=== PATIENT | male | born 1965 | race Caucasian/White ===

== ENCOUNTER 2016-08-26 12:13 | Emergency (ER) | payer BC ==
[2016-05-24 14:07] VITALS: BMI 33.0
[~2016-08-26 12:13] MED LIST: BAYER CHEWABLE81 MG PO; CATAPRES0.1 MG PO; DEPAKOTE ER500 MG PO; ELAVIL25 MG PO; GLUCOPHAGE1000 MG PO; GLUCOTROL XL 1010 MG PO; HYDROCODONE-APA1 TAB PO; KLONOPIN1 MG PO; NEURONTIN 300300 MG PO; NEURONTIN600 MG PO; PLAVIX75 MG PO; PRAVACHOL40 MG PO; TOPROL XL50 MG PO
== END 2016-08-26 16:04 | disposition home or self-care (01) ==
LOC: D.ER 12:13
DX: S80.01XA Contusion of right knee, initial encounter (principal); V43.52XA Car driver injured in collision with other type car in traffic accident, initial encounter; Y93.89 Activity, other specified; Y92.410 Unspecified street and highway as the place of occurrence of the external cause; S39.012A Strain of muscle, fascia and tendon of lower back, initial encounter; M54.9 Dorsalgia, unspecified; I10 Essential (primary) hypertension; E11.9 Type 2 diabetes mellitus without complications; I73.9 Peripheral vascular disease, unspecified; F17.200 Nicotine dependence, unspecified, uncomplicated

== ENCOUNTER 2016-10-25 08:29 | Outpatient (CLI) | payer MEDICAID ==
[~2016-10-25] VITALS: Ht 172.7 cm; Wt 95.5 kg
--- NOTE | ~2016-10-25 | HEMODYNAMI ---
PATIENT:LETA GARCIA MEDICAL RECORD: [id number] : 65 LOCATION:D.CAT ADMISSION DATE: 10/25/16 Generatedon:10/25/201611:16 Patient name: LETA GARCIA Patient #: [id number] SSN: : 1965 Date of study: 10/25/2016 Page: Of Hemodynamic Procedure Report Patient Data Patient Demographics Procedure consent was obtained First Name: LETA Gender: Male Last Name: RADHA : 1965 Middle Initial: ANGELINA Age: 51 year(s) Patient #: [id number] Race: Additional ID: [id number] Contact details [address]: [address] [place] [address] State: [place] City: [place] Zip code: [address] Past Medical History Allergies Allergen Reaction Date Comments Reported Other allergy 10/03/2014 Steroids Admission Admission Data Admission Date: 10/25/2016 Admission Time: 8:29 Lab Results Lab Result Date: 10/25/2016 Lab Result Time: 0:00 Biochemistry Name Units Result Min Max Creatinine mg/dl 0.8 --(-*--)-- 0.6 1.3 CBC Name Units Result Min Max Hemoglobin g/dl 12.6 -*(----)-- 13.5 17.5 Procedure Procedure Types Cath Procedure Diagnostic Procedure [facility] ED w/Coronaries PCI Procedure Coronary Stent Initial Miscellaneous Procedures Moderate Sedation up to 30 minutes Procedure Description Procedure Date Procedure Date: 10/25/2016 Procedure Start Time: 10:57 Procedure End Time: 11:16 Procedure Staff Name Function Benson Davila MD Performing Physician Jarrod Stark RT Scrub Catrachito Hess RN Nurse Genoveva Leal RT Monitor Aramis Womack RN Facilities Engineering Manager Procedure Data Cath Procedure Fluoroscopy Diagnostic fluoroscopy Total fluoroscopy Time: 1.9 time: 1.9 min min Diagnostic fluoroscopy Total fluoroscopy dose: dose: 8040 mGy 8040 mGy Contrast Material Contrast Material Type Amount (ml) Isovue 300 84 Entry Location Entry Primary Successful Side Size Upsize Upsize Entry Closure Succes sful Closure Location (Fr) 1 (Fr) 2 (Fr) Remarks Device Remarks Femoral Right 5 Fr 6 Fr Exoseal artery Short Estimated blood loss: 10 ml Diagnostic catheters Device Type Used For End Catheter Placement Cordis 5Fr Pigtail Catheter (MP) Cordis 5Fr JL 4.0 Left Coronary Catheter (MP) Angiography Cordis 5Fr 3DRC Catheter Right Coronary (MP) Angiography Procedure Complications No complications Procedure Medications Medication Administration Route Dosage Oxygen NC 2 l/min Lidocaine 2% added to field 20 Heparin Flush Bag added to field 2 bags (1000units/500ml NS) 0.9% NaCl I.V. 100 ml/hr Versed I.V. 2 mg Fentanyl I.V. 100 mcg Versed I.V. 1 mg Fentanyl I.V. 50 mcg Heparin Bolus I.V. 4000 units Versed I.V. 1 mg Fentanyl I.V. 50 mcg Radial Cocktail added to field 1 syringe (Verapomil 2mg/Nitro 400mcg/Heparin 1500units) Hemodynamics Rest HGB: 12.6 (g/dl) Heart Rate: 68 (bpm) Snapshots Pre Cath Intra NCS Post Cath Vital Signs Time Heart Resp SPO2 etCO2 SB7lisg NIBP (mmHg) Rhythm Pain Sedatio n Rate (ipm) (%) (mmHg) (mmHg) Status Level (bpm) 10:42:46 65 17 100 0 0 189/80(167) NSR 0 (11) 10(A) , No pain 10:47:10 68 17 100 0 0 165/96(142) NSR 0 (11) 10(A) , No pain 10:51:36 66 16 100 0 0 161/86(131) NSR 0 (11) 10(A) , No pain 10:55:58 72 18 98 0 0 165/97(130) NSR 0 (11) 9(A) , No pain 11:00:57 71 19 98 0 0 Measuring NSR 0 (11) 9(A) , No pain 11:06:00 72 16 97 0 0 159/100(144) NSR 0 (11) 9(A) , No pain 11:10:22 75 18 97 0 0 170/98(148) NSR 0 (11) 9(A) , No pain 11:14:45 74 19 96 0 0 178/100(125) NSR 0 (11) 10(A) , No pain Medications Time Medication Route Dose Verified Delivered Reason Notes Effectiveness by by 10:40:54 Oxygen NC 2 l/min Bensonmaricruz Pageie used for Giovanni Hess RN procedure 10:41:01 Lidocaine 2% added 20ml Benson Knowles for local to vial Gioavnni Davila MD anesthetic field 10:41:08 Heparin Flush added 2 bags Benson Knowles used for Bag to Giovanni Davila MD procedure (1000units/500ml field NS) 10:41:18 0.9% NaCl I.V. 100 Benson Buffie Per ml/hr Giovanni Hess RN physician 10:45:19 Radial Cocktail added 1 Benson Winston not used, (Verapomil to syringe Giovanni Hess RN femoral 2mg/Nitro field access 400mcg/Heparin obtained. 1500units) 10:51:16 Versed I.V. 2 mg Benson Winston for Giovanni Hess RN sedation 10:51:22 Fentanyl I.V. 100 mcg Benson Winston for Giovanni Hess RN sedation 11:00:28 Versed I.V. 1 mg Benson Winston for Giovanni Hess RN sedation 11:00:32 Fentanyl I.V. 50 mcg Benson Winston for Giovanni Hess RN sedation 11:04:26 Heparin Bolus I.V. 4000 Benson Winston verified units Giovanni Hess RN with dr davila 11:08:12 Versed I.V. 1 mg Benson Winston for Giovanni Hess RN sedation 11:08:16 Fentanyl I.V. 50 mcg Benson Winston for Giovanni Hess RN sedation Procedure Log Time Note 10:20:45 Aramis Womack RN sent for patient. Start room use. 10:24:07 Lab Result : Creatinine 0.8 mg/dl 10:24:07 Lab Result : Hemoglobin 12.6 g/dl 10:31:52 Time tracking: Regular hours 10:31:56 Plan of Care:Hemodynamics will remain stable., Cardiac rhythm will remain stable., Comfort level will be maintained., Respiratory function will remain adequate., Patient/ family verbilizes understanding of procedure., Procedure tolerated without complication., Recovers from procedure without complications.. 10:32:01 Patient received from Pre/Post Procedure Room to CCL 1 Alert and oriented. Tansferred to table in Supine position. 10:32:02 Warm blankets applied, and yolanda hugger turned on for patient comfort. 10:32:02 Correct patient and procedure confirmed by team. 10:32:03 Signed procedure consent form obtained from patient. 10:32:04 ECG and BP/O2 sat monitors applied to patient. 10:32:06 Full Disclosure recording started 10:40:54 Oxygen 2 l/min NC was given by Catrachito Hess RN; used for procedure; 10:41:01 Lidocaine 2% 20ml vial added to field was given by Benson Davila MD; for local anesthetic; 10:41:08 Heparin Flush Bag (1000units/500ml NS) 2 bags added to field was given by Benson Davila MD; used for procedure; 10:41:18 0.9% NaCl 100 ml/hr I.V. was given by Catrachito Hess RN; Per physician; 10:41:23 Vital chart was started 10:45:19 Radial Cocktail (Verapomil 2mg/Nitro 400mcg/Heparin 1500units) 1 syringe added to field was given by Catrachito Hess RN; ; not used, femoral access obtained. 10:47:05 Baseline sample Acquired. 10:47:08 Rhythm: sinus rhythm 10:47:24 H&P Date Dictated: 10/13/2016 Within 30 days and on chart., H&P Addendum completed by physician on day of procedure. (MUST COMPLETE FOR ALL OUTPATIENTS). 10:47:26 Pre-procedure instructions explained to patient. 10:47:26 Pre-op teaching completed and patient verbalized understanding. 10:47:28 Family in waiting room. 10:47:29 Patient NPO since Midnight. 10:48:01 Is the patient allergic to Iodine/contrast media? No. 10:48:04 Is patient on blood thinner?Yes 10:48:11 ACC The patient was administered the following blood thiners within the last 24 hours: ACCPlavix 10:48:13 Patient diabetic? Yes. 10:48:23 If diabetic: On Metformin? Yes 10:48:29 If on Metformin: Last Dose? 10/24/2016 10:48:34 Previous problem with sedation/anesthesia? No ? 10:48:55 Snore? No 10:49:07 Sleep apnea? No 10:49:08 Deviated septum? No 10:49:09 Opens mouth fully? Yes 10:49:09 Sticks out tongue? Yes 10:49:17 Airway obstruction? Yes Asthma 10:49:21 Dentures? Yes In 10:49:24 Pre procedure: right dorsailis pedis pulse 2+ Normal; easily identifiable; not easily obliterated 10:49:26 Modified Shyam's test Ulnar < 7 seconds 10:49:27 Patient pain scale 0/10 ?. 10:49:32 IV patent on arrival in right forearm with 0.9% NaCl at [facility]. 10:49:38 Lab results completed and on chart. 10:49:42 Right Radial & Right Groin area was prepped with chlora-prep and draped in sterile fashion 10:49:43 Alarms reviewed by R. N. 10:49:44 Sharps counted by scrub and verified by R.N. 10:49:45 Final Timeout: patient, procedure, and site verified with staff and physician. All members of the team are in agreement. 10:49:50 Right Radial site verified by team. 10:49:53 Physical assessment completed. ASA score P 2 - A patient with mild systemic disease as per Benson Davila MD. 10:49:57 Sedation plan: IV Moderate Sedation Versed, Fentanyl 10:50:01 Use device set Radial Dx 10:50:02 Acist Syringe opened to sterile field. 10:50:03 Medline Cath Pack opened to sterile field. 10:50:03 Bag Decanter opened to sterile field. 10:50:04 Terumo 6Fr Slender Glidesheath opened to sterile field. 10:50:[address] 260cm J .035 wire opened to sterile field. 10:50:05 Acist Hand Control opened to sterile field. 10:50:05 Acist Manifold opened to sterile field. 10:50:06 Tegaderm 4 x 4 opened to sterile field. 10:51:16 Versed 2 mg I.V. was given by Catrachito Hess RN; for sedation; 10:51:22 Fentanyl 100 mcg I.V. was given by Catrachito Hess RN; for sedation; 10:57:07 Local anesthetic to right femoral artery with Lidocaine 2% by Benson Davila MD.INITIAL ACCESS ONLY 10:57:07 Zero performed for pressure channel P1 10:57:17 Procedure started. 11:00:07 A 5 Fr sheath was inserted into the Right Femoral artery 11:00:28 Versed 1 mg I.V. was given by Catrachito Hess RN; for sedation; 11:00:32 Fentanyl 50 mcg I.V. was given by Catrachito Hess RN; for sedation; 11:00:34 Use device set Multipack Set 11:00:36 Diagnostic Infinity 5Fr Multipack catheter opened to sterile field. 11:00:40 A Cordis 5Fr Pigtail Catheter (MP) was advanced over the wire and used for . 11:00:46 Terumo 5Fr [place] Sheath opened to sterile field. 11:01:06 LV gram done using PEREZ 11:01:10 EF : 55 % 11:01:12 LV hemodynamics recorded. 11:01:15 Injector settings: Ml/sec: 10, Volume: 20, 11:01:16 Catheter removed. 11:01:23 A Cordis 5Fr JL 4.0 Catheter (MP) was advanced over the wire and used for Left Coronary Angiography. 11:02:53 Catheter removed. 11:03:01 A Cordis 5Fr 3DRC Catheter (MP) was advanced over the wire and used for Right Coronary Angiography. 11:03:43 Catheter removed. 11:04:26 Heparin Bolus 4000 units I.V. was given by Catrachito Hess RN; ; verified with dr davila 11:05:58 Sheath upsized to a 6 Fr Short. 11:06:14 6 Fr AR 1.0 guide catheter was inserted over the wire 11:07:33 Escalera Whisper J 300cm 0.014 guide wire opened to sterile field. 11:07:34 Medtronic Launcher 6Fr AR 1.0 guide catheter opened to sterile field. 11:07:35 Zodio BasixCompak Inflation Kit opened to sterile field. 11:07:35 Terumo 6Fr [place] Sheath opened to sterile field. 11:07:42 Whisper wire advanced. 11:08:12 Versed 1 mg I.V. was given by Catrachito Hess RN; for sedation; 11:08:16 Fentanyl 50 mcg I.V. was given by Catrachito Hess RN; for sedation; 11:08:21 Inflation Number: 1 A Syros Pharmaceuticalstronic Integrity 3.0 X 12 stent was prepped and advanced across the Mid RCA. The stent was deployed at 17 ALEXANDRE for 0:08 (min:sec). 11:08:35 Stent catheter was removed intact over wire. 11:08:36 Wire removed. 11:08:36 Guide catheter removed. 11:08:49 Sheath removed intact; hemostasis achieved with Exoseal to the Right Femoral artery. 11:08:52 Procedure ended.(Physican Out) 11:09:04 Cordis 6Fr Exoseal opened to sterile field. 11:09:29 Fluoroscopy time 01.90 minutes. 11::34 Fluoroscopy dose: 8040 mGy 11::34 Flurop Dose total: 8040 11:09:38 Contrast amount:Isovue 300 84ml. 11:09:39 Sharps counted by scrub and verified by R.N. 11:09:40 Insertion/operative site no bleeding no hematoma. 11:09:43 Post-op/insertion site Right Femoral artery dressed using a 4 x 4 and Tegaderm. 11:09:46 Post right femoral artery:stable, clean and dry 11:09:49 Post Procedure Pulses reassessed and unchanged 11:09:53 Post-procedure physical assessment completed. ASA score P 2 - A patient with mild systemic disease as per Benson Davila MD. 11:09:56 Post procedure rhythm: sinus rhythm 11:09:59 Estimated blood loss: 10 ml 11:10:00 Post procedure instruction explained to patient.Patient verbalizes understanding. 11:10:01 Patient needs reinforcement of post procedure teaching. 11:10:14 Procedure type changed to Cath procedure, Diagnostic procedure, LHC, LHC w/Coronaries, PCI procedure, Coronary Stent Initial, Miscellaneous Procedures, Moderate Sedation up to 30 minutes 11:10:20 Procedure Complication : No complications 11:11:19 See physician's report for complete and final results. 11:11:22 Procedure and supply charges have been captured, reviewed, submitted and are correct. 11:16:10 Vital chart was stopped 11:16:13 Report given to Pre/Post Procedure Room. 11:16:16 Patient transfered to Pre/Post Procedure Room with Stretcher. 11:16:21 Procedure ended. 11:16:21 Full Disclosure recording stopped 11:16:38 End room use (Document Last) Intervention Summary Intervention Notes Time ActionType Lesion and Equipment Action# Pressure Duration Attributes Used 11:08:21 Place stent Mid RCA Medtronic 1 17 00:08 Integrity 3.0 X 12 stent Device Usage Item Name Manufacture Quantity Catalog Hospital Part Current Minimal Lot# / Number Charge Number Stock Stock Serial# Code Acist Acist 1 88173 682095 675371 715075 20 Syringe Medical Systems Inc Medline Cardinal 1 [id number] 412052 87974 956188 5 Cath Pack Health Bag Microtek 1 2001S 838392 52193 744995 5 Aradigm Inc. Terumo 6Fr Terumo 1 [id number] 014177 044723 897375 [address] Rd 1 718220 896398 503605 110609 30 260cm J .035 wire Acist Hand Acist 1 81145 460153 228917 534229 5 Control Medical Systems Inc Acist Acist 1 59904 698831 970940 088210 5 Manifold Medical Systems Inc Tegaderm 4 3M 1 1626W 762497 450393 796125 5 x 4 Diagnostic Cardinal 1 [id number] 172291 88336 594392 30 Infinity Health 5Fr Multipack catheter Cordis 5Fr Cardinal 1 799011 5 Pigtail Health Catheter (MP) Terumo 5Fr Terumo 1 [id number] 902376 408354 480563 40 [place] Sheath Cordis 5Fr Cardinal 1 290363 5 JL 4.0 Health Catheter (MP) Cordis 5Fr Cardinal 1 968481 5 3DRC Health Catheter (MP) Escalera Escalera 1 [id number] 029517 829215 477078 5 Whisper J Vascular 300cm 0.014 guide wire Medtronic Medtronic 1 [id number] 787531 54039 543113 1 Launcher 6Fr AR 1.0 guide catheter Merit Merit 1 [id number] 987762 681427 444899 15 Jeeves Medical Inflation Kit Terumo 6Fr Terumo 1 [id number] 652068 517918 199946 40 [place] Sheath Medtronic Medtronic 1 [id number] 486015 126019 841315 2 [id number] Integrity 3.0 X 12 stent Cordis 6Fr Cardinal 1 EX600 489928 187290 026020 10 [email or web address] Signature Audit [place] Stage Time Signature Unsigned Intra-Procedure 10/25/2016 Genoveva 11:16:53 AM Counts RT(R) Signatures Monitor : Genoveva Signature : Counts RT Date : Time : [address] [place] [address]
[2016-10-25] MEDS ORDERED: LISINOPRIL-HCTZ1 T13 PO (09:17)
[2016-10-25 09:18] VITALS: BP 180/84; Ht 172.7 cm; Wt 95.5 kg
[2016-10-25 09:44] LABS: BASOPHILS 0.6 % (0.0-2.0); EOSINOPHILS 4.3 % (0-7); HEMOGLOBIN 12.6 g/dL (13.5-17.5); IMMATURE GRANULOCYTES 0.7 % (0-5); LYMPHOCYTES 38.1 % (15-50); MCH 30.1 pg (26.0-34.0); MCHC 33.2 g/dL (31.0-37.0); MCV 90.9 fL (80.0-100.0); MONOCYTES 6.1 % (2-11); NEUTROPHILS 50.2 % (40-80); PLATELET COUNT 225 10x3/uL (130-400); RBC 4.18 10x6/uL (4.20-6.10); RDW 12.6 % (11.5-14.5); WBC 10.5 10x3/uL (4.8-10.8)
--- NOTE | 2016-10-25 09:56 | NUR ---
0945 RECEIVED PT FROM INDIRECT SALES EXEC. PT IS DROWSY, DENIES ANY C/O PAIN OR NAUSEA. 6 FR VASCADE TO RIGHT GROIN IS CDI, NO BLEEDING OR HEMATOMA NOTED. PEDAL PULSES PALPABLE. PT INSTRUCTED TO KEEP RIGHT LEG STRAIGHT AND HEAD TO PILLOW AND PT VERBALIZES UNDERSTANDING. CALL LIGHT IN REACH, FAMILY AT BEDSIDE.
[2016-10-25 10:03] LABS: CALC OSMOLALITY 277 mosm/kg (275-300); CARBON DIOXIDE 27.5 mmol/L (21.0-32.0); CHLORIDE - SERUM 102 mmol/L (98-107); CREATININE - SERUM 0.8 mg/dL (0.6-1.3); GLUCOSE 146 mg/dL (74-106); POTASSIUM - SERUM 4.9 mmol/L (3.5-5.1); SODIUM 137 mmol/L (136-145); UREA NITROGEN 14 mg/dL (7-18); eGFR NON AFRICAN AMERICAN > 90 mL/min (90-120)
--- NOTE | 2016-10-25 10:06 | NUR ---
1000 PT DENIES ANY C/O, DRESSING TO RIGHT GROIN IS CDI, NO BLEEDING OR HEMATOMA NOTED. PEDAL PULSES PALPABLE, RR EVEN AND UNLABORED. CALL LIGHT IN REACH, FAMILY AT BEDSIDE.
--- NOTE | 2016-10-25 11:45 | NUR ---
1145 VSS WITH CHEST PAIN DENIED 6 FR EXOSEAL R/GROIN CDI NO BLEEDING NO HEMATOMA NOTED. INSTRUCTED PATIENT TO KEEP HEAD FLAT ON PILLOW WITH RLE STRAIGHT 1200 SANDWICH AND SODA TO BEDSIDE.
--- NOTE | 2016-10-25 12:05 | NUR ---
PATIENT REQUEST URINAL WITH NEEDS PROVIDED AT SIDE. PATIENT ATTEMPTS TO GET UP WITH TRYING TO STOP HIM. PATIENT STARTED YELLING AT CRUSING LOUD FRANCISCO PRESENT TO DEAL WITH ISSUE
--- NOTE | 2016-10-25 12:11 | NUR ---
PRESSURE RELAEASED FROM FEMSTOP WITH PATIENT VERBALIZING RELIEF. HEMATOMA MARKED WITH NO INCREASE. HR 70 BP 129/61 WILL MONITOR
--- NOTE | 2016-10-25 12:36 | NUR ---
ANSWERED CALL TO ROOM WITH PATIENT DEMANDING TO GET UP 6 FR EXOSEAL R/GROIN CDI PATIENT REFUSES TO BE STILL ATTEMPTING TO GET UP FRANCISCO AT [facility]
--- NOTE | 2016-10-25 12:38 | NUR ---
1215 PATIENT MOVING ABOUT IN BED INSTRUCTED PATIENT OF RISK TO BLEED. PATIENT REFUSES TO BE STILL STATING HE WILL NOT LAY THERE FOR 3 HRS. VERBALIZED HE IS GOING TO GET UP AND LEAVE FRANCISCO NOTIFIED
--- NOTE | 2016-10-25 12:40 | NUR ---
PATIENT SITTING UP IN BED INSTRUCTED PATIENT TO LAY DOWN REFUESED TO FOLLOW INSTRUCTIONS. C/O OF CHRONIC NECK PAIN DR PETTIT NOTIFIED WITH NEW ORDERS RECIEVED
--- NOTE | 2016-10-25 12:53 | NUR ---
NORCO 2 TABS GIVEN ORAL FOR PAIN ORDERED BY DR PETTIT PATIENT CONTINUES TO SIT UP AND REFUSES TO BE STILL
--- NOTE | 2016-10-25 13:22 | NUR ---
PATIENT GETS UP AT BEDSIDE REMOVED BP CUFF AND MONITOR LEADS. DRESSED FULLY IN CLOTHING THEN GETS BACK IN BED.
--- NOTE | 2016-10-25 13:40 | NUR ---
1340 PATIENT YELLING LOUD IN ROOM WHILE TALKING ON THE PHONE. STATED HE IS GOING TO LEAVE. FRANCISCO AND GEORGI NOTIFIED AND PRESENT. ENCOURAGED PATIENT TO GET BACK IN BED AND EDUCATED PATIENT ON HIGH RISK TO BLEED. PATIENT REFUSING TO OBEY. DR PETTIT NOTIFIED WITH PATIENT TRYING TO LEAVE UNIT. PATIENT LEFT AMUBLATORY WITH STAFF TRYING TO GET HIM BACK IN BED. PIV REMOVED IN HALLWAY WITH DRESSING APPLIED.
--- NOTE | 2016-10-31 10:08 | OP ---
PATIENT NAME: LETA GARCIA MEDICAL RECORD: [id number] :65 LOCATION:D.CAT ADMISSION DATE: SURGEON: JANELL PETTIT MD DATE OF OPERATION: 10/25/2016 PROCEDURES: 1. PTCA stent RCA. 2. Left heart catheterization. 3. Selective coronary angiography. 4. Left ventriculogram. INDICATION: Angina and coronary artery disease. PROCEDURE IN DETAIL: After informed consent was obtained and after a detailed explanation of risks, benefits as well as alternative therapies, the patient elected to proceed with angiogram and angioplasty. The right femoral area was prepped and draped in normal sterile fashion. Right femoral artery was cannulated via modified Seldinger technique with placement of 6-Filipino sheath. All catheters exchanged through this sheath. FINDINGS: The left ventriculogram was performed in standard 30-degree PEREZ view, reveals good cardiac wall motion throughout all segments. Overall ejection fraction is 60%. SELECTIVE CORONARY ANGIOGRAPHY: 1. Left main showed no significant angiographic disease. 2. Left anterior descending has previously placed stents, these are widely patent with no significant restenosis. No disease elsewise throughout the LAD or its branches. 3. Left circumflex has previously placed stents, these are widely patent, first obtuse marginal does have up to 70% stenosis. This is not stented area. 4. The right coronary has previously placed stents, these are widely patent; however, there is a 70% to 75% stenosis in the mid vessel. This correlates with perfusion defect on nuclear stress testing. PTCA STENT OF THE RCA: The stent used is a 3.0 x 12 mm Integrity. Result was 0% residual stenosis. OVERALL IMPRESSION: Successful percutaneous transluminal coronary angioplasty stent of the right coronary artery going from 70+ percent initial stenosis to 0% residual. TRANSINT:[id number] Voice Confirmation ID: [id number] DOCUMENT ID: [id number] JANELL PETTIT MD at 1008 CC: [id number] DICTATION DATE: 10/25/16 1114 POWERHOUSE MECHANIC: 10/25/16 1256 DEP CLI 10/25/16 [facility] [address] [id number]
== END 2016-10-25 14:01 | disposition home or self-care (01) ==
LOC: D.CATH 08:29
PROVIDERS: Internal Medicine Interventional Cardiology
DX: I25.119 Atherosclerotic heart disease of native coronary artery with unspecified angina pectoris (principal); Z95.5 Presence of coronary angioplasty implant and graft

== ENCOUNTER 2016-11-23 14:54 | Emergency (ER) | payer MEDICAID ==
[2016-10-25 09:18] VITALS: BMI 32.0
[~2016-11-23 14:54] MED LIST changes: +LISINOPRIL-HCTZ1 T13 PO
== END 2016-11-23 16:00 | disposition home or self-care (01) ==
LOC: D.ER 14:54
DX: M25.551 Pain in right hip (principal); I10 Essential (primary) hypertension; E11.9 Type 2 diabetes mellitus without complications; I73.9 Peripheral vascular disease, unspecified; F17.200 Nicotine dependence, unspecified, uncomplicated

== ENCOUNTER → 2016-11-29 08:34 | Outpatient (CLI) | payer MEDICAID ==
[2016-10-25 09:18] VITALS: BMI 32.0
== END | disposition home or self-care (01) ==
LOC: D.MRI 11-24 13:00
DX: M87.9 Osteonecrosis, unspecified (principal)

== ENCOUNTER → 2016-11-30 18:31 | Outpatient (CLI) | payer MEDICAID ==
[2016-10-25 09:18] VITALS: BMI 32.0
== END | disposition home or self-care (01) ==
LOC: D.LABREF 18:31
DX: M16.11 Unilateral primary osteoarthritis, right hip (principal)

== ENCOUNTER 2016-12-15 08:30 | Inpatient (IN) | payer MEDICAID ==
[~2016-12-15] VITALS: Ht 172.7 cm; Wt 95.0 kg
--- NOTE | ~2016-12-15 | OP ---
PATIENT NAME: LETA GARCIA MEDICAL RECORD: [id number] :65 LOCATION:D.MS [id number] ADMISSION DATE:12/19/16 SURGEON: LETA MUJICA MD DATE OF OPERATION: 12/19/2016 PREOPERATIVE DIAGNOSIS: Degenerative arthritis of the right hip. POSTOPERATIVE DIAGNOSIS: Degenerative arthritis of the right hip. PROCEDURE: Right total hip arthroplasty. SURGEON: Leta Mujica MD ANESTHESIA: General. INTRAOPERATIVE COMPLICATIONS: None. 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 IMPLANTS USED: Woody Tritanium cup size 54 over standard shell, size 4 Accolade TMZF coated stem with -5 Biolox ceramic head. OPERATIVE SUMMARY IN DETAIL: After obtaining the appropriate preoperative orthopedic surgery consents as well as anesthetic consultation, evaluation and clearance, the patient was brought to the operating room and placed on the operating table in supine position. After general laryngeal mask was administered, the patient was placed in the left lateral decubitus position. All pressure points were well padded to include down leg peroneal nerve pad as well as axillary roll. The patient was held firmly to the operating room table using the vacuum pack suction system. Right upper extremity and hip were then prepped and draped in a routine sterile fashion. Curvilinear incision was made over the greater trochanter, taken down to the level of the IT band, which was split in line of fibers of the IT band to reveal the gluteus medius and minimus attachment to the greater trochanter. These were reflected anteriorly and saved for later reapproximation. The hip capsule was cut in a T-type fashion and it too was saved for later reapproximation. Hip was dislocated and femoral neck cutting guide was made. Femoral neck cut was made using the femoral neck cutting guide for the Accolade II stem. Acetabulum was approached. Circumferential labrectomy was followed by serial and sequential reaming to a size 53, a size 54 Tritanium cluster hole cup was put into place with good capture followed by placement of the polyethylene liner, which was checked. Attention was then returned to the proximal femur. Serial and sequential reaming and broaching were done for a size 4 TMZF coated Accolade stem. Trial was undertaken with the head. It was felt that -5 was the most appropriate. A -[address] on the Rhodes taper and reduced, the hip was taken through range of motion and found to be excellent. Intraoperative radiograph showed good position and placement of all components. Having completed this, wound was copiously irrigated. The hip capsule was closed with #2 Ethibond followed by a JuggerKnot reapproximation of the gluteus medius and minimus back to the greater trochanter. IT band was closed with #5 Ethibond followed by #1 Vicryl, 2-0 Vicryl and skin marvin. Sterile dressings were applied. The patient was awakened, taken to recovery room in stable condition. All final needle and sponge counts were correct. OPERATIVE REPORT [id number] LETA GARCIA TRANSINT:[id number] Voice Confirmation ID: [id number] DOCUMENT ID: [id number] LETA MUJICA MD CC: [id number] DICTATION DATE: 12/19/16 1209 SOLAR INSTALLATION TECHNICIAN: 12/19/16 204 ADM IN [facility] [address] [place] [address]
[2016-12-15 08:46] LABS: BASOPHILS 0.3 % (0-2); EOSINOPHILS 3.3 % (0-7); HEMATOCRIT 40.8 % (42.0-54.0); HEMOGLOBIN 13.7 g/dL (13.5-17.5); MCH 30.9 pg (26.0-34.0); MCHC 33.6 g/dL (31.0-37.0); MCV 92.1 fL (80.0-100.0); MEAN PLATELET VOLUME 10.4 fL (7.4-10.4); MONOCYTES 7.8 % (2-11); NEUTROPHILS 48.6 % (40-80); PLATELET COUNT 256 10x3/uL (130-400); RBC 4.43 10x6/uL (4.20-6.10); RDW 12.6 % (11.5-14.5); WBC 13.8 10x3/uL (4.8-10.8)
[2016-12-15 08:50] LABS: APPEARANCE CLEAR (CLEAR); BILIRUBIN NEGATIVE (NEGATIVE); COLOR YELLOW (YELLOW); GLUCOSE NEGATIVE (NEGATIVE); KETONE NEGATIVE (NEGATIVE); LEUKOCYTE ESTERASE NEGATIVE (NEGATIVE); NITRITE NEGATIVE (NEGATIVE); PROTEIN NEGATIVE (NEGATIVE); SPECIFIC GRAVITY 1.015 (1.005-1.020); UROBILINOGEN NORMAL (NORMAL)
[2016-12-15 08:55] LABS: CALC OSMOLALITY 271 mosm/kg (275-300); CARBON DIOXIDE 28.8 mmol/L (21.0-32.0); CHLORIDE - SERUM 96 mmol/L (98-107); POTASSIUM - SERUM 4.7 mmol/L (3.5-5.1); SODIUM 132 mmol/L (136-145); UREA NITROGEN 14 mg/dL (7-18); eGFR NON AFRICAN AMERICAN 84 mL/min (90-120)
[2016-12-15 08:56] LABS: APTT 31.4 SECONDS (22.8-39.4); GLUCOSE 202 mg/dL (74-106); INR 0.95 (0.85-1.17); PROTIME 12.5 SECONDS (11.6-15.0)
[2016-12-19] VITALS (16 sets, daily range): BP systolic 98–144; BP diastolic 54–92; Ht 172.7 cm; Wt 95.0 kg
--- NOTE | 2016-12-19 09:27 | NUR ---
0920 REGLAN GIVEN; UNABLE TO SCAN ON E-MAR
--- NOTE | 2016-12-19 19:00 | NUR ---
PATIENT IN BED WATCHING TV. HOB 40 DEGREES. AAOX4. RR EVEN AND UNLABORED. 0 S/S OF DISTRESS. STATES PAIN IS A 9/10. IV TO LEFT HAND PATENT WITH NO REDNESS OR SWELLING. DRESSING TO RIGHT HIP CDI. SCD'S ON. B/A ON. SRX2. BED LOW. CALL LIGHT WITHIN REACH.
--- NOTE | 2016-12-19 21:00 | NUR ---
NIGHTTIME MEDS GIVEN. PATIENT STILL ATTEMPTING TO VOID.
--- NOTE | 2016-12-19 23:00 | NUR ---
PATIENT UNABLE TO VOID. I&O CATH YIELDED 1200ML.
[2016-12-20] VITALS: BP 140/70
--- NOTE | 2016-12-20 03:29 | NUR ---
PATIENT AWAKE WATCHING TV. HAS VOIDED 4 TIMES IN URINAL NOW.
[2016-12-20 05:38] LABS: HEMATOCRIT 30.5 % (42.0-54.0); HEMOGLOBIN 10.1 g/dL (13.5-17.5); MCH 30.1 pg (26.0-34.0); MCHC 33.1 g/dL (31.0-37.0); MCV 90.8 fL (80.0-100.0); MEAN PLATELET VOLUME 10.2 fL (7.4-10.4); RBC 3.36 10x6/uL (4.20-6.10); RDW 12.7 % (11.5-14.5); WBC 13.1 10x3/uL (4.8-10.8)
[2016-12-20 08:07] VITALS: BP 144/72
--- NOTE | 2016-12-20 08:09 | NUR ---
PT ASSESSMENT COMPLETE NO ACUTE DISTRESS NOTED DRESSING INTACT TO RIGHT HIP CONTINUOUS PULSE OX IN PLACE FOR MONITOR FOR RADIO REPORTER. CALL LIGHT INREACH SIDE RAILS UP X 2 VOICES ALL NEEDS TO STAFF.
--- NOTE | 2016-12-20 09:16 | NUR ---
PATIENT RATED PAIN A 10/10. PATIENT REFUSED THE PERCOCET AT THIS TIME, PATIENT STATED "I DISCUSSED WITH VERONIKA, THE NURSE PRACTIONER AND SHE AGREED IT WILL BE GOOD FOR ME TO START WITH A NORCO AND IF THAT DOESN'T CONTROL MY PAIN THEN NEXT I WILL GET A PERCOCET."
--- NOTE | 2016-12-20 10:23 | NUR ---
* Is the patient Alert and Oriented? Yes 0 * How many steps to enter\exit or inside your home? 5 0 * PCP Dr. Robles but changing to Dr. Keith 0 * Pharmacy [facility] 0 * Preadmission Environment Home with Family 0 * ADLs Partial Dependent 0 * Partial ADLs (Assistance needed) Ambulation 0 * Equipment Cane 0 * List name and contact numbers for known caregivers / representatives who currently or will assist patient after discharge: Spouse - Neema [phone] 0 * Additional services required to return to the preadmission environment? Yes 0 * Can the patient safely return to the preadmission environment? Yes 0 * Has this patient been hospitalized within the prior 30 days at any hospital? No 12/20/2016 10:24 DCP: Discharge Planning Patient Name: LETA GARCIA Admission Status: Elective Accout number: [id number] Admission Date: 12-19-2016 : 1965 Admission Diagnosis: Attending: LUCRETIA Current LOS: 1 Anticipated DC Date: 12-21-2016 Planned Disposition: Outpatient PT\OT Primary Insurance: [facility] PRIVATE OPTIONS [facility] Discharge Planning Comments: CM met with patient to assess dc plans/needs. Patient states he lives at home with his , Neema. He reports he uses a cane regularly for ambulation due to his bad back and hip pain. At dc, he will return home with his . He has chosen to come to [facility] for outpatient physical therapy - Appt. scheduled 12/23 @ 1045 - Rx faxed. A rolling walker has been ordered through [employer] [facility] by MD office prior to admission and will be delivered to the hospital prior to discharge. CM will follow. Occupational Medicine Physician: Cassandra Chen
[2016-12-20 12:47] VITALS: BP 123/78
--- NOTE | 2016-12-20 16:11 | NUR ---
IV DISCONTINUED TO LEFT HAND AT THIS TIME. 20GAUGE IV TO LEFT FOREARM PATENT AND INTACT STARTED AT THIS TIME X1 ATTEMPT
--- NOTE | 2016-12-20 16:12 | NUR ---
PT HERE FOR RIGHT TOTAL HIP REPLACEMENT PT AOX4 RESP EVEN AND NONLABORED LUNG SOUNDS CLEAR. BANDAGE INTACT TO RIGHT HIP AT THIS TIME. BED AT LOWEST SETTING CALL LIGHT WITHIN REACH PT. DENIES NEEDS AT THIS TIME. WILL CONTINUE TO MONITOR
[2016-12-20 16:27] VITALS: BP 154/77
[2016-12-20 20:00] VITALS: BP 122/83
--- NOTE | 2016-12-20 20:00 | NUR ---
PATIENT IN BED WATCHING TV. HOB 40 DEGREES. AAOX4. RR EVEN AND UNLABORED. 0 S/S OF DISTRESS. STATES PAIN IS A 10/10. IV TO LEFT FA S/L WITH NO REDNESS OR SWELLING. DRESSING TO RIGHT HIP CDI. SCD'S IN ROOM BUT OFF. B/A ON. SRX2. BED LOW. CALL LIGHT WITHIN REACH.
--- NOTE | 2016-12-20 21:30 | NUR ---
ASSESSMENT COMPLETE. NIGHTTIME MEDS GIVEN. PERCOCET GIVEN FOR PAIN.
[2016-12-21 04:00] VITALS: BP 123/68
--- NOTE | 2016-12-21 04:32 | NUR ---
PATIENT HAS BEEN ALTERNATING PERCOCET AND NORCO FOR PAIN EVERY TWO HOURS PER ORDER. NOW SLEEPING WITH NO DISTRESS NOTED.
[2016-12-21 06:16] LABS: HEMATOCRIT 26.5 % (42.0-54.0); HEMOGLOBIN 9.2 g/dL (13.5-17.5); MCH 30.9 pg (26.0-34.0); MCHC 34.7 g/dL (31.0-37.0); MCV 88.9 fL (80.0-100.0); MEAN PLATELET VOLUME 10.1 fL (7.4-10.4); RBC 2.98 10x6/uL (4.20-6.10); RDW 12.5 % (11.5-14.5); WBC 13.2 10x3/uL (4.8-10.8)
--- NOTE | 2016-12-21 06:20 | NUR ---
PATIENT IN BED WATCHING TV. PERCOCET GIVEN FOR PAIN. NO OTHER NEEDS AT THIS TIME.
--- NOTE | 2016-12-21 07:30 | NUR ---
REQUEST PAIN MEDS AND HELP TO GET UP IN CHAIR, PAIN MEDS GIVEN
[2016-12-21] MEDS ORDERED: PERCOCET 10/3251 TA1 PO (07:51)
[2016-12-21] MEDS ORDERED: ELIQUIS2.5 MG PO (07:52)
--- NOTE | 2016-12-21 08:30 | NUR ---
HELPED TO BATHROOM, MEDS GIVEN, DENIES OTHER NEEDS, CALL LIGHT IN REACH, ASSESSMENT COMPLETE, WILL CONTINUE TO MONITOR
[2016-12-21 08:57] VITALS: BP 139/79
--- NOTE | 2016-12-21 12:00 | NUR ---
PT AOX4 RESP EVEN AND NONLABORED PT HERE FOR PT AFTER RIGHT HIP REPLACEMENT IV TO LEFT FOREARM PATENT AND INTACT PT AMBULATING WITH WALKER IN PT ROOM AT THIS TIME. CALL LIGHT IN REACH WILL CONTINUE TO MONITOR PT DENIES NEEDS AT THIS TIME
--- NOTE | 2016-12-21 13:30 | NUR ---
DISCHARGE PAPERS AND INSTRUCTIONS GIVEN TO PT AND SPOUSE, QUESTIONS ANSWERED, IV REMOVED TIP INTACT, DISCHARGED PER WC WITH BELONGINGS
--- NOTE | 2016-12-21 13:53 | NUR ---
12/21/2016 13:51 DCP: Discharge Planning Patient Name: LETA GARCIA Encounter No: [id number] : 1965 Primary Insurance: [place] PRIVATE OPTIONS [facility] Anticipated DC Date: 12-21-2016 Planned Disposition: Outpatient PT\OT External Planned Provider: : DCP follow-up note: DC order rec'd. Patient and family in agreement with discharge plan. No changes to plan. Rolling walker has been delivered. Case management will follow and assist as needed. Cassandra Chen
--- NOTE | 2016-12-21 13:56 | NUR ---
* Is the patient Alert and Oriented? Yes 0 * How many steps to enter\exit or inside your home? 6-7 0 * PCP Dr. Bocanegra 0 * Pharmacy [facility] [address] 0 * Preadmission Environment Home with Family 0 * ADLs Independent 0 * List name and contact numbers for known caregivers / representatives who currently or will assist patient after discharge: Sister Yuridia Edouard [phone] 0 * Additional services required to return to the preadmission environment? Yes 0 * Can the patient safely return to the preadmission environment? Yes 0 * Has this patient been hospitalized within the prior 30 days at any hospital? No 12/21/2016 13:57 DCP: Discharge Planning Patient Name: JENN WINSLOW Admission Status: Elective Accout number: [id number] Admission Date: 12-20-2016 : 05-27-1951 Admission Diagnosis:UNILATERAL PRIMARY OSTEOARTHRITIS, RIGHT KNEE Attending: MAURISIO Current LOS: 1 Anticipated DC Date: 12-22-2016 Planned Disposition: Home with Home Health Primary Insurance: MEDICARE A & B Discharge Planning Comments: CM met with patient to assess dc plans/needs. Patient states she lives alone & is independent with all ADL's & IADL's. She reports she has a good support system of family & friends. She states she will return home at discharge. She will not have transportation to outpatient physical therapy until she is released to drive. Discussed home health options. COSTA signed for [facility]. Initial referral faxed. Uday lara order faxed to Jenn at [facility] to be delivered to hospital prior to discharge. CM will follow. Motor Runner: Cassandra Chen
== END 2016-12-21 14:07 | disposition home or self-care (01) | DRG 470 ==
LOC: D.SDCHOLD 08:30 → D.MS 12-19 05:17 → D.SDCHOLD 12-19 05:17 → D.MS 12-19 08:12 → D.SDCHOLD 12-19 08:30 → D.MS 12-21 14:07
PROVIDERS: ADMIT Orthopaedic Surgery
PROC: 0SR904Z Replacement of Right Hip Joint with Ceramic on Polyethylene Synthetic Substitute, Open Approach (ICD-10-PCS; principal; 2016-12-19 09:15)
DX: M16.11 Unilateral primary osteoarthritis, right hip (principal); D62 Acute posthemorrhagic anemia; M94.261 Chondromalacia, right knee; E78.5 Hyperlipidemia, unspecified; R33.9 Retention of urine, unspecified; E66.9 Obesity, unspecified; Z68.32 Body mass index [BMI] 32.0-32.9, adult; I10 Essential (primary) hypertension; I25.10 Atherosclerotic heart disease of native coronary artery without angina pectoris; J45.909 Unspecified asthma, uncomplicated; F17.210 Nicotine dependence, cigarettes, uncomplicated

== ENCOUNTER → 2017-01-23 17:13 | Outpatient (CLI) | payer MEDICAID ==
[2016-12-19 20:27] VITALS: BMI 31.8
[~2017-01-23 17:13] MED LIST changes: +ELIQUIS2.5 MG PO; +PERCOCET 10/3251 TA1 PO
[2017-01-23 18:18] LABS: CHOL - HDL RATIO 2.8 ratio (2.3-4.9); LDL-HDL RATIO 1.4 ratio (1.5-3.5)
== END | disposition home or self-care (01) ==
LOC: D.LABREF 17:13
PROVIDERS: Internal Medicine Interventional Cardiology
DX: E78.5 Hyperlipidemia, unspecified (principal)

== ENCOUNTER 2017-02-02 21:14 | Observation (INO) | payer MEDICAID ==
[~2017-02-02] VITALS: Ht 172.7 cm; Wt 88.2 kg
--- NOTE | ~2017-02-02 | HEMODYNAMI ---
PATIENT:LETA GARCIA MEDICAL RECORD: [id number] : [birth year] LOCATION:[facility] D2120 ADMISSION DATE: 02/02/17 Generatedon:02/03/201716:17 Patient name: LETA GARCIA Patient #: [id number] SSN: : 1965 Date of study: 02/03/2017 Page: Of Hemodynamic Procedure Report Patient Data Patient Demographics Procedure consent was obtained First Name: LETA Gender: Male Last Name: RADHA : 1965 [facility] Initial: ANGELINA Age: 51 year(s) Patient #: [id number] Race: Additional ID: [id number] Contact details [address]: [address] [place] [address] State: [place] City: [place] Zip code: [address] Past Medical History Allergies Allergen Reaction Date Comments Reported Other allergy 10/03/2014 Steroids Admission Admission Data Admission Date: 02/02/2017 Admission Time: 23:55 Room #: D.2120 Lab Results Lab Result Date: 02/03/2017 Lab Result Time: 0:00 Biochemistry Name Units Result Min Max BUN mg/dl 14 --(--*-)-- 7 18 Creatinine mg/dl 0.8 --(-*--)-- 0.6 1.3 Creatinine l 84 --(-*--)-- 21 215 Kinase Troponin l ng/ml 0.017 --(-*--)-- 0 0.06 CBC Name Units Result Min Max Hemoglobin g/dl 11.8 *-(----)-- 13.5 17.5 Procedure Procedure Types Cath Procedure Diagnostic Procedure LHC LHC w/Coronaries PCI Procedure Coronary Stent Initial Miscellaneous Procedures Procedure Description Procedure Date Procedure Date: 02/03/2017 Procedure Start Time: 15:59 Procedure End Time: 16:11 Procedure Staff Name Function Benson Davila MD Performing Physician Lisa Yao RT Scrub Catrachito Hess RN Nurse Munira Clark RT Monitor Indication Angina Procedure Data Cath Procedure Fluoroscopy Diagnostic fluoroscopy Total fluoroscopy Time: 2.4 time: 2.4 min min Diagnostic fluoroscopy Total fluoroscopy dose: 586 dose: 586 mGy mGy Contrast Material Contrast Material Type Amount (ml) Isovue 300 77 Entry Location Entry Primary Successful Side Size Upsize Upsize Entry Closure Succes sful Closure Location (Fr) 1 (Fr) 2 (Fr) Remarks Device Remarks Femoral Left 5 Fr 6 Fr Exoseal artery Short Estimated blood loss: 10 ml Diagnostic catheters Device Type Used For End Catheter Placement Cordis 5Fr Pigtail LV Angiography Catheter (MP) Cordis 5Fr JL 4.0 Procedure Catheter (MP) Cordis 5Fr 3DRC Catheter Procedure (MP) Procedure Complications No complications Procedure Medications Medication Administration Route Dosage Oxygen NC 2 l/min Lidocaine 2% added to field 20 Heparin Flush Bag added to field 2 bags (1000units/500ml NS) 0.9% NaCl I.V. bolus 100 ml/hr Pepcid I.V. 20 mg Refer to Anesthesia Notes for Sedation Medications Heparin Bolus I.V. 4000 units Plavix P.O. 75 mg Hemodynamics Rest HGB: 11.8 (g/dl) Heart Rate: 87 (bpm) Snapshots Pre Cath Intra NCS Post Cath Vital Signs Time Heart Resp SPO2 NIBP (mmHg) Rhythm Pain Sedation Rate (ipm) (%) Status Level (bpm) 15:21:10 87 14 97 147/80(122) NSR 0 (11) 10(A) , No pain 15:25:27 87 16 100 144/80(107) NSR 0 (11) 10(A) , No pain 15:29:39 84 17 100 141/82(125) NSR 0 (11) 10(A) , No pain 15:34:48 84 16 100 142/84(109) NSR 0 (11) 10(A) , No pain 15:38:58 86 17 100 140/83(109) NSR 0 (11) 10(A) , No pain 15:43:11 86 14 100 141/82(109) NSR 0 (11) 10(A) , No pain 15:47:21 88 16 100 133/82(111) NSR 0 (11) 10(A) , No pain 15:52:23 88 16 100 145/82(129) NSR 0 (11) 9(A) , No pain 15:56:36 88 17 99 140/90(118) NSR 0 (11) 9(A) , No pain 16:00:50 91 16 98 128/77(100) NSR 0 (11) 9(A) , No pain 16:05:04 88 14 100 123/68(101) NSR 0 (11) 9(A) , No pain 16:09:14 91 16 100 117/65(88) NSR 0 (11) 9(A) , No pain 16:13:45 89 19 100 134/73(95) NSR 0 (11) 10(A) , No pain Medications Time Medication Route Dose Verified Delivered Reason Notes Effectiveness by by 15:24:39 Oxygen NC 2 Benson Pageie used for l/min Giovanni Hess RN procedure 15:24:46 Lidocaine 2% added 20ml Benson Benson for local to vial Giovanni Davila MD anesthetic field 15:24:51 Heparin Flush added 2 Benson Benson used for Bag to bags Giovanni Davila MD procedure (1000units/500ml field NS) 15:25:01 0.9% NaCl I.V. 100 Benson Winston Per physician bolus ml/hr Giovanni Hess RN 15:50:01 Refer to Benson Winston Anesthesia Notes Giovanni Hess RN for Sedation Medications 15:56:31 Pepcid I.V. 20 mg Benson Winston used for Giovanni Hess RN procedure 16:04:37 Heparin Bolus I.V. 4000 Bensonmaricruz Pageie for verifi ed units Giovanni Hess RN anticoagulation with dr davila 16:15:52 Plavix P.O. 75 mg Benson Winston for Giovanni Hess RN antiplatelet therapy Procedure Log Time Note 14:40:42 Lisa Yao RT(R) sent for patient. Start room use. 15:08:09 Diagnostic Cath Status : Elective 15:08:28 Indication : Angina 15:08:43 Time tracking: Regular hours 15:08:47 Plan of Care:Hemodynamics will remain stable., Cardiac rhythm will remain stable., Comfort level will be maintained., Respiratory function will remain adequate., Patient/ family verbilizes understanding of procedure., Procedure tolerated without complication., Recovers from procedure without complications.. 15:09:03 Patient received from Med II to [facility] 2 Alert and oriented. Tansferred to table in Supine position. 15:09:04 Warm blankets applied, and yolanda hugger turned on for patient comfort. 15:09:04 Correct patient and procedure confirmed by team. 15::06 Signed procedure consent form obtained from patient. 15::07 ECG and BP/O2 sat monitors applied to patient. 15:20:08 Vital chart was started 15:20:09 Baseline sample Acquired. 15:20:12 Rhythm: sinus rhythm 15:20:14 Full Disclosure recording started 15:20:21 H&P Date Dictated: 02/02/2017 Within 30 days and on chart.. 15:20:23 Pre-procedure instructions explained to patient. 15:20:24 Pre-op teaching completed and patient verbalized understanding. 15:20:26 Family in patients room. 15:20:28 Patient NPO since Midnight. 15:21:05 Is the patient allergic to Iodine/contrast media? No. 15:21:11 Is patient on blood thinner?Yes 15:21:44 ACC The patient was administered the following blood thiners within the last 24 hours: ACCPlavix 15:21:48 Patient diabetic? Yes. 15:21:52 If diabetic: On Metformin? Yes 15:21:55 If on Metformin: Last Dose? 02/02/2017 15:22:06 Previous problem with sedation/anesthesia? No ? 15:22:09 Snore? Yes 15:22:15 Sleep apnea? No 15:22:23 Airway obstruction? Yes asthma 15:22:45 Dentures? No ? 15:22:54 Patient pain scale 0/10 ?. 15:23:03 IV patent on arrival in left hand with 0.9% [facility] at [facility]. 15:24:39 Oxygen 2 l/min NC was administered by Catrachito Hess RN; used for procedure; 15:24:46 Lidocaine 2% 20ml vial added to field was administered by Benson Davila MD; for local anesthetic; 15:24:51 Heparin Flush Bag (1000units/500ml NS) 2 bags added to field was administered by Benson Davila MD; used for procedure; 15:25:01 0.9% NaCl 100 ml/hr I.V. bolus was administered by Catrachito Hess RN; Per physician; 15:25:11 Lab Result : BUN 14 mg/dl 15:25:11 Lab Result : Creatinine Kinase 84 l 15:25:11 Lab Result : Creatinine 0.8 mg/dl 15:25:11 Lab Result : Troponin l 0.017 ng/ml 15:25:11 Lab Result : Hemoglobin 11.8 g/dl 15:25:15 Lab results completed and on chart. 15:25:18 Left groin area was prepped with chlora-prep and draped in sterile fashion 15:25:19 Alarms reviewed by R. N. 15:25:20 Sharps counted by scrub and verified by R.N. 15:25:21 Physician paged 15:29:43 IV Extension Set opened to sterile field. 15:30:44 Zero performed for pressure channel P1 15:36:50 Zero performed for pressure channel P1 15:50:01 Refer to Anesthesia Notes for Sedation Medications was administered by Catrachito Hess RN; ; 15:52:40 Physician arrived 15:52:41 --------ALL STOP TIME OUT------ 15:52:42 Final Timeout: patient, procedure, and site verified with staff and physician. All members of the team are in agreement. 15:52:45 Left groin site verified by team. 15:52:49 Physical assessment completed. ASA score P 2 - A patient with mild systemic disease as per Benson Davila MD. 15:52:54 Sedation plan: TIVA Propofol 15:53:11 Use device set Femoral Dx 15:53:12 Acist Syringe opened to sterile field. 15:53:13 Bag Decanter opened to sterile field. 15:53:13 Medline Cath Pack opened to sterile field. 15:53:14 Terumo 5Fr Orma Sheath opened to sterile field. 15:53:[address] 260cm J .035 wire opened to sterile field. 15:53:15 Acist Hand Control opened to sterile field. 15:53:16 Acist Manifold opened to sterile field. 15:53:16 Diagnostic Infinity 5Fr Multipack catheter opened to sterile field. 15:53:17 Tegaderm 4 x 4 opened to sterile field. 15:53:49 wendy singh present and monitoring patient for TIVA. 15:56:31 Pepcid 20 mg I.V. was administered by Catrachito Hess RN; used for procedure; 15:58:57 Procedure started. 15:59:03 Local anesthetic to left femerol artery with Lidocaine 2% by Benson Davila MD.INITIAL ACCESS ONLY 15:59:22 A 5 Fr sheath was inserted into the Left Femoral artery 16:01:28 J wire advanced. 16:01:42 A Cordis 5Fr Pigtail Catheter (MP) was advanced over the wire and used for LV Angiography. 16:01:55 EF : 55 % 16:01:57 Catheter removed. 16:02:09 A Cordis 5Fr JL 4.0 Catheter (MP) was advanced over the wire and used for Procedure. 16:02:47 LCA angiography performed. 16:04:10 Escalera PartyLineisper J 300cm 0.014 guide wire opened to sterile field. 16:04:11 Conductor BasixCompak Inflation Kit opened to sterile field. 16:04:12 Terumo 6Fr Orma Sheath opened to sterile field. 16:04:24 Catheter removed. 16:04:32 A Cordis 5Fr 3DRC Catheter (MP) was advanced over the wire and used for Procedure. 16:04:37 Heparin Bolus 4000 units I.V. was administered by Catrachito Hess RN; for anticoagulation; verified with dr davila 16:04:37 RCA angiography performed. 16:05:22 Cordis 6FR XBLAD 3.5 guide catheter opened to sterile field. 16:05:42 Sheath upsized to a 6 Fr Short. 16:06:18 ACC PCI Site: Diag1 has 80% stenosis. 16:06:29 6 Fr XBLAD 3.5 guide catheter was inserted over the wire 16:07:48 Inflation Number: 1 A Medtronic Integrity 2.5 X 12 stent was prepped and advanced across the 1st Diag. The stent was deployed at 13 ALEXANDRE for 0:10 (min:sec). 16:07:56 Cordis 6Fr Exoseal opened to sterile field. 16:08:01 Wire removed. 16:08:02 Guide catheter removed. 16:08:16 Sheath removed intact; hemostasis achieved with Exoseal to the Left Femoral artery. 16:08:21 Procedure ended.(Physican Out) 16:09:01 Fluoroscopy time 02.40 minutes. 16:09:06 Fluoroscopy dose: 586 mGy 16:09:06 Flurop Dose total: 586 16:09:13 Contrast amount:Isovue 300 77ml. 16:09:14 Sharps counted by scrub and verified by R.N. 16:09:19 Insertion/operative site no bleeding no hematoma. 16:10:16 Post-op/insertion site Left Femoral artery dressed using a 4 x 4 and Tegaderm. 16:10:23 Post left femerol artery:stable 16:10:25 Post Procedure Pulses reassessed and unchanged 16:10:31 Post-procedure physical assessment completed. ASA score P 2 - A patient with mild systemic disease as per Benson Davila MD. 16:10:34 Post procedure rhythm: unchanged. 16:10:37 Estimated blood loss: 10 ml 16:10:39 Post procedure instruction explained to patient.Patient verbalizes understanding. 16:10:45 Procedure type changed to Cath procedure, Diagnostic procedure, LHC, LHC w/Coronaries, PCI procedure, Coronary Stent Initial, Miscellaneous Procedures 16:10:46 Procedure and supply charges have been captured, reviewed, submitted and are correct. 16:11:09 Procedure Complication : No complications 16:11:11 Vital chart was stopped 16:11:13 See physician's report for complete and final results. 16:11:15 Report given to [facility]. 16:11:19 Patient transfered to [facility] with Bed. 16:11:21 Procedure ended. 16:11:21 Full Disclosure recording stopped 16:11:24 End room use (Document Last) 16:15:52 Plavix 75 mg P.O. was administered by Catrachito Hess RN; for antiplatelet therapy; Intervention Summary Intervention Notes Time ActionType Lesion and Equipment Action# Pressure Duration Attributes Used 16:07:48 Place stent 1st Diag Medtronic 1 13 00:10 Integrity 2.5 X 12 stent Device Usage Item Name Manufacture Quantity Catalog Hospital Part Current Minimal L ot# / Number Charge Number Stock Stock Serial# Code IV Hospira 1 [id number] 20567 837104 5 Extension Set Acist Acist 1 42889 751320 008228 736873 20 Syringe Medical Systems Inc Bag Microtek 1 2002S 319123 73051 351974 5 Decanter Medical Inc. Medline Cardinal 1 [id number] 065790 43792 049357 5 Cath Pack Health Terumo 5Fr Terumo 1 [id number] 607941 524827 088990 [address] 1 275673 078487 256215 685877 30 260cm J .035 wire Acist Hand Acist 1 61813 817930 339921 436708 5 Control Medical Systems Inc Acist Acist 1 14347 243291 965053 421149 5 [facility] Medical Systems Inc Diagnostic Cardinal 1 [id number] 367312 42655 239315 30 Infinity Health 5Fr Multipack catheter Tegaderm 4 3M 1 1626W 914516 811575 532012 5 x 4 Cordis 5Fr Cardinal 1 894606 5 Pigtail Health Catheter (MP) Cordis 5Fr Cardinal 1 004657 5 JL 4.0 Health Catheter (MP) Escalera Escalera 1 [id number] 789696 877962 182095 5 Whisper J Vascular 300cm 0.014 guide wire Merit Merit 1 [id number] 548012 071348 128059 15 [employer] Medical Inflation Kit Terumo 6Fr Terumo 1 SYQ061 417952 315752 522402 40 Orma Sheath Cordis 5Fr Cardinal 1 628914 5 3DRC Health Catheter (MP) Cordis 6FR Cardinal 1 [id number] 064713 107201 763250 10 XBLAD 3.5 Health guide catheter Medtronic Medtronic 1 [id number] 699576 397344 3 0 [id number] Integrity 2.5 X 12 stent Cordis 6Fr Cardinal 1 EX600 224012 497705 872803 10 [place] Signature Audit [place] Stage Time Signature Unsigned Intra-Procedure 02/03/2017 Munira Clark 4:17:00 PM RT(R) Signatures Monitor : Munira Clark Signature : RT Date : Time : [facility] [address], [place] [address]
[2017-02-02 21:40] LABS: BASOPHILS 0.4 % (0-2); EOSINOPHILS 2.2 % (0-7); HEMATOCRIT 35.8 % (42.0-54.0); HEMOGLOBIN 11.8 g/dL (13.5-17.5); IMMATURE GRANULOCYTES 0.4 % (0-5); LYMPHOCYTES 41.8 % (15-50); MCH 30.5 pg (26.0-34.0); MCV 92.5 fL (80.0-100.0); MEAN PLATELET VOLUME 9.2 fL (7.4-10.4); NEUTROPHILS 48.2 % (40-80); RBC 3.87 10x6/uL (4.20-6.10); RDW 13.1 % (11.5-14.5); WBC 11.6 10x3/uL (4.8-10.8)
[2017-02-02 21:44] LABS: PLATELET COUNT 293 10x3/uL (130-400)
[2017-02-02 21:58] LABS: ALBUMIN 3.8 g/dL (3.4-5.0); ALKALINE PHOSPHATASE 56 U/L (46-116); ALT (SGPT) 27 U/L (10-68); BILIRUBIN - TOTAL 0.21 mg/dL (0.2-1.3); CALC OSMOLALITY 268 mosm/kg (275-300); CALCIUM 9.6 mg/dL (8.5-10.1); CARBON DIOXIDE 28.4 mmol/L (21.0-32.0); CHLORIDE - SERUM 95 mmol/L (98-107); CREATININE - SERUM 0.8 mg/dL (0.6-1.3); POTASSIUM - SERUM 4.2 mmol/L (3.5-5.1); PROTEIN - SERUM 7.7 g/dL (6.4-8.2); SODIUM 134 mmol/L (136-145); UREA NITROGEN 14 mg/dL (7-18); eGFR NON AFRICAN AMERICAN > 90 mL/min (90-120)
[2017-02-02 22:02] LABS: GLUCOSE 101 mg/dL (74-106)
[2017-02-02 22:05] LABS: CHOL - HDL RATIO 3.4 ratio (2.3-4.9); CHOLESTEROL, TOTAL 134 mg/dL (0-200); CKMB 0.3 U/L (0.0-3.6); CREATINE KINASE 84 UL (21-232); HDL CHOLESTEROL 40 mg/dL (32-96); LDL CHOLESTEROL 60 mg/dL (0-100); LDL-HDL RATIO 1.5 ratio (1.5-3.5); MAGNESIUM - SERUM 1.3 mg/dL (1.8-2.4); PRO BNP 183 pg/mL (0-125); TRIGLYCERIDE 171 mg/dL (30-200)
[2017-02-02 22:06] LABS: TROPONIN-I < 0.017 ng/mL (0.000-0.060)
--- NOTE | 2017-02-02 23:40 | NUR ---
PT ARRIVES TO FLOOR VIA WC. UPON ARRIVAL, PT C/O PAIN TO HIS CHEST. PLACED ON TELE, NSR ON MONITOR - HR 70'S. NO ECTOPY NOTED. PT STATES NEEDING HIS HYDROCODONE FOR HIS HIP PAIN. EXPLAINED TO PT HE HAS MORPHINE ORDERED AND THAT THE PHYSICIAN WILL NOT BE ORDERING MULTIPLE NARCOTICS FOR PAIN. PT FALLING ASLEEP WHILE ASSESSING HIM. PT AWAKENED AFTER SEVERAL ATTEMPTS TO WAKE HIM. FLASHES EYES OPEN AND JUMPS UP IN BED, STATING "DO YOU HAVE MY PAIN MEDICINE YET". EXPLAINED TO PT THAT I AM ATTEMPTING TO ASSESS HIM AND HAVING DIFFICULTY WAKING HIM UP. PT STATES "I HEARD YOU, I WAS JUST HOPING YOU WERE GOING TO GO AWAY". BED ALARM SET FOR SAFETY AND PT ALLOWED TO REST. CALL LIGHT PLACED WITHIN REACH. WILL CONT TO MONITOR.
[2017-02-03 01:47] VITALS: Ht 172.7 cm; Wt 88.2 kg
--- NOTE | 2017-02-03 06:09 | NUR ---
PT C/O PAIN TO CHEST, RATES @ 10/10 ON PAIN SCALE. REPORTS IT IS A DULL PRESSURE. MORPHINE 10 MG IV GIVEN. WILL MONITOR.
[2017-02-03 08:00] VITALS: BP 130/79
--- NOTE | 2017-02-03 09:46 | NUR ---
CONSENT SIGNED FOR [facility]. UP AMBULATING [facility]. TELEMETRY SR. WILL CONT. PLAN OF CARE.
--- NOTE | 2017-02-03 10:18 | NUR ---
REFUSES SCDS. UP ADLIB.
[2017-02-03 12:00] VITALS: BP 125/73
--- NOTE | 2017-02-03 15:09 | NUR ---
PRE-OPS GIVEN. TO NISSAN SALES CONSULTANT BY BED.
--- NOTE | 2017-02-03 16:40 | NUR ---
BACK FROM [facility]. VS WNL. RIGHT GROIN STABLE WITHOUT BLEEDING OR HEMATOMA NOTED. WILL MONITOR.
--- NOTE | 2017-02-03 16:59 | HP ---
PATIENT: LETA CARBAJAL MEDICAL RECORD: [id number] ACCOUNT: [id number] LOCATION:D. D.0 : 65 ADMISSION DATE: 02/02/17 HISTORY AND PHYSICAL EXAMINATION ADDENDUM This is an addendum to the H and P done by Dr. Elizondo on Leta Carbajal. DATE OF SERVICE: 02/03/2017 Mr. Carbajal had a hip replacement which has had difficulty healing. He has had a dehiscence of the wound. He was previously on Eliquis. The Eliquis has been stopped, but ____ repeat operative repair of this. Due to the fact, we will proceed with transcatheter revascularization today with a stent, it only requires 30 days of Plavix to get him to the operative hip repair that he needs. TRANSINT:[id number] Voice Confirmation ID: [id number] DOCUMENT ID: [id number] JANELL PETTIT MD at 1659 CC: [id number] DICTATION DATE: 02/03/17 1011 REPLENISHMENT ASSOCIATE: 02/03/17 1113 ADM IN [facility] [address] [place] [address]
[2017-02-03 19:41] VITALS: BP 124/69
--- NOTE | 2017-02-03 20:19 | NUR ---
IV REMOVED, CATH INTACT UPON REMOVAL. DRESSING APPLIED. DISCHARGE TEACHING COMPLETED. VSS. PT DISCHARGED HOME. REFUSES WC TO FRONT DOOR. PT AMBULATES OFF FLOOR WITH SPOUSE TO PERSONAL AUTO.
--- NOTE | 2017-02-06 10:11 | DS ---
PATIENT:LETA CARBAJAL :65 MEDICAL RECORD: [id number] DISCHARGE SUMMARY ADMISSION DATE: 02/02/17 DISCHARGE DATE: 02/03/17 DIAGNOSES: 1. Angina. 2. Coronary artery disease. 3. Percutaneous transluminal coronary angioplasty stent left anterior descending diagonal this admission. 4. Hypertension. 5. Hyperlipidemia. HOSPITAL COURSE: Mr. Carbajal, who presents with unstable anginal symptomatology, found to have significant disease to the LAD diagonal and underwent successful PTCA stent of the LAD diagonal and discharged home with no change in his medications as he is already on aspirin and Plavix. Follow up with [facility] in 1 month. TRANSINT:[id number] Voice Confirmation ID: [id number] DOCUMENT ID: [id number] JANELL PETTIT MD at 1011 CC: [id number] DICTATION DATE: 02/03/17 1612 WHEEL AND PINION INSPECTOR: 02/04/17 1106 DIS IN 02/03/17 [id number] [place] [address]
--- NOTE | 2017-02-06 10:11 | OP ---
PATIENT NAME: LETA GARCIA MEDICAL RECORD: [id number] :65 LOCATION:D.M2 D.2120 ADMISSION DATE:02/02/17 SURGEON: JANELL PETTIT MD DATE OF OPERATION: 02/03/2017 PROCEDURES: 1. PTCA stent LAD diagonal. 2. Left heart catheterization. 3. Selective coronary angiography. 4. Left ventriculogram. INDICATION: Angina and coronary artery disease. PROCEDURE: After informed consent was obtained and after detailed explanation of risks, benefits as well as alternative therapies, the patient elected to proceed with angiogram and angioplasty. The right femoral area was prepped and draped in normal sterile fashion. The right femoral artery was cannulated via modified Seldinger technique with placement of 6-[place] sheath. All catheters exchanged through this sheath. FINDINGS: The left ventriculogram was performed in the standard 30-degree PEREZ view, reveals good cardiac wall motion throughout all segments. Overall ejection fraction estimated at 60%. SELECTIVE CORONARY ANGIOGRAPHY: 1. The left main has no significant angiographic disease. 2. The left anterior descending has previously placed stents in the LAD and diagonal. The diagonal; however, proximal to the stent has 80% stenosis. This is new from previous angiography. 3. The left circumflex has moderate irregularities, but no flow-limiting stenosis. Previously placed stents are widely patent. 4. The right coronary has previously placed stents. These are widely patent with no significant restenosis. No disease ____. PTCA STENT OF THE LAD DIAGONAL: The stent used was a 2.5 x 12 mm Integrity. Result was 0% residual stenosis. OVERALL IMPRESSION: Successful percutaneous transluminal coronary angioplasty stent of the left anterior descending diagonal going from 80% initial stenosis to 0% residual stenosis. TRANSINT:[id number] Voice Confirmation ID: [id number] DOCUMENT ID: [id number] JANELL PETTIT MD at 1011 CC: [id number] DICTATION DATE: 02/03/171613 CONTACT LENS TECHNICIAN: 02/04/17 0131 DIS IN 02/03/[address] [facility] [address] [place] [address]
== END 2017-02-03 20:20 | disposition home or self-care (01) ==
LOC: D.ER 21:14 → D.M2 23:55 → OBSVTIME 23:55 → D.M2 23:55
PROVIDERS: Emergency Medicine; ADMIT Internal Medicine Interventional Cardiology
DX: I25.119 Atherosclerotic heart disease of native coronary artery with unspecified angina pectoris (principal); I10 Essential (primary) hypertension; E78.5 Hyperlipidemia, unspecified

== ENCOUNTER 2017-03-24 17:26 | Emergency (ER) | payer MEDICAID ==
[2017-02-03 01:47] VITALS: BMI 29.5
== END 2017-03-24 20:00 | disposition home or self-care (01) ==
LOC: D.ER 17:26
DX: S70.01XA Contusion of right hip, initial encounter (principal); V43.53XA Car driver injured in collision with pick-up truck in traffic accident, initial encounter; Y93.89 Activity, other specified; Y92.410 Unspecified street and highway as the place of occurrence of the external cause; S16.1XXA Strain of muscle, fascia and tendon at neck level, initial encounter; I10 Essential (primary) hypertension; E11.9 Type 2 diabetes mellitus without complications; R51 Headache; M54.5 Low back pain; F17.200 Nicotine dependence, unspecified, uncomplicated

== ENCOUNTER 2017-09-14 00:06 | Emergency (ER) | payer MEDICAID ==
[2017-02-03 01:47] VITALS: BMI 29.5
[2017-09-14 00:38] LABS: HEMATOCRIT 37.5 % (42.0-54.0); HEMOGLOBIN 12.8 g/dL (13.5-17.5); MCH 30.5 pg (26.0-34.0); MCHC 34.1 g/dL (31.0-37.0); MCV 89.5 fL (80.0-100.0); MEAN PLATELET VOLUME 9.2 fL (7.4-10.4); NEUTROPHILS 45.1 % (40-80); RBC 4.19 10x6/uL (4.20-6.10); WBC 14.5 10x3/uL (4.8-10.8)
[2017-09-14 00:39] LABS: PLATELET COUNT 221 10x3/uL (130-400)
[2017-09-14 00:58] LABS: ALBUMIN 3.8 g/dL (3.4-5.0); ALKALINE PHOSPHATASE 55 U/L (46-116); ALT (SGPT) 26 U/L (10-68); CALC OSMOLALITY 285 mosm/kg (275-300); CALCIUM 8.9 mg/dL (8.5-10.1); CARBON DIOXIDE 30.5 mmol/L (21.0-32.0); CHLORIDE - SERUM 100 mmol/L (98-107); CREATININE - SERUM 0.8 mg/dL (0.6-1.3); POTASSIUM - SERUM 3.7 mmol/L (3.5-5.1); PROTEIN - SERUM 7.1 g/dL (6.4-8.2); SODIUM 140 mmol/L (136-145); UREA NITROGEN 21 mg/dL (7-18); eGFR NON AFRICAN AMERICAN > 90 mL/min (90-120)
[2017-09-14 00:59] LABS: GLUCOSE 172 mg/dL (74-106)
[2017-09-14 01:09] LABS: CHOL - HDL RATIO 3.1 ratio (2.3-4.9); CHOLESTEROL, TOTAL 128 mg/dL (0-200); CKMB 1.2 U/L (0.0-3.6); CREATINE KINASE 104 UL (21-232); HDL CHOLESTEROL 41 mg/dL (32-96); LDL CHOLESTEROL 42 mg/dL (0-100); TRIGLYCERIDE 229 mg/dL (30-200); TROPONIN-I < 0.017 ng/mL (0.000-0.060)
[2017-09-15] MEDS ORDERED: HYDROCODONE-APA1 TAB PO (11:20)
[2017-09-15] MEDS ORDERED: ROBAXIN-750750 MG PO (11:21)
[2017-09-15] MEDS ORDERED: OMNICEF300 MG PO (11:21)
[2017-09-15] MEDS ORDERED: LIPITOR40 MG PO (11:22)
== END 2017-09-14 01:50 | disposition home or self-care (01) ==
LOC: D.ER 00:06
PROVIDERS: Emergency Medicine
DX: R07.9 Chest pain, unspecified (principal); I25.10 Atherosclerotic heart disease of native coronary artery without angina pectoris

== ENCOUNTER 2017-09-15 09:12 | Outpatient (CLI) | payer MEDICAID ==
[~2017-09-15] VITALS: Ht 175.3 cm; Wt 97.3 kg
--- NOTE | ~2017-09-15 | HEMODYNAMI ---
PATIENT:LETA GARCIA JR MEDICAL RECORD: [id number] : 65 LOCATION:D.CAT ADMISSION DATE: 09/15/17 Generatedon:09/15/201713:49 Patient name: LETA GARCIA Patient #: [id number] SSN: : 1965 Date of study: 09/15/2017 Page: Of Hemodynamic Procedure Report Patient Data Patient Demographics Procedure consent was obtained First Name: LETA Gender: Male Last Name: RADHA Suffix: Jr Ruano Initial: ANGELINA : 1965 Patient #: [id number] Age: 52 year(s) Race: Additional ID: [id number] Contact details Address: [place] [address] State: [place] City: [place] Zip code: [address] Past Medical History Allergies Allergen Reaction Date Comments Reported Other allergy 10/03/2014 Steroids Admission Admission Data Admission Date: 09/15/2017 Admission Time: 9:12 Procedure Procedure Types Cath Procedure Diagnostic Procedure LHC LHC w/Coronaries FFR/IVUS Intra-Coronary IVUS Initial Intra-Coronary IVUS Additional PCI Procedure Coronary Stent Coronary Stent Initial x2 Miscellaneous Procedures Moderate Sedation up to 15 minutes Procedure Description Procedure Date Procedure Date: 09/15/2017 Procedure Start Time: 13:28 Procedure End Time: 13:49 Procedure Staff Name Function Benson Davila MD Performing Physician Genoveva Leal RT Scrub Helder Christensen RT Monitor Bolivar Francis RN Nurse Isaac Bailey MD Additional personnel Procedure Data Cath Procedure Fluoroscopy Diagnostic fluoroscopy Total fluoroscopy Time: 5.3 time: 5.3 min min Diagnostic fluoroscopy Total fluoroscopy dose: dose: 1039 mGy 1039 mGy Contrast Material Contrast Material Type Amount (ml) Isovue 300 109 Entry Location Entry Primary Successful Side Size Upsize Upsize Entry Closure Succes sful Closure Location (Fr) 1 (Fr) 2 (Fr) Remarks Device Remarks Femoral Right 5 Fr 6 Fr Exoseal artery Short Estimated blood loss: 10 ml Diagnostic catheters Device Type Used For End Catheter Placement MULTIPACK Pigtail 5 Fr Procedure catheter MULTIPACK JL 4.0 5Fr Procedure catheter MULTIPACK 3DRC 5Fr Procedure catheter Procedure Complications No complications Procedure Medications Medication Administration Route Dosage 0.9% NaCl I.V. 100 ml/hr Oxygen NC 2 l/min Heparin Flush Bag added to field 2 bags (1000units/500ml NS) Lidocaine 2% added to field 20 Refer to Anesthesia Notes for Sedation Medications Heparin Bolus I.V. 4000 units Hemodynamics Rest Heart Rate: 62 (bpm) Snapshots Pre Cath Intra NCS Post Cath Vital Signs Time Heart Resp SPO2 etCO2 NIBP (mmHg) Rhythm Pain Sedation Rate (ipm) (%) (mmHg) Status Level (bpm) 13:15:14 57 16 100 43 154/76(118) NSR 0 (11) 10(A) , No pain 13:19:58 61 16 100 43.8 144/83(119) NSR 0 (11) 10(A) , No pain 13:24:43 64 12 98 43 127/68(94) NSR 0 (11) 8(A) , No pain 13:29:54 63 13 100 40 122/78(95) NSR 0 (11) 8(A) , No pain 13:41:08 67 11 100 43 118/69(90) NSR 0 (11) 9(A) , No pain 13:46:26 65 11 98 42.2 138/78(110) NSR 0 (11) 10(A) , No pain Medications Time Medication Route Dose Verified Delivered Reason Notes Effectiveness by by 13:16:09 0.9% NaCl I.V. 100 Bolivar Bolivar Per physician ml/hr Penny Francis RN RN 13:16:20 Oxygen NC 2 Bolivar Bolivar Per physician l/min Penny Francis RN RN 13:16:38 Heparin Flush added 2 Bolivar Bolivar used for Bag to bags Penny Francis procedure (1000units/500ml RN RN NS) 13:16:48 Lidocaine 2% added 20ml Bolivar Bolivar for local to vial Penny Francis anesthetic RN RN 13:20:25 Refer to Bolivar Bolivar for sedation Anesthesia Notes Penny Francis for Sedation RN RN Medications 13:35:51 Heparin Bolus I.V. 4000 Bolivar Bolivar for units Penny Francis anticoagulation RN concrete craftsman Log Time Note 12:50:56 Helder Christensen RT(R) sent for patient. Start room use. 12:53:25 Time tracking: Regular hours 12:53:29 Plan of Care:Hemodynamics will remain stable., Cardiac rhythm will remain stable., Comfort level will be maintained., Respiratory function will remain adequate., Patient/ family verbilizes understanding of procedure., Procedure tolerated without complication., Recovers from procedure without complications.. 13:07:10 Patient received from Pre/Post Procedure Room to CCL 1 Alert and oriented. Tansferred to table in Supine position. 13:07:11 Warm blankets applied, and yolanda hugger turned on for patient comfort. 13:07:11 Correct patient and procedure confirmed by team. 13:07:13 Signed procedure consent form obtained from patient. 13:07:14 ECG and BP/O2 sat monitors applied to patient. 13:07:15 Full Disclosure recording started 13:13:27 Vital chart was started 13:16:08 Rhythm: sinus rhythm 13:16:09 0.9% NaCl 100 ml/hr I.V. was administered by Bolivar Francis RN; Per physician; 13:16:20 Oxygen 2 l/min NC was administered by Bolivar Francis RN; Per physician; 13:16:23 H&P Date Dictated: 09/14/2017 Within 30 days and on chart., H&P Addendum completed by physician on day of procedure. (MUST COMPLETE FOR ALL OUTPATIENTS). 13:16:25 Pre-procedure instructions explained to patient. 13:16:25 Pre-op teaching completed and patient verbalized understanding. 13:16:30 Family in patients room. 13:16:31 Patient NPO since Midnight. 13:16:33 Is the patient allergic to Iodine/contrast media? No. 13:16:34 Is patient on blood thinner?Yes 13:16:36 ACC The patient was administered the following blood thiners within the last 24 hours: ACCPlavix 13:16:38 Heparin Flush Bag (1000units/500ml NS) 2 bags added to field was administered by Bolivar Francis RN; used for procedure; 13:16:48 Lidocaine 2% 20ml vial added to field was administered by Bolivar Francis RN; for local anesthetic; 13:17:07 Patient diabetic? Yes. 13:17:08 If diabetic: On Metformin? Yes 13:17:11 If on Metformin: Last Dose? 09/14/2017 13:17:14 Previous problem with sedation/anesthesia? No ? 13:17:15 Snore? Yes 13:17:16 Sleep apnea? No 13:17:17 Deviated septum? No 13:17:18 Opens mouth fully? Yes 13:17:19 Sticks out tongue? Yes 13:17:21 Airway obstruction? No ? 13:17:24 Dentures? Yes IN 13:17:28 Pre procedure: right dorsailis pedis pulse 1+ Palpable, but thready & weak; easily obliterated 13:17:30 Unable to palpate radial pulse. 13:17:31 Patient pain scale 0/10 ?. 13:17:40 IV patent on arrival in right antecubital with 0.9% NaCl at [facility]. 13:17:42 Lab results completed and on chart. 13:17:44 Right groin area was prepped with chlora-prep and draped in sterile fashion 13:17:46 Alarms reviewed by R. N. 13:17:46 Sharps counted by scrub and verified by R.N. 13:17:54 Use device set Femoral Dx 13:17:56 ACIST Manifold (26210) opened to sterile field. 13:17:57 Tegaderm 4 x 4 (1626W) opened to sterile field. 13:17:58 ACIST Hand Control (09605) opened to sterile field. 13:18:00 ACIST Syringe (34214) opened to sterile field. 13:18:00 Bag Decanter (2002S) opened to sterile field. 13:18:01 Medline Cath Pack ([id number]) opened to sterile field. 13:18:01 SHEATH 5FR [place] (SLD538) opened to sterile field. 13:18:02 DIAGNOSTIC WIRE .035 260cm J wire (485043) opened to sterile field. 13:18:03 DIAGNOSTIC Multipack 5Fr catheter set (JD2941) opened to sterile field. 13:18:03 PERCUTANEOUS ENTRY 19GA needle opened to sterile field. 13:20:25 Refer to Anesthesia Notes for Sedation Medications was administered by Bolivar Francis RN; for sedation; 13:22:33 Isaac Bailey MD present and monitoring patient for TIVA. 13:23:53 --------ALL STOP TIME OUT------ 13:23:54 Final Timeout: patient, procedure, and site verified with staff and physician. All members of the team are in agreement. 13:24:34 Right groin site verified by team. 13:24:43 Physical assessment completed. ASA score P 3 - A patient with severe systemic disease as per Bneson Davila MD. 13:24:48 Sedation plan: TIVA Medication:Propofol 13:24:59 Zero performed for pressure channel P1 13:28:42 Procedure started. 13:28:46 Local anesthetic to right femoral artery with Lidocaine 2% by Benson Davila MD.INITIAL ACCESS ONLY 13:29:36 A 5 Fr sheath was inserted into the Right Femoral artery 13:30:01 A MULTIPACK Pigtail 5 Fr catheter was advanced over the wire and used for Procedure. 13:30:23 LV angiography performed. 13:30:26 LV gram done using PEREZ 13:30:32 EF : 60 % 13:30:36 Injector settings: Ml/sec: 10, Volume: 20, 13:30:48 Catheter removed. 13:31:03 A MULTIPACK JL 4.0 5Fr catheter was advanced over the wire and used for Procedure. 13:31:32 LCA angiography performed. 13:31:57 Catheter removed. 13:32:02 A MULTIPACK 3DRC 5Fr catheter was advanced over the wire and used for Procedure. 13:32:05 Use device set [facility] PCI 13:32:20 Baseline sample Acquired. 13:32:38 RCA angiography performed. 13:32:42 Catheter removed. 13:32:47 INFLATOR Merit BasixCompak (ZE9866) opened to sterile field. 13:33:05 [place] IVUS Catheter (73354P) opened to sterile field. 13:33:16 GUIDE 6FR XBLAD 3.5 catheter (64064426) opened to sterile field. 13:33:19 GRAPHIX 182cm guide wire ([id number]) opened to sterile field. 13:33:20 SHEATH 6FR [place] (SQT302) opened to sterile field. 13:33:33 Sheath upsized to a 6 Fr Short. 13:34:27 6 Fr XBLAD 3.5 guide catheter was inserted over the wire 13:35:11 Choice PT XS wire advanced. 13:35:33 Wire advanced across lesion. 13:35:36 IVUS catheter advanced over wire. 13:35:51 Heparin Bolus 4000 units I.V. was administered by Bolivar Francis RN; for anticoagulation; 13:36:36 IVUS pass to LMCA lesion performed. 13:36:38 IVUS pass to Circ lesion performed. 13:37:35 Wire redirected to LAD. 13:37:56 IVUS pass to LAD lesion performed. 13:37:59 IVUS catheter removed over wire. 13:40:02 Inflation Number: 1 A ZAID RX 3.5 x 30 stent ([id number]) was prepped and advanced across the Prox LAD. The stent was deployed at 17 ALEXANDRE for 0:10 (min:sec). 13:40:45 Inflation number: 2 The stent balloon was then re-inflated across the Prox LAD to 13 ALEXANDRE for 0:10 (min:sec). 13:41:35 Wire redirected to CIRC. 13:41:40 Stent catheter was removed intact over wire. 13:42:33 Inflation Number: 1 A ZAID RX 3.5 x 22 stent ([id number]) was prepped and advanced across the Prox CX. The stent was deployed at 21 ALEXANDRE for 0:10 (min:sec). 13:43:10 EXOSEAL 6Fr (EX600) opened to sterile field. 13:43:15 Stent catheter was removed intact over wire. 13:43:35 Wire removed. 13:43:36 Guide catheter removed. 13:43:44 Sheath removed intact; hemostasis achieved with Exoseal to the Right Femoral artery. 13:43:46 Procedure ended.(Physican Out) 13:47:36 Fluoroscopy time 05.30 minutes. 13:47:41 Fluoroscopy dose: 1039 mGy 13:47:41 Flurop Dose total: 1039 13:47:45 Contrast amount:Isovue 300 109ml. 13:47:46 Sharps counted by scrub and verified by R.N. 13:47:48 Insertion/operative site no bleeding no hematoma. 13:47:52 Post-op/insertion site Right Femoral artery dressed using a 4 x 4 and Tegaderm. 13:47:53 Post Procedure Pulses reassessed and unchanged 13:47:56 Post-procedure physical assessment completed. ASA score P 2 - A patient with mild systemic disease as per Benson Davila MD. 13:47:58 Post procedure rhythm: unchanged. 13:48:01 Estimated blood loss: 10 ml 13:48:03 Post procedure instruction explained to patient.Patient verbalizes understanding. 13:48:03 Patient needs reinforcement of post procedure teaching. 13:48:22 Procedure type changed to Cath procedure, Diagnostic procedure, LHC, LHC w/Coronaries, FFR/IVUS, Intra-Coronary IVUS Initial, Intra-Coronary IVUS Additional, PCI procedure, Coronary Stent, Coronary Stent Initial x2, Miscellaneous Procedures, Moderate Sedation up to 15 minutes 13:48:24 Procedure and supply charges have been captured, reviewed, submitted and are correct. 13:48:27 Procedure Complication : No complications 13:49:08 Vital chart was stopped 13:49:09 See physician's report for complete and final results. 13:49:11 Report given to Pre/Post Procedure Room. 13:49:16 Patient transfered to Pre/Post Procedure Room with Stretcher. 13:49:20 Procedure ended. 13:49:20 Full Disclosure recording stopped 13:49:24 End room use (Document Last) Intervention Summary Intervention Notes Time ActionType Lesion and Equipment Used Action# Pressure Duration Attributes 13:40:02 Place stent Prox LAD ZAID RX 3.5 x 1 17 00:10 30 stent ([id number]) 13:40:45 Reinflate Prox LAD ZAID RX 3.5 x 2 13 00:10 stent 30 stent balloon ([id number]) 13:42:33 Place stent Prox CX ZAID RX 3.5 x 1 21 00:10 22 stent ([id number]) Device Usage Item Name Manufacture Quantity Catalog Number Hospital Part Current M inimal Lot# / Charge Number Stock Stock Serial# Code ACIST Manifold Acist 1 33759 761192 631596 209120 5 (03831) Medical Systems Inc Tegaderm 4 x 4 3M 1 1626W 473429 455808 143332 5 (1626W) ACIST Hand Acist 1 48767 553767 572116 377417 5 Control Medical (67143) Systems Inc ACIST Syringe Acist 1 94924 688030 909439 244767 2 0 (08003) Medical Systems Inc Bag Decanter Microtek 1 848639 86598 144590 5 () Medical Inc. Medline Cath Cardinal 1 [id number] 699445 00330 159013 5 Pack Health ([id number]) SHEATH 5FR Terumo 1 XSC031 661879 226384 264514 4 0 [place] (WQA733) DIAGNOSTIC St Rd 1 059611 633630 281952 011139 3 0 WIRE .035 260cm J wire (368761) DIAGNOSTIC Cardinal 1 MG1033 509414 99353 401939 3 0 Multipack 5Fr Health catheter set (EV8181) PERCUTANEOUS Cook Medical 1 Q53806 211230 463066 5 ENTRY 19GA needle MULTIPACK Cardinal 1 136862 5 Pigtail 5 Fr Health catheter MULTIPACK JL Cardinal 1 427618 5 4.0 5Fr Health catheter MULTIPACK 3DRC Cardinal 1 276355 5 5Fr catheter Health INFLATOR [facility] 1 KP2828 063472 525461 150117 1 5 [employer] (FS1642) [place] 1 15640O 468690 202812 807166 8 Native [place] IVUS Catheter (39695N) GUIDE 6FR Cardinal 1 [id number] 209375 845538 269559 1 0 XBLAD 3.5 Health catheter (89815219) GRAPHIX 182cm [place] 1 [id number] 627497 807384 693649 5 guide wire Scientific ([id number]) SHEATH 6FR Terumo 1 FPB099 818928 541920 524689 4 0 [place] (MMO401) ZAID RX 3.5 x Medtronic 1 [id number] 922672 5436921 167826 5 [id number] 30 stent ([id number]) ZAID RX 3.5 x Medtronic 1 [id number] 011166 7150950 423857 5 [id number] 22 stent ([id number]) EXOSEAL 6Fr Cardinal 1 EX600 495099 334014 050768 1 0 (EX600) Health Signature Audit [place] Stage Time Signature Unsigned Intra-Procedure 09/15/2017 Helder Christensen 1:49:42 PM RT(R) Signatures Monitor : Helder Christensen RT Signature : Date : Time : [id number] [place] [address]
--- NOTE | ~2017-09-15 | OP ---
PATIENT NAME: LETA GARCIA JR MEDICAL RECORD: [id number] :65 LOCATION:D.CAT ADMISSION DATE: SURGEON: JANELL PETTIT MD DATE OF OPERATION: 09/15/2017 PROCEDURES: 1. PTCA stent, LAD. 2. PTCA stent, left circumflex. 3. Intravascular ultrasound of LAD. 4. Intravascular ultrasound of left circumflex. 5. Left heart catheterization. 6. Selective coronary angiography. 7. Left ventriculogram. INDICATION: Angina and coronary artery disease. PROCEDURE IN DETAIL: After informed consent was obtained and after detailed explanation of risks, benefits as well as alternative therapies, the patient elected to proceed with angiogram and angioplasty. The right femoral area was prepped and draped in normal sterile fashion. The right femoral artery was cannulated via modified Seldinger technique with placement of 6-[place] sheath. All catheters exchanged through this sheath. FINDINGS: Left ventriculogram was performed in standard 30-degree PEREZ view reveals good cardiac wall motion throughout all segments. Overall ejection fraction estimated at 60%. SELECTIVE CORONARY ANGIOGRAPHY: 1. Left main showed no significant angiographic disease. 2. Left anterior descending has 80% stenosis proximally confirmed by intravascular ultrasound. 3. The left circumflex has 80% stenosis proximally confirmed by intravascular ultrasound. 4. Right coronary artery has gjxc-fp-fiyrbdwy irregularities, but no flow-limiting stenosis. Previously placed stent in the right coronary artery is widely patent. PTCA STENT OF THE LAD AND CIRCUMFLEX: The LAD was addressed with a 3.5 x 30 and the circumflex 3.5 x 22, both Zack stents. Result was 0% residual. OVERALL IMPRESSION: Successful percutaneous transluminal coronary angioplasty stent of the left anterior descending and circumflex, both going from 80% initial stenosis to 0% residual. TRANSINT:[id number] Voice Confirmation ID: [id number] DOCUMENT ID: [id number] JANELL PETTIT MD at 1759 CC: [id number] DICTATION DATE: 09/15/17 1347 CHARGING PLUG PLACER: 09/15/17 1407 DEP CLI 09/15/17 [place] [address]
[2017-09-15] MEDS ORDERED: HYDROCODONE-APA1 TAB PO (11:20)
[2017-09-15] MEDS ORDERED: OMNICEF300 MG PO (11:21)
[2017-09-15] MEDS ORDERED: ROBAXIN-750750 MG PO (11:21)
[2017-09-15] MEDS ORDERED: LIPITOR40 MG PO (11:22)
[2017-09-15 11:35] VITALS: BP 106/66; Ht 175.3 cm; Wt 97.3 kg
[2017-09-15 11:42] LABS: BASOPHILS 0.4 % (0-2); EOSINOPHILS 3.3 % (0-7); HEMATOCRIT 38.8 % (42.0-54.0); HEMOGLOBIN 12.9 g/dL (13.5-17.5); IMMATURE GRANULOCYTES 1.2 % (0-5); MCH 30.6 pg (26.0-34.0); MCHC 33.2 g/dL (31.0-37.0); MCV 91.9 fL (80.0-100.0); MEAN PLATELET VOLUME 9.9 fL (7.4-10.4); MONOCYTES 7.7 % (2-11); NEUTROPHILS 49.4 % (40-80); PLATELET COUNT 233 10x3/uL (130-400); RBC 4.22 10x6/uL (4.20-6.10); WBC 12.8 10x3/uL (4.8-10.8)
[2017-09-15 11:49] LABS: CALC OSMOLALITY 282 mosm/kg (275-300); CALCIUM 9.1 mg/dL (8.5-10.1); CARBON DIOXIDE 27.9 mmol/L (21.0-32.0); CHLORIDE - SERUM 101 mmol/L (98-107); CREATININE - SERUM 0.8 mg/dL (0.6-1.3); GLUCOSE 170 mg/dL (74-106); POTASSIUM - SERUM 4.5 mmol/L (3.5-5.1); SODIUM 138 mmol/L (136-145); UREA NITROGEN 22 mg/dL (7-18); eGFR NON AFRICAN AMERICAN > 90 mL/min (90-120)
== END 2017-09-15 17:53 | disposition home or self-care (01) ==
LOC: D.CATH 09:12
PROVIDERS: Internal Medicine Interventional Cardiology
DX: I25.119 Atherosclerotic heart disease of native coronary artery with unspecified angina pectoris (principal); E11.9 Type 2 diabetes mellitus without complications; I10 Essential (primary) hypertension; E78.5 Hyperlipidemia, unspecified; F17.200 Nicotine dependence, unspecified, uncomplicated; Z01.812 Encounter for preprocedural laboratory examination

== ENCOUNTER → 2017-10-23 09:28 | Outpatient (CLI) | payer MEDICAID ==
[2017-09-15 11:35] VITALS: BMI 31.6
[~2017-10-23 09:28] MED LIST changes: +LIPITOR40 MG PO; +OMNICEF300 MG PO; +ROBAXIN-750750 MG PO
== END | disposition home or self-care (01) ==
LOC: D.NM 09:28
DX: M25.551 Pain in right hip (principal)

== ENCOUNTER → 2017-11-13 13:08 | Outpatient (CLI) | payer MEDICAID ==
[2017-09-15 11:35] VITALS: BMI 31.6
== END | disposition home or self-care (01) ==
LOC: D.MRI 11-08 09:07
DX: M54.16 Radiculopathy, lumbar region (principal)

== ENCOUNTER → 2017-11-24 14:40 | Outpatient (CLI) | payer MEDICAID ==
[2017-09-15 11:35] VITALS: BMI 31.6
== END | disposition home or self-care (01) ==
LOC: D.CT 14:40
DX: I73.9 Peripheral vascular disease, unspecified (principal)

== ENCOUNTER → 2017-12-15 15:09 | Outpatient (CLI) | payer MEDICAID ==
[2017-09-15 11:35] VITALS: BMI 31.6
== END | disposition home or self-care (01) ==
LOC: D.CT 15:09
DX: I65.23 Occlusion and stenosis of bilateral carotid arteries (principal)

== ENCOUNTER 2018-01-19 10:11 | Outpatient (CLI) | payer MEDICAID ==
[~2018-01-19] VITALS: Ht 172.7 cm; Wt 97.7 kg
--- NOTE | ~2018-01-19 | OP ---
PATIENT NAME: LETA GARCIA JR MEDICAL RECORD: [id number] :65 LOCATION:D.CAT ADMISSION DATE: SURGEON: JANELL PETTIT MD DATE OF OPERATION: 01/19/2018 PROCEDURE: Four-vessel carotid and vertebral angiography. INDICATION: Carotid vascular disease, dizziness, and near syncope. DESCRIPTION OF PROCEDURE: After informed consent was obtained and after a detailed explanation of risks, benefits as well as alternative therapies, the patient elected to proceed with angiogram and 4-vessel angiography. FINDINGS: There was subselection of each subclavian as well as the left carotid. Right side common internal and external carotids have mild plaquing, none greater than 20%, no flow-limiting stenosis. Vertebral artery has no significant disease. LEFT SYSTEM: The common internal and external carotids have mild plaquing, none greater than 20%, no flow-limiting stenosis. Vertebral artery has no significant disease. OVERALL IMPRESSION: Minimal carotid vascular disease is present. No flow-limiting stenosis. Symptomatology is not secondary to carotid vascular insufficiency. TRANSINT:[id number] Voice Confirmation ID: [id number] DOCUMENT ID: [id number] JANELL PETTIT MD at 1403 CC: [id number] DICTATION DATE: 01/19/18 1624 ASSOCIATE PROFESSOR OF ENGLISH: 01/19/18 1641 DEP CLI 01/19/[address] [address]
--- NOTE | ~2018-01-19 | HEMODYNAMI ---
PATIENT:LETA GARCIA JR MEDICAL RECORD: [id number] : 65 [facility] DATE: 01/19/18 Generatedon:01/19/201816:34 Patient name: LETA GARCIA Patient #: [id number] SSN: : 1965 Date of study: 01/19/2018 Page: Of Hemodynamic Procedure Report Patient Data Patient Demographics Procedure consent was obtained First Name: LETA Gender: Male Last Name: RADHA Suffix: Jr Ruano Initial: LUC : 1965 Patient #: [id number] Age: 52 year(s) Race: Additional ID: [id number] Contact details Address: [place] [address] State: [place] City: [place] Zip code: [address] Past Medical History Allergies: No known allergies Admission Admission Data Admission Date: 01/19/2018 Admission Time: 10:11 Height (in.): 5.8 BSA: 0.35 (m2) Height (cm.): 14.73 BMI: 4472.56 (kg/m2) Weight (lbs.): 214 Weight (kg.): 97.07 Lab Results Lab Result Date: 01/19/2018 Lab Result Time: 0:00 Biochemistry Name Units Result Min Max BUN mg/dl 13 --(--*-)-- 7 18 Creatinine mg/dl 0.8 --(-*--)-- 0.6 1.3 CBC Name Units Result Min Max Hemoglobin g/dl 12.3 *-(----)-- 13.5 17.5 Procedure Procedure Types Cath Procedure Diagnostic Procedure C [facility] w/Coronaries PCI Procedure Coronary Stent Coronary Stent Initial Coronary Stent Additional Peripheral Cath Diagnostic Procedure Cath Peripheral Tionr-Aybnjwt-Hex-Off Four Vessel Arteriogram Procedure Description Procedure Date Procedure Date: 01/19/2018 Procedure Start Time: 15:58 Procedure End Time: 16:22 Procedure Staff Name Function Benson Davila MD Performing Physician Yareli Lau RT Monitor Jarrod Stark RT Scrub Catrachito Hess RN Nurse Luc Alvarado Additional personnel Procedure Data Cath Procedure Fluoroscopy Diagnostic fluoroscopy Total fluoroscopy Time: 6 time: 6 min min Diagnostic fluoroscopy Total fluoroscopy dose: dose: 1086 mGy 1086 mGy Contrast Material Contrast Material Type Amount (ml) Isovue 300 160 Entry Location Entry Primary Successful Side Size Upsize Upsize Entry Closure Succes sful Closure Location (Fr) 1 (Fr) 2 (Fr) Remarks Device Remarks Femoral Left 5 Fr 6 Fr Exoseal artery Short Estimated blood loss: 10 ml Diagnostic catheters Device Type Used For End Catheter Placement MULTIPACK Pigtail 5 Fr Procedure catheter MULTIPACK JL 4.0 5Fr Procedure catheter MULTIPACK 3DRC 5Fr Procedure catheter Procedure Complications No complications Procedure Medications Medication Administration Route Dosage Oxygen NC 2 l/min Lidocaine 2% added to field 20 Heparin Flush Bag added to field 2 bags (1000units/500ml NS) 0.9% NaCl I.V. 100 ml/hr Refer to Anesthesia Notes for Sedation Medications Heparin Bolus I.V. 4000 units Hemodynamics Rest BSA: 0.35 (m2) HGB: 12.3 (g/dl) O2 Consumption: Estimated: 40.67 (ml/min) O2 Con sumption indexed: Estimated:116.2 (ml/min/m) Heart Rate: 62 (bpm) Snapshots Pre Cath Intra NCS Post Cath Vital Signs Time Heart Resp SPO2 etCO2 NIBP (mmHg) Rhythm Pain Sedation Rate (ipm) (%) (mmHg) Status Level (bpm) 15:00:46 65 12 0 172/94(143) NSR 0 (11) 10(A) , No pain 15:05:45 60 11 100 38 Measuring NSR 0 (11) 10(A) , No pain 15:09:26 61 12 100 40.3 148/87(105) NSR 0 (11) 10(A) , No pain 15:14:51 57 14 100 26.8 150/88(119) NSR 0 (11) 10(A) , No pain 15:20:25 58 13 99 31 140/84(102) NSR 0 (11) 10(A) , No pain 15:25:12 59 14 100 30.6 146/84(118) NSR 0 (11) 10(A) , No pain 15:29:59 67 13 100 39.5 105/75(84) NSR 0 (11) 10(A) , No pain 15:35:18 61 14 96 46.2 135/72(100) NSR 0 (11) 9(A) , No pain 15:40:05 59 15 98 30 122/62(85) NSR 0 (11) 9(A) , No pain 15:44:48 58 14 96 34.2 108/60(78) NSR 0 (11) 9(A) , No pain 15:49:29 58 14 94 32.1 103/57(73) NSR 0 (11) 9(A) , No pain 15:54:09 57 13 94 28.9 107/56(72) NSR 0 (11) 9(A) , No pain 15:58:50 59 19 94 29.8 99/56(76) NSR 0 (11) 9(A) , No pain 16:03:28 59 15 93 37.3 95/53(69) NSR 0 (11) 9(A) , No pain 16:08:09 62 15 94 23.1 96/48(66) NSR 0 (11) 9(A) , No pain 16:12:49 62 15 95 26.1 95/52(67) NSR 0 (11) 9(A) , No pain 16:17:30 63 14 96 26.8 101/54(71) NSR 0 (11) 9(A) , No pain 16:22:11 62 17 98 38.7 105/55(76) NSR 0 (11) 9(A) , No pain 16:25:27 61 17 99 37.2 101/53(68) NSR 0 (11) 9(A) , No pain 16:28:09 60 18 99 36.5 99/52(73) NSR 0 (11) 9(A) , No pain 16:32:44 64 16 99 41 135/71(106) NSR 0 (11) 10(A) , No pain Medications Time Medication Route Dose Verified Delivered Reason Notes Effectiveness by by 14:59:14 Oxygen NC 2 Benson Buffie used for l/min Giovanni Hess RN procedure 14:59:20 Lidocaine 2% added 20ml Benson Buffie used for to vial Giovanni Hess RN procedure field 14:59:26 Heparin Flush added 2 Benson Buffie used for Bag to bags Tauth MD Hess electrode turner and finisher (1000units/500ml field NS) 14:59:34 0.9% NaCl I.V. 100 Benson Winston Per physician ml/hr Giovanni Hess RN 15:14:15 Refer to Benson Winston Anesthesia Notes Giovanni Hess RN for Sedation Medications 16:06:27 Heparin Bolus I.V. 4000 Benson Winston for units Giovanni Hess RN anticoagulation Procedure Log Time Note 14:41:12 Time tracking: Regular hours (M-F 7:00 - 5:00) 14:41:15 Plan of Care:Hemodynamics will remain stable., Cardiac rhythm will remain stable., Comfort level will be maintained., Respiratory function will remain adequate., Patient/ family verbilizes understanding of procedure., Procedure tolerated without complication., Recovers from procedure without complications.. 14:41:18 Jarrod Stark RT(R) sent for patient. Start room use. 14:41:20 Signed procedure consent form obtained from patient. 14:41:31 H&P Date Dictated: 01/18/2018 Within 30 days and on chart., H&P Addendum completed by physician on day of procedure. (MUST COMPLETE FOR ALL OUTPATIENTS). 14:41:39 Patient allergic to No known allergies 14:41:51 Patient Height : 5.8 inches 14:41:54 Patient Weight : 214 lbs 14:44:51 Lab Result : BUN 13 mg/dl 14:44:51 Lab Result : Hemoglobin 12.3 g/dl 14:44:51 Lab Result : Creatinine 0.8 mg/dl 14:47:54 Patient received from Pre/Post Procedure Room to CCL 1 Alert and oriented. Tansferred to table in Supine position. 14:47:56 Warm blankets applied, and yolanda hugger turned on for patient comfort. 14:47:56 Correct patient and procedure confirmed by team. 14:47:57 ECG and BP/O2 sat monitors applied to patient. 14:58:47 Baseline sample Acquired. 14:58:47 Vital chart was started 14:58:58 Rhythm: sinus rhythm 14:59:00 Full Disclosure recording started 14:59:01 Pre-procedure instructions explained to patient. 14:59:02 Pre-op teaching completed and patient verbalized understanding. 14:59:14 Oxygen 2 l/min NC was administered by Buffie Hess RN; used for procedure; 14:59:18 Family unavailable. 14:59:20 Lidocaine 2% 20ml vial added to field was administered by Catrachito Hess RN; used for procedure; 14:59:26 Heparin Flush Bag (1000units/500ml NS) 2 bags added to field was administered by Catrachito Hess RN; used for procedure; 14:59:34 0.9% NaCl 100 ml/hr I.V. was administered by Catrachito Hess RN; Per physician; 15:02:53 Patient NPO since Midnight. 15:02:56 Is the patient allergic to Iodine/contrast media? No. 15:02:59 Is patient on blood thinner?Yes 15:03:02 ACC The patient was administered the following blood thiners within the last 24 hours: ACCPlavix 15:03:11 Patient diabetic? Yes. 15:03:12 If diabetic: On Metformin? Yes 15:03:22 If on Metformin: Last Dose? 01/17/2018 15:03:44 Previous problem with sedation/anesthesia? No ? 15:04:03 Snore? Yes 15:04:09 Sleep apnea? No 15:04:09 Deviated septum? No 15:04:10 Opens mouth fully? Yes 15:04:11 Sticks out tongue? Yes 15:04:16 Airway obstruction? Yes ASTHMA 15:04:34 Dentures? Yes IN 15:04:53 Pre procedure: right dorsailis pedis pulse 2+ Normal; easily identifiable; not easily obliterated 15:04:56 Pre procedure: left dorsailis pedis pulse 2+ Normal; easily identifiable; not easily obliterated 15:05:07 IV patent on arrival in right forearm with 0.9% NaCl at KVO. 15:05:14 Lab results completed and on chart. 15:05:18 Bilateral groins area was prepped with chlora-prep and draped in sterile fashion 15:05:20 Alarms reviewed by R. N. 15:05:21 Sharps counted by scrub and verified by R.N. 15:05:24 Use device set Femoral Dx 15:05:25 ACIST Syringe (72561) opened to sterile field. 15:05:26 Bag Decanter () opened to sterile field. 15:05:28 ACIST Hand Control (90440) opened to sterile field. 15:05:29 ACIST Manifold (10886) opened to sterile field. 15:05:31 Tegaderm 4 x 4 (1626W) opened to sterile field. 15:05:39 Medline Cath Pack ([id number]) opened to sterile field. 15:05:40 DIAGNOSTIC WIRE .035 260cm J wire (892316) opened to sterile field. 15:05:41 DIAGNOSTIC Multipack 5Fr catheter set ([id number]) opened to sterile field. 15:05:44 SHEATH Prelude 5Fr 0.035 (PCP-5S-24-035) opened to sterile field. 15:14:15 Refer to Anesthesia Notes for Sedation Medications was administered by Catrachito Hess RN; ; 15:24:37 Zero performed for pressure channel P1 15:37:59 Zero performed for pressure channel P1 15:50:50 pt placed in procedural aides to bilateral wrists due to pt non compliant with not reaching up and touching sterile bilat groin areas. attempted to remind pt to not touch, pt states he will "scratch when he wants" . 15:55:19 Procedure not started yet . physician talking to families 15:56:16 --------ALL STOP TIME OUT------ 15:56:17 Final Timeout: patient, procedure, and site verified with staff and physician. All members of the team are in agreement. 15:56:19 Bilateral groins site verified by team. 15:56:24 Physical assessment completed. ASA score P 4 - A patient with severe systemic disease that is a constant threat to life as per Benson Davila MD. 15:56:27 Sedation plan: TIVA Medication:Propofol 15:56:29 Luc Alvarado present and monitoring patient for TIVA. 15:57:42 Procedure started. 15:58:55 Local anesthetic to left femerol artery with Lidocaine 2% by Benson Davila MD.INITIAL ACCESS ONLY 15:59:09 A 5 Fr sheath was inserted into the Left Femoral artery 15:59:34 A MULTIPACK Pigtail 5 Fr catheter was advanced over the wire and used for Procedure. 15:59:44 Injector settings: Ml/sec: 10, Volume: 20, 15:59:47 LV gram done using PEREZ 16:00:15 EF : 50 % 16:00:24 Abdominal angiogram w/ runoff was performed. 16:00:38 Left leg runoff performed. 16:00:56 Right leg runoff performed. 16:01:08 Catheter exchanged over wire. 16:01:35 A MULTIPACK JL 4.0 5Fr catheter was advanced over the wire and used for Procedure. 16:02:45 LCA angiography performed. 16:03:28 Catheter exchanged over wire. 16:03:43 A MULTIPACK 3DRC 5Fr catheter was advanced over the wire and used for Procedure. 16:03:53 CHOICE PT Extra Support 182cm wire ([id number]) opened to sterile field. 16:03:53 CHOICE PT Extra Support 182cm wire ([id number]) opened to sterile field. 16:03:59 SHEATH 6FR [place] (ZEV852) opened to sterile field. 16:04:02 INFLATOR Merit BasixCompak (FU4758) opened to sterile field. 16:04:57 RCA angiography performed. 16:05:20 Right carotid angiography performed. 16:05:39 Left carotid angiography performed. 16:05:55 Catheter exchanged over wire. 16:06:13 Sheath upsized to a 6 Fr Short. 16:06:27 Heparin Bolus 4000 units I.V. was administered by Catrachito Hess RN; for anticoagulation; 16:07:28 GUIDE 6FR EBU 3.5 catheter ([id number]) opened to sterile field. 16:07:48 6 Fr EBU 3.5 guide catheter was inserted over the wire 16:08:29 CHOICE ES 182 wire advanced. 16:09:00 CHOICE ES ACROSS CX 16:09:07 CHOICE ES 182 wire advanced. 16:09:52 CHOICE ES ACROSS LAD 16:11:16 Place stent Inflation Number: 1 A ZAID RX 3.5 x 08 stent ([id number]) was prepped and advanced across the Prox CX. The stent was deployed at 17 ALEXANDRE for 0:10 (min:sec). 16:11:33 Stent catheter was removed intact over wire. 16:12:42 Place stent Inflation Number: 1 A ZAID RX 3.5 x 08 stent ([id number]) was prepped and advanced across the Prox LAD. The stent was deployed at 13 ALEXANDRE for 0:10 (min:sec). 16:13:09 Inflation number: 2 The stent balloon was then re-inflated across the Prox LAD to 7 ALEXANDRE for 0:10 (min:sec). 16:13:25 Inflation number: 3 The stent balloon was then re-inflated across the Prox LAD to 13 ALEXANDRE for 0:10 (min:sec). 16:13:45 Inflation number: 4 The stent balloon was then re-inflated across the Prox LAD to 13 ALEXANDRE for 0:10 (min:sec). 16:14:17 Stent catheter was removed intact over wire. 16:17:47 EXOSEAL 6Fr (EX600) opened to sterile field. 16:17:50 Sheath removed intact; hemostasis achieved with Exoseal to the Left Femoral artery. 16:17:52 Procedure ended.(Physican Out) 16:18:37 Fluoroscopy time 06.00 minutes. 16:18:41 Fluoroscopy dose: 1086 mGy 16:18:41 Flurop Dose total: 1086 16:18:51 Contrast amount:Isovue 300 160ml. 16:18:53 Sharps counted by scrub and verified by R.N. 16:18:56 Post-op/insertion site Left Femoral artery dressed using a 4 x 4 and Tegaderm. 16:19:03 Post left femerol artery:stable, soft, clean and dry 16:19:09 Post-procedure physical assessment completed. ASA score P 4 - A patient with severe systemic disease that is a constant threat to life as per Benson Davila MD. 16:19:13 Post procedure rhythm: sinus rhythm 16:19:15 Estimated blood loss: 10 ml 16:19:17 Post procedure instruction explained to patient.Patient verbalizes understanding. 16:19:17 Patient needs reinforcement of post procedure teaching. 16:19:44 Procedure type changed to Cath procedure, Diagnostic procedure, LHC, LHC w/Coronaries, PCI procedure, Coronary Stent, Coronary Stent Initial, Coronary Stent Additional, Peripheral Cath Diagnostic Procedure, Cath Peripheral, Eukxk-Ajdxqng-Ais-Off, Four Vessel Arteriogram 16:22:09 Procedure and supply charges have been captured, reviewed, submitted and are correct. 16:22:11 Procedure Complication : No complications 16:22:14 Vital chart was stopped 16:22:15 See physician's report for complete and final results. 16:22:18 Report given to Pre/Post Procedure Room. 16:22:20 Patient transfered to Pre/Post Procedure Room with Bed. 16:22:22 Procedure ended. 16:22:22 Full Disclosure recording stopped 16:22:25 End room use (Document Last) Intervention Summary Intervention Notes Time ActionType Lesion and Equipment Used Action# Pressure Duration Attributes 16:11:16 Place stent Prox CX ZAID RX 3.5 x 1 17 00:10 08 stent ([id number]) 16:12:42 Place stent Prox LAD ZAID RX 3.5 x 1 13 00:10 08 stent ([id number]) 16:13:09 Reinflate Prox LAD ZAID RX 3.5 x 2 7 00:10 stent 08 stent balloon ([id number]) 16:13:25 Reinflate Prox LAD ZAID RX 3.5 x 3 13 00:10 stent 08 stent balloon ([id number]) 16:13:45 Reinflate Prox LAD ZAID RX 3.5 x 4 13 00:10 stent 08 stent balloon ([id number]) Device Usage Item Name Manufacture Quantity Catalog Number Hospital Part Current Minimal Lot# / Charge Number Stock Stock Serial# Code ACIST Syringe Acist 1 18182 988795 987152 326749 20 (85244) [employer] Bag Decanter Microtek 1 2002S 706812 94013 458863 5 (2002S) Medical Inc. ACIST Hand Acist 1 99094 397854 758660 614770 5 Control (05185) [employer] Inc ACIST Manifold Acist 1 61008 696380 255817 444192 5 (35314) [employer] Inc Tegaderm 4 x 4 3M 1 1626W 321411 385948 967036 5 (1626W) Medline Cath Cardinal 1 [id number] 467698 44375 844021 5 [facility] ([id number]) DIAGNOSTIC WIRE St [address] 1 775820 720453 236491 625035 30 .035 260cm J wire (235692) DIAGNOSTIC Cardinal 1 VT3853 521307 38643 507633 30 Multipack 5Fr Health catheter set (EJ4408) SHEATH Prelude Merit 1 KRU-1L-44-035 556767 212286 774831 5 5Fr 0.035 Medical (MQR-4N-46-035) MULTIPACK Cardinal 1 926890 5 Pigtail 5 Fr Health catheter MULTIPACK JL Cardinal 1 676011 5 4.0 5Fr Health catheter MULTIPACK 3DRC Cardinal 1 604121 5 5Fr catheter Health CHOICE PT Extra [place] 2 [id number] 358314 620379 197421 5 Support 182cm Scientific wire ([id number]) SHEATH 6FR Terumo 1 LKC374 755038 276946 613106 40 [place] (FLH215) INFLATOR Merit Merit 1 GA4442 846166 527414 778956 15 [facility] Medical (FB8132) GUIDE 6FR EBU Medtronic 1 [id number] 702744 02557 923854 3 3.5 catheter (XQ2FST68) ZAID RX 3.5 x Medtronic 2 [id number] 645188 6479411 615340 5 [id number] 08 stent [id number] ([id number]) EXOSEAL 6Fr Cardinal 1 EX600 525895 180250 072029 10 (EX600) Health Signature Audit [place] Stage Time Signature Unsigned Intra-Procedure 01/19/2018 Yareli Lau 4:33:58 PM RT(R) Signatures Monitor : Yareli Lau Signature : RT Date : Time : [place] [id number] [facility] [place] [address]
--- NOTE | ~2018-01-19 | OP ---
PATIENT NAME: LETA GARCIA JR MEDICAL RECORD: [id number] :65 LOCATION:D.CAT ADMISSION DATE: SURGEON: JANELL PETTIT MD DATE OF OPERATION: 01/19/2018 PROCEDURE: 1. Aortofemoral runoff. 2. Abdominal aortography. INDICATION: Claudication and peripheral vascular disease. DESCRIPTION OF PROCEDURE: After informed consent was obtained and after a detailed explanation of risks, benefits as well as alternative therapies, the patient elected to proceed with angiogram and aortofemoral runoff. The left femoral area had a preexisting sheath from cardiac intervention. All catheters exchanged through this sheath. FINDINGS: Abdominal aortography was performed. The catheter was pulled down for aortofemoral runoff. Abdominal aortography reveals no significant abdominal aortic disease, no dissection or aneurysmal formation. RIGHT LEG: A. Iliac: The common internal and external iliacs have mild irregularities, but no flow-limiting stenosis. B. Femoral system: The common superficial and deep femoral have mild irregularities, but no flow-limiting stenosis. C. Popliteal and infrapopliteal vessels are patent with good 3-vessel runoff to the foot, although mildly diffusely diseased. LEFT LEG: A. Iliac: The common internal and external iliacs have mild irregularities, but no flow-limiting stenosis. B. Femoral system: The common superficial and deep femoral have mild irregularities, but no flow-limiting stenosis. C. Popliteal and infrapopliteal vessels are patent with good 3-vessel runoff to the foot, although mildly diffusely diseased. OVERALL IMPRESSION: Minimal peripheral vascular disease is present. Leg pain is not secondary to arterial vascular insufficiency. TRANSINT:[id number] Voice Confirmation ID: [id number] DOCUMENT ID: [id number] JANELL PETTIT MD at 1403 CC: [id number] DICTATION DATE: 01/19/18 1624 PILLING MACHINE OPERATOR: 01/19/18 1647 DEP CLI 01/19/18 [place] [id number]
--- NOTE | ~2018-01-19 | OP ---
PATIENT NAME: LETA GARCIA JR MEDICAL RECORD: [id number] :65 LOCATION:D.CAT ADMISSION DATE: SURGEON: JANELL PETTIT MD DATE OF OPERATION: 01/19/2018 PROCEDURES: 1. PTCA stent LAD. 2. PTCA stent left circumflex. 3. Left heart catheterization. 4. Selective coronary angiography. 5. Left ventriculogram. INDICATIONS: Angina and coronary artery disease. PROCEDURE IN DETAIL: After informed consent was obtained and after a detailed explanation of risks, benefits as well as alternative therapies, the patient elected to proceed with angiogram and angioplasty. The left femoral area was prepped and draped in normal sterile fashion. Left femoral artery was cannulated via modified Seldinger technique with placement of 6-Romanian sheath. All catheters exchanged through this sheath. FINDINGS: The left ventriculogram was performed in standard 30-degree PEREZ view reveals preserved cardiac wall motion, ejection fraction in the 50% range. SELECTIVE CORONARY ANGIOGRAPHY: 1. Left main shows no significant angiographic disease. 2. Left anterior descending and circumflex, both had greater than 80% stenosis at the ostium. 3. The left circumflex has 80% stenosis at the ostium and the mid LAD has 90% stenosis at the ostium. 4. The right coronary artery has mild irregularities, but no flow-limiting stenosis. PTCA STENT OF THE LAD AND CIRCUMFLEX: Stents used in both were 3.5 x 8 mm Marquez stents. Result was 0% residual stenosis. OVERALL IMPRESSION: Successful PTCA stent of the LAD and circumflex going from 80-90% initial stenosis to 0% residual. TRANSINT:[id number] Voice Confirmation ID: [id number] DOCUMENT ID: [id number] JANELL PETTIT MD at 1403 CC: [id number] DICTATION DATE: 01/19/18 1624 CASING OPERATOR: 01/19/18 1638 DEP CLI 01/19/18 [place] [id number]
[2018-01-19 11:05] VITALS: BP 130/71; Ht 172.7 cm; Wt 97.7 kg
[2018-01-19 11:06] LABS: BASOPHILS 0.3 % (0-2); EOSINOPHILS 7.6 % (0-7); HEMATOCRIT 36.7 % (42.0-54.0); HEMOGLOBIN 12.3 g/dL (13.5-17.5); IMMATURE GRANULOCYTES 0.6 % (0-5); LYMPHOCYTES 38.9 % (15-50); MCH 30.9 pg (26.0-34.0); MCHC 33.5 g/dL (31.0-37.0); MCV 92.2 fL (80.0-100.0); MEAN PLATELET VOLUME 10.5 fL (7.4-10.4); NEUTROPHILS 44.6 % (40-80); PLATELET COUNT 211 10x3/uL (130-400); RBC 3.98 10x6/uL (4.20-6.10); RDW 12.9 % (11.5-14.5); WBC 10.8 10x3/uL (4.8-10.8)
[2018-01-19 11:20] LABS: CALC OSMOLALITY 279 mosm/kg (275-300); CALCIUM 9.2 mg/dL (8.5-10.1); CARBON DIOXIDE 28.2 mmol/L (21.0-32.0); CHLORIDE - SERUM 102 mmol/L (98-107); CREATININE - SERUM 0.8 mg/dL (0.6-1.3); POTASSIUM - SERUM 4.9 mmol/L (3.5-5.1); SODIUM 136 mmol/L (136-145); UREA NITROGEN 13 mg/dL (7-18); eGFR NON AFRICAN AMERICAN > 90 mL/min (90-120)
[2018-01-19 11:27] LABS: GLUCOSE 251 mg/dL (74-106)
[2018-01-19] MEDS ORDERED: BAYER CHEWABLE81 MG PO (18:20)
== END 2018-01-19 19:51 | disposition home or self-care (01) ==
LOC: D.CATH 10:11
PROVIDERS: Internal Medicine Interventional Cardiology
DX: I25.119 Atherosclerotic heart disease of native coronary artery with unspecified angina pectoris (principal); R55 Syncope and collapse; M79.605 Pain in left leg; M79.604 Pain in right leg; Z01.812 Encounter for preprocedural laboratory examination

== ENCOUNTER 2018-02-23 00:35 | Emergency (ER) | payer MEDICAID ==
[~2018-02-23] VITALS: Ht 172.7 cm; Wt 93.2 kg
[2018-02-23 00:46] VITALS: BP 154/85; Ht 172.7 cm; Wt 93.2 kg
[2018-02-23 01:11] LABS: BASOPHILS 0.4 % (0-2); EOSINOPHILS 4.9 % (0-7); HEMATOCRIT 38.5 % (42.0-54.0); IMMATURE GRANULOCYTES 0.6 % (0-5); LYMPHOCYTES 39.4 % (15-50); MCHC 33.8 g/dL (31.0-37.0); MCV 91.7 fL (80.0-100.0); MEAN PLATELET VOLUME 9.9 fL (7.4-10.4); MONOCYTES 6.9 % (2-11); NEUTROPHILS 47.8 % (40-80); PLATELET COUNT 221 10x3/uL (130-400); RDW 12.9 % (11.5-14.5); WBC 13.9 10x3/uL (4.8-10.8)
[2018-02-23 01:31] LABS: APTT 31.4 SECONDS (22.8-39.4); PROTIME 12.8 SECONDS (11.6-15.0)
[2018-02-23 01:33] LABS: D-DIMER-QUANTITATIVE 0.32 ug/mLFEU (0.20-0.54)
[2018-02-23 01:51] LABS: ALBUMIN 4.1 g/dL (3.4-5.0); ALKALINE PHOSPHATASE 63 U/L (46-116); ALT (SGPT) 39 U/L (10-68); BILIRUBIN - TOTAL 0.21 mg/dL (0.2-1.3); CALC OSMOLALITY 280 mosm/kg (275-300); CALCIUM 9.3 mg/dL (8.5-10.1); CHLORIDE - SERUM 100 mmol/L (98-107); CREATININE - SERUM 1.1 mg/dL (0.6-1.3); POTASSIUM - SERUM 3.6 mmol/L (3.5-5.1); PROTEIN - SERUM 8.1 g/dL (6.4-8.2); SODIUM 137 mmol/L (136-145); UREA NITROGEN 25 mg/dL (7-18); eGFR NON AFRICAN AMERICAN 75 mL/min (90-120)
[2018-02-23 01:53] LABS: CREATINE KINASE 116 UL (21-232); MAGNESIUM - SERUM 1.5 mg/dL (1.8-2.4); TROPONIN-I < 0.017 ng/mL (0.000-0.060)
[2018-02-23 01:58] LABS: GLUCOSE 149 mg/dL (74-106)
[2018-02-23 04:08] LABS: APPEARANCE CLEAR (CLEAR); COLOR YELLOW (YELLOW); SPECIFIC GRAVITY 1.015 (1.005-1.020)
[2018-02-23 04:09] LABS: BILIRUBIN NEGATIVE (NEGATIVE); GLUCOSE 500 mg/dL (NEGATIVE); KETONE NEGATIVE (NEGATIVE); NITRITE NEGATIVE (NEGATIVE); PROTEIN NEGATIVE (NEGATIVE); UROBILINOGEN NORMAL (NORMAL)
[2018-02-23 04:16] LABS: UDS - AMPHET NEGATIVE QUAL (NEGATIVE); UDS - BARB NEGATIVE QUAL (NEGATIVE); UDS - BENZO NEGATIVE QUAL (NEGATIVE); UDS - COCAINE NEGATIVE QUAL (NEGATIVE); UDS - OPIATE POSITIVE QUAL (NEGATIVE); UDS - PCP NEGATIVE QUAL (NEGATIVE); UDS - THC POSITIVE QUAL (NEGATIVE)
== END 2018-02-23 05:39 | disposition other institution (70) ==
LOC: D.ER 00:35 → D.EDHOLD 05:25 → D.ER 05:25
PROVIDERS: Family Medicine
DX: R07.9 Chest pain, unspecified (principal); F10.129 Alcohol abuse with intoxication, unspecified; E11.9 Type 2 diabetes mellitus without complications; I10 Essential (primary) hypertension; Z86.79 Personal history of other diseases of the circulatory system; F17.200 Nicotine dependence, unspecified, uncomplicated

== ENCOUNTER 2018-06-27 09:53 | Emergency (ER) | payer SELFPAY ==
[~2018-06-27] VITALS: Ht 172.7 cm; Wt 97.7 kg
[2018-06-27 10:17] VITALS: Ht 172.7 cm; Wt 97.7 kg
[2018-06-27 10:50] LABS: BASOPHILS 0.2 % (0-2); EOSINOPHILS 0.8 % (0-7); HEMATOCRIT 45.6 % (42.0-54.0); HEMOGLOBIN 15.8 g/dL (13.5-17.5); IMMATURE GRANULOCYTES 0.8 % (0-5); LYMPHOCYTES 25.4 % (15-50); MCH 31.2 pg (26.0-34.0); MCHC 34.6 g/dL (31.0-37.0); MCV 89.9 fL (80.0-100.0); MONOCYTES 7.9 % (2-11); NEUTROPHILS 64.9 % (40-80); PLATELET COUNT 260 10x3/uL (130-400); RBC 5.07 10x6/uL (4.20-6.10); RDW 13.4 % (11.5-14.5); WBC 14.4 10x3/uL (4.8-10.8)
[2018-06-27 11:05] LABS: APTT 27.6 SECONDS (22.8-39.4); INR 0.99 (0.85-1.17); PROTIME 12.7 SECONDS (11.6-15.0)
[2018-06-27 11:06] LABS: ALBUMIN 4.3 g/dL (3.4-5.0); ALKALINE PHOSPHATASE 71 U/L (46-116); ALT (SGPT) 108 U/L (10-68); BILIRUBIN - TOTAL 0.32 mg/dL (0.2-1.3); CALC OSMOLALITY 283 mosm/kg (275-300); CALCIUM 10.5 mg/dL (8.5-10.1); CARBON DIOXIDE 23.2 mmol/L (21.0-32.0); CHLORIDE - SERUM 96 mmol/L (98-107); CREATININE - SERUM 1.2 mg/dL (0.6-1.3); GLUCOSE 319 mg/dL (74-106); POTASSIUM - SERUM 5.4 mmol/L (3.5-5.1); SODIUM 135 mmol/L (136-145); UREA NITROGEN 19 mg/dL (7-18); eGFR NON AFRICAN AMERICAN 67 mL/min (90-120)
[2018-06-27 11:22] LABS: CKMB 0.9 U/L (0.0-3.6); CREATINE KINASE 408 UL (21-232); PRO BNP 155 pg/mL (0-125)
[2018-06-27 11:24] LABS: TROPONIN-I < 0.017 ng/mL (0.000-0.060)
[2018-06-27] MEDS ORDERED: AUGMENTIN 875-11 TAB PO (13:53)
[2018-06-27] MEDS ORDERED: PHENERGAN DM SYR5 ML PO (13:53)
[2018-06-27 14:45] VITALS: BP 100/67
== END 2018-06-27 14:31 | disposition home or self-care (01) ==
LOC: D.ER 09:53
PROVIDERS: Family Medicine
DX: J40 Bronchitis, not specified as acute or chronic (principal); J06.9 Acute upper respiratory infection, unspecified; G40.909 Epilepsy, unspecified, not intractable, without status epilepticus; E11.9 Type 2 diabetes mellitus without complications; I10 Essential (primary) hypertension; I25.10 Atherosclerotic heart disease of native coronary artery without angina pectoris; F17.200 Nicotine dependence, unspecified, uncomplicated

== ENCOUNTER 2018-08-13 10:38 | Inpatient (IN) | payer MEDICAID ==
[~2018-08-13] VITALS: Ht 172.7 cm; Wt 93.7 kg
[2018-08-13] VITALS (21 sets, daily range): BP systolic 118–146; BP diastolic 70–91; BMI 32.7
--- NOTE | ~2018-08-13 | HEMODYNAMI ---
PATIENT:LETA GARCIA JR MEDICAL RECORD: [id number] : 65 LOCATION:[facility] ADMISSION DATE: 08/13/18 Generatedon:08/13/201811:53 Patient name: LETA GARCIA Patient #: [id number] SSN: : 1965 Date of study: 08/13/2018 Page: Of Hemodynamic Procedure Report Patient Data Patient Demographics Procedure consent was obtained First Name: LETA Gender: Male Last Name: RADHA Suffix: Jr Ruano Initial: ANGELINA : 1965 Patient #: [id number] Age: 53 year(s) Race: Additional ID: [id number] Contact details Address: [address] [address] State: [place] City: [place] Zip code: [address] Past Medical History Allergies: No known allergies Admission Admission Data Admission Date: 08/13/2018 Admission Time: 10:38 Procedure Procedure Types Cath Procedure Diagnostic Procedure LHC LHC w/Coronaries PCI Procedure AMI/SVG/DESKTOP PUBLISHING OPERATOR PTCA or Stent AMI-BMS/MAYNOR Initial Procedure Description Procedure Date Procedure Date: 08/13/2018 Procedure Start Time: 11:34 Procedure End Time: 11:53 Procedure Staff Name Function Benson Davila MD Performing Physician Genoveva Leal RT Monitor Catrachito Hess RN Nurse Jarrod Stark RT Scrub Procedure Data Cath Procedure Fluoroscopy Diagnostic fluoroscopy Total fluoroscopy Time: 4.7 time: 4.7 min min Diagnostic fluoroscopy Total fluoroscopy dose: 650 dose: 650 mGy mGy Contrast Material Contrast Material Type Amount (ml) Isovue 300 84 Entry Location Entry Primary Successful Side Size Upsize Upsize Entry Closure Succes sful Closure Location (Fr) 1 (Fr) 2 (Fr) Remarks Device Remarks Femoral Right 6 Fr Exoseal artery Short Estimated blood loss: 10 ml Diagnostic catheters Device Type Used For End Catheter Placement MULTIPACK Pigtail 5 Fr LV Angiography catheter MULTIPACK JL 4.0 5Fr Left Coronary catheter Angiography MULTIPACK 3DRC 5Fr Right Coronary catheter Angiography DIAGNOSTIC AR2 MOD 5 Fr Right Coronary catheter ([id number]) Angiography Procedure Complications No complications Procedure Medications Medication Administration Route Dosage Oxygen 100 Lidocaine 2% added to field 20 Heparin Flush Bag added to field 2 bags (1000units/500ml NS) 0.9% NaCl I.V. 100 ml/hr Diprivan 1% I.V. 50 mcg/kg/min (Propofol) Lopressor I.V. 5 mg Lopressor I.V. 5 mg Heparin Bolus I.V. 5000 units Integrilin (Bolus I.V. 8.5 ml 2mg/ml) Hemodynamics Rest Heart Rate: 131 (bpm) Snapshots Pre Cath Intra NCS Post Cath Vital Signs Time Heart Resp SPO2 NIBP (mmHg) Rhythm Pain Sedation Rate (ipm) (%) Status Level (bpm) 11:27:04 131 12 100 Measuring NSR 0 (11) 5(A) , No pain 11:27:53 131 17 100 208/124(154) NSR 0 (11) 5(A) , No pain 11:32:34 128 22 100 198/121(152) NSR 0 (11) 5(A) , No pain 11:37:08 105 14 100 159/111(136) NSR 0 (11) 5(A) , No pain 11:42:46 93 13 100 158/90(132) NSR 0 (11) 5(A) , No pain 11:47:10 90 14 100 149/97(119) NSR 0 (11) 5(A) , No pain 11:52:09 92 12 100 152/107(124) NSR 0 (11) 5(A) , No pain Medications Time Medication Route Dose Verified Delivered Reason Notes Effectiveness by by 11:25:45 Oxygen et 100% Benson Winston for low 02 sats tube/venitlator intubated Giovanni Hess RN well logging captain mud analysis 11:25:54 Lidocaine 2% added to field 20ml vial Benson Knowles for loca l Giovanni Davila MD anesthetic 11:26:00 Heparin Flush added to field 2 bags Benson Knowles used for Bag Giovanni Davila MD procedure (1000units/500ml NS) 11:26:10 0.9% NaCl I.V. 100 ml/hr Benson Winston Per phys ician Giovanni Hess RN 11:26:51 Diprivan 1% I.V. 50 Benson Winston Per phys ician (Propofol) mcg/kg/min Giovanni Hess RN 11:34:46 Lopressor I.V. 5 mg Benson Winston Per phys ician Giovanni Hess RN 11:37:58 Lopressor I.V. 5 mg Benson Winston Per phys ician Giovanni Hess RN 11:39:28 Heparin Bolus I.V. 5000 units Benson Winston for verified Giovanni Hess RN anticoagulation with dr davila 11:40:32 Integrilin I.V. 8.5 ml Benson Winston for wasted (Bolus 2mg/ml) Giovanni Hess RN antiplatelet 1 .5 ml therapy of vial Procedure Log Time Note 11:10:24 Jarrod Stark RT(R) sent for patient. Start room use. 11:10:25 Time tracking: Call back (After hours or weekends) 11:10:38 Plan of Care:Hemodynamics will remain stable., Cardiac rhythm will remain stable., Comfort level will be maintained., Respiratory function will remain adequate., Patient/ family verbilizes understanding of procedure., Procedure tolerated without complication., Recovers from procedure without complications.. 11:18:00 Patient received from ED to CCL 1 Alert and oriented. Tansferred to table in Supine position. 11:18:01 Warm blankets applied, and yolanda hugger turned on for patient comfort. 11:18:01 Correct patient and procedure confirmed by team. 11:18:03 Signed procedure consent form obtained from not obtained; Physician declared emergency. 11:18:03 ECG and BP/O2 sat monitors applied to patient. 11:18:04 Full Disclosure recording started 11:25:15 Vital chart was started 11:25:45 Oxygen 100% intubated well logging captain mud analysis et tube/venitlator was administered by Catrachito Hess RN; for low 02 sats; 11:25:54 Lidocaine 2% 20ml vial added to field was administered by Benson Davila MD; for local anesthetic; 11:26:00 Heparin Flush Bag (1000units/500ml NS) 2 bags added to field was administered by Benson Davila MD; used for procedure; 11:26:10 0.9% NaCl 100 ml/hr I.V. was administered by Catrachito Hess RN; Per physician; 11:26:51 Diprivan 1% (Propofol) 50 mcg/kg/min I.V. was administered by Catrachito Hess RN; Per physician; 11:28:00 Baseline sample Acquired. 11:28:03 Rhythm: sinus tachycardia, w/ ST elevation 11:28:17 H&P Date Dictated: 08/13/2018 ER History on chart.. 11:28:18 Pre-procedure instructions explained to patient. 11:28:19 Pre-op teaching completed and patient verbalized understanding. 11:28:20 Family in waiting room. 11:28:22 Patient NPO since Midnight. 11:28:58 PATIENT ARRIVED ON VENT, UNABLE TO OBTAIN PRE ASSESSMENT 11:29:07 Is the patient allergic to Iodine/contrast media? No. 11:29:11 Pre procedure: right dorsailis pedis pulse 2+ Normal; easily identifiable; not easily obliterated 11:29:13 Patient pain scale 0/10 ?. 11:29:22 IV patent on arrival in right antecubital, left antecubital with 0.9% NaCl at KVO. 11:29:25 Lab results completed and on chart. 11:29:29 Right groin area was prepped with chlora-prep and draped in sterile fashion 11:29:29 Alarms reviewed by R. N. 11:29:30 Sharps counted by scrub and verified by R.N. 11:29:31 Final Timeout: patient, procedure, and site verified with staff and physician. All members of the team are in agreement. 11:29:32 Right groin site verified by team. 11:29:35 Physical assessment completed. ASA score P 4 - A patient with severe systemic disease that is a constant threat to life as per Benson Davila MD. 11:29:38 Sedation plan: IV Moderate Sedation Medication:Versed, Fentanyl 11:30:26 Use device set Femoral Dx 11:30:28 ACIST Syringe (23292) opened to sterile field. 11:30:28 Bag Decanter () opened to sterile field. 11:30:29 Medline Cath Pack ([id number]) opened to sterile field. 11:30:29 DIAGNOSTIC WIRE .035 260cm J wire (202970) opened to sterile field. 11:30:31 ACIST Hand Control (84720) opened to sterile field. 11:30:32 ACIST Manifold (60194) opened to sterile field. 11:30:34 DIAGNOSTIC Multipack 5Fr catheter set (EQ4013) opened to sterile field. 11:30:35 Tegaderm 4 x 4 (1626W) opened to sterile field. 11:31:07 Use device set [facility] PCI 11:31:09 SHEATH 6FR Orlando (JLA348) opened to sterile field. 11:31:11 INFLATOR Merit BasixCompak (SY7052) opened to sterile field. 11:31:13 CHOICE PT Extra Support 182cm wire ([id number]) opened to sterile field. 11:31:19 Zero performed for pressure channel P1 11:34:27 Procedure started. 11:34:29 Local anesthetic to right femoral artery with Lidocaine 2% by Benson Davila MD.INITIAL ACCESS ONLY 11:34:35 A 6 Fr Short sheath was inserted into the Right Femoral artery 11:34:46 Lopressor 5 mg I.V. was administered by Catrachito Hess RN; Per physician; 11:35:45 A MULTIPACK Pigtail 5 Fr catheter was advanced over the wire and used for LV Angiography. 11:35:46 LV gram done using PEREZ 11:35:50 EF : 30 % 11:35:54 Injector settings: Ml/sec: 10, Volume: 20, 11:35:55 Catheter removed. 11:36:32 A MULTIPACK JL 4.0 5Fr catheter was advanced over the wire and used for Left Coronary Angiography. 11:36:51 Catheter removed. 11:36:56 A MULTIPACK 3DRC 5Fr catheter was advanced over the wire and used for Right Coronary Angiography. 11:37:58 Lopressor 5 mg I.V. was administered by Catrachito Hess RN; Per physician; 11:38:56 Catheter removed. 11:39:10 A DIAGNOSTIC AR2 MOD 5 Fr catheter ([id number]) was advanced over the wire and used for Right Coronary Angiography. 11:39:15 Catheter removed. 11:39:28 Heparin Bolus 5000 units I.V. was administered by Catrachito Hess RN; for anticoagulation; verified with dr davila 11:40:11 GUIDE 6FR XBLAD 4.0 catheter ([id number]) opened to sterile field. 11:40:18 6 Fr XBLAD 4.0 guide catheter was inserted over the wire 11:40:32 Integrilin (Bolus 2mg/ml) 8.5 ml I.V. was administered by Catrachito Hess RN; for antiplatelet therapy; wasted 1.5 ml of vial 11:40:58 CHOICE PT ES wire advanced. 11:42:36 Inflate balloon Inflation number: 1 A EUPHORA 1.5 x 20 Balloon ([id number]) was prepped and advanced across the Prox CX, then inflated to 21 ALEXANDRE for 0:08 (min:sec). 11:42:58 Inflation number: 3 The EUPHORA 1.5 x 20 Balloon ([id number]) was reinflated across the Prox CX, to 21 ALEXANDRE for 0:05 (min:sec). 11:43:02 Balloon removed over the wire. 11:44:26 Inflate balloon Inflation number: 3 A EUPHORA 3.5 x 15 Balloon ([id number]) was prepped and advanced across the Prox CX, then inflated to 17 ALEXANDRE for 0:05 (min:sec). 11:44:51 Balloon removed over the wire. 11:46:16 Inflate balloon Inflation number: 4 A INTEGRITY RX 4.0 x 09 stent ([id number]) was prepped and advanced across the Prox CX, then inflated to 21 ALEXANDRE for 0:08 (min:sec). 11:46:41 Stent catheter was removed intact over wire. 11:46:44 Wire removed. 11:46:44 Guide catheter removed. 11:46:59 Sheath removed intact; hemostasis achieved with Exoseal to the Right Femoral artery. 11:47:01 Procedure ended.(Physican Out) 11:48:08 Fluoroscopy time 04.70 minutes. 11:48:12 Flurop Dose total: 650 11:48:12 Fluoroscopy dose: 650 mGy 11:48:34 Contrast amount:Isovue 300 84ml. 11:48:36 Sharps counted by scrub and verified by R.N. 11:48:38 Insertion/operative site no bleeding no hematoma. 11:48:41 Post-op/insertion site Right Femoral artery dressed using a 4 x 4 and Tegaderm. 11:48:44 Post right femoral artery:stable, clean and dry 11:48:51 Post Procedure Pulses reassessed and unchanged 11:48:54 Post procedure: right dorsailis pedis pulse 2+ Normal; easily identifiable; not easily obliterated. 11:49:12 Post-procedure physical assessment completed. ASA score P 4 - A patient with severe systemic disease that is a constant threat to life as per Benson Davila MD. 11:49:15 Post procedure rhythm: unchanged. 11:49:25 Estimated blood loss: 10 ml 11:49:27 Post procedure instruction explained to patient.Patient verbalizes understanding. 11:49:27 Patient needs reinforcement of post procedure teaching. 11:49:36 Procedure type changed to Cath procedure, Diagnostic procedure, LHC, LHC w/Coronaries, PCI procedure, AMI/SVG/DESKTOP PUBLISHING OPERATOR PTCA or Stent, AMI-BMS/MAYNOR Initial 11:51:55 Procedure Complication : No complications 11:51:57 See physician's report for complete and final results. 11:52:05 EXOSEAL 6Fr (EX600) opened to sterile field. 11:52:34 Procedure and supply charges have been captured, reviewed, submitted and are correct. 11:52:45 Vital chart was stopped 11:52:46 Report given to CVICU. 11:52:50 Patient transfered to CVICU with Bed. 11:53:02 Procedure ended. 11:53:02 Full Disclosure recording stopped 11:53:38 End room use (Document Last) Intervention Summary Intervention Notes Time ActionType Lesion and Equipment Action# Pressure Duration Attributes Used 11:42:36 Inflate Prox CX EUPHORA 1.5 1 21 00:08 balloon x 20 Balloon ([id number]) 11:42:58 Reinflate Prox CX EUPHORA 1.5 3 21 00:05 balloon x 20 Balloon ([id number]) 11:44:26 Inflate Prox CX EUPHORA 3.5 3 17 00:05 balloon x 15 Balloon ([id number]) 11:46:16 Inflate Prox CX INTEGRITY RX 4 21 00:08 balloon 4.0 x 09 stent ([id number]) Device Usage Item Name Manufacture Quantity Catalog Number Hospital Part Current Mini mal Lot# / Charge Number Stock Stock Serial# Code [facility] Acist 1 95309 287147 367526 742547 20 Syringe GlySens (81905) Systems Inc Bag Decanter Microtek 1 971540 29588 212070 5 () Medical Inc. Medline Cath Medline 1 [id number] 236415 44690 866881 5 Pack ([id number]) DIAGNOSTIC St [address] 1 257799 703699 284329 972883 30 WIRE .035 260cm J wire (303345) ACIST Hand Acist 1 76100 206434 727666 695022 5 Control Medical (07258) Systems Inc ACIST Acist 1 45143 341473 407879 567674 5 Manifold Medical (87409) Systems Inc DIAGNOSTIC Cardinal 1 ZL5982 915753 52684 247483 30 Multipack Health 5Fr catheter set (DX6427) Tegaderm 4 x 3M 1 1626W 472227 888322 660299 5 4 (1626W) SHEATH 6FR Terumo 1 VUD136 200214 804041 424186 40 Orlando (NZY711) INFLATOR Merit 1 CW4885 699281 072984 054371 15 Philz Coffee Medical BasixCompak (CM3900) CHOICE PT Parlin 1 [id number] 255410 403744 880108 5 Extra Scientific Support 182cm wire ([id number]) MULTIPACK Cardinal 1 972271 5 Pigtail 5 Fr Health catheter MULTIPACK JL Cardinal 1 806296 5 4.0 5Fr Health catheter MULTIPACK Cardinal 1 660590 5 3DRC 5Fr Health catheter DIAGNOSTIC Cardinal 1 [id number] 055364 452207 921278 20 AR2 MOD 5 Fr Health catheter (908088S) GUIDE 6FR Cardinal 1 [id number] 351527 479921 739882 3 XBLAD 4.0 Health catheter (44340982) EUPHORA 1.5 Medtronic 1 [id number] 112083 077466 723670 5 x 20 Balloon ([id number]) EUPHORA 3.5 Medtronic 1 [id number] 710983 099954 691778 5 x 15 Balloon ([id number]) INTEGRITY RX Medtronic 1 [id number] 448723 445805 377675 5 4.0 x 09 stent ([id number]) EXOSEAL 6Fr Cardinal 1 EX600 439587 247293 760916 10 (EX600) Health Signature Audit Fitzpatrick Stage Time Signature Unsigned Intra-Procedure 08/13/2018 Genoveva 11:53:48 AM Counts RT(R) Signatures Monitor : Genoveva Signature : Counts RT Date : Time : [id number] [place] [address]
--- NOTE | ~2018-08-13 | OP ---
PATIENT NAME: LETA GARCIA JR MEDICAL RECORD: [id number] :65 LOCATION:[facility] ADMISSION DATE:08/13/18 SURGEON: JANELL PETTIT MD DATE OF OPERATION: 08/13/2018 DATE OF SERVICE: 08/13/2018 PROCEDURES: 1. PTCA stent of left circumflex. 2. Left heart catheterization. 3. Selective coronary angiography. 4. Left ventriculogram. INDICATION: Acute inferior myocardial infarction. PROCEDURE IN DETAIL: After informed consent was obtained and after a detailed description of risks, benefits as well as alternative therapies, the patient elected to proceed with angiogram and angioplasty. The right femoral area was prepped and draped in normal sterile fashion. Right femoral artery was cannulated via modified Seldinger technique with placement of 6-Spanish sheath. All catheters exchanged through this sheath. FINDINGS: The left ventriculogram was performed in standard 30-degree PEREZ view, reveals inferior hypokinesis, ejection fraction in the 35-40% range. SELECTIVE CORONARY ANGIOGRAPHY: 1. Left main has no significant angiographic disease. 2. Left anterior descending has previously placed stents. There is 50-70% in-stent restenosis in the mid vessel, but no critical disease. 3. Left circumflex has previously placed stents. There is 99% stenosis at the ostium. This is a codominant circumflex. 4. The right coronary has mild irregularities, but no flow-limiting stenosis. Previously placed stents are widely patent. PTCA STENT OF THE LEFT CIRCUMFLEX AND OSTIUM: The stent used was a 4.0 x 9 mm Integrity. Result was 0% residual stenosis. OVERALL IMPRESSION: Successful percutaneous transluminal coronary angioplasty stent of the left circumflex going from 99% initial stenosis to 0% residual. TRANSINT:[id number] Voice Confirmation ID: [id number] DOCUMENT ID: [id number] JANELL PETTIT MD at 1454 CC: [id number] DICTATION DATE: 08/13/18 1154 HARD METALS HAND ENGRAVER: 08/13/18 1208 DIS IN 08/15/18 [place] [address]
--- NOTE | ~2018-08-13 | CN ---
PATIENT NAME:LETA CARBAJAL JR MEDICAL RECORD: [id number] : 65 LOCATION:[facility] ADMIT DATE: 08/13/18 ACCOUNT: [id number] CONSULTING PHYSICIAN: DELIA MCGEE MD REFERRING PHYSICIAN: CECE RIOS MD DATE OF CONSULTATION: 08/13/2018 CONSULT REQUESTING PHYSICIAN: Dr. Davila. REASON FOR CONSULTATION: Vent management. HISTORY OF PRESENT ILLNESS: Mr. Carbajal is a 53-year-old gentleman who was brought into the ER by EMS with seizure disorder, found out the patient's troponin was high. The patient was taken to the cardiac catheterization lab. The patient was very combative and intubated in the ER. Now, the patient is orally intubated and sedated. The history was taken by reviewing the patient's note as well as talking to Dr. Rios. REVIEW OF SYSTEMS: As in history of present illness. PAST MEDICAL HISTORY: 1. Seizure disorder. 2. Diabetes mellitus. 3. Coronary artery disease status post angioplasty and stent placement. ALLERGIES: No known drug allergy. MEDICATIONS: On [email or web address] is reviewed. PERSONAL AND SOCIAL HISTORY: The patient is drinking on a regular basis. He also was a smoker. FAMILY HISTORY: Significant for cardiovascular disease. PHYSICAL EXAMINATION: GENERAL: Now, the patient is orally intubated and sedated. VITAL SIGNS: The blood pressure is 142/85, pulse is 89, respiration is 14, temperature 98.1, and SPO2 is 100% on assist control mechanical ventilation. HEENT: Conjunctivae are pink. Sclerae are not icteric. NECK: Supple, no JVD. CHEST: No wheeze, no rales. HEART: Rhythm regular, normal sound, no murmur. ABDOMEN: Soft, bowel sounds present. No hepatosplenomegaly. RECTAL: Deferred. EXTREMITIES: No cyanosis, no clubbing, no pedal edema. CENTRAL NERVOUS SYSTEM: The patient is orally intubated and sedated. CHEST RADIOGRAPH: The patient is intubated. There are low lung volumes. There is a left basilar retrocardiac airspace disease. LABORATORY DATA: CBC: WBC 25.8, hemoglobin 14.2, hematocrit is 43.2, the platelet count is 275. Chemistry: Sodium 134, potassium 4.3, chloride 94, bicarbonate was 15.4, BUN is 17, creatinine is 1.5. The glucose of 460. The troponin was 0.35. CONSULT REPORT [id number] LETA CARBAJAL JR IMPRESSION: 1. Acute respiratory failure post-seizure and postictal. 2. Acute myocardial infarction. 3. Seizure disorder. 4. Chronic obstructive pulmonary disease without exacerbation and tobacco dependence syndrome. 5. Alcoholism. 6. Leukocytosis. 7. Pneumonia, left lower lobe. RECOMMENDATION: 1. We will continue the mechanical ventilation and start weaning him early in a.m. as the patient had a seizure today as well as acute IA and the patient is very combative. 2. Start on empiric Zosyn. 3. DVT and GI bleed prophylaxis. 4. Follow up labs and chest radiograph. Discussed with RN and RT. Discussed with Dr. Rios. We will start weaning him in the morning. Dr. Davila, thank you for involving me in the care of Mr. Carbajal. TRANSINT:[id number] Voice Confirmation ID: [id number] DOCUMENT ID: [id number] DELIA MCGEE MD at 1507 CC: [id number] DICTATION DATE: 08/13/18 1440 PROFILER OPERATOR: 08/13/18 1546 DIS IN 08/15/18 [id number] [place] [address]
--- NOTE | ~2018-08-13 | CN ---
PATIENT NAME:LETA CARBAJAL JR MEDICAL RECORD: [id number] : 65 LOCATION:[facility] ADMIT DATE: 08/13/18 ACCOUNT: [id number] CONSULTING PHYSICIAN: JANELL PETTIT MD REFERRING PHYSICIAN: CECE RIOS MD DATE OF CONSULTATION: 08/13/2018 CARDIOLOGY CONSULTATION ADMITTING DIAGNOSES: 1. Acute inferior myocardial infarction. 2. Seizure, postictal. 3. Coronary artery disease. 4. Previous multivessel percutaneous transluminal coronary angioplasty stent. 5. Hypertension. 6. Hyperlipidemia. 7. Chronic obstructive pulmonary disease. 8. Smoking history. HISTORY OF PRESENT ILLNESS: Mr. Carbajal presents after a seizure. His EKG is compatible with an acute inferior myocardial infarction. He does have a history of coronary artery disease, multivessel PTCA stent in the past. He is combative in the postictal phase and was intubated. PHYSICAL EXAMINATION: GENERAL APPEARANCE: Well-nourished, well-developed, appears stated age. Level of distress, comfortable. PSYCHIATRIC: Mental status, alert, normal affect. Orientation, oriented to time, place and person. EYES: Lids and conjunctiva, noninjected. No discharge, no pallor. ENT: Lips, teeth, gums, normal dentition. Oropharynx, no cyanosis, no pallor. NECK: Carotid arteries, bilateral normal upstroke, no bruits, no thrills. JUGULAR VEINS: No jugular venous pressure or distention. CERVICAL LYMPH NODES: Nontender, nonenlarged. THYROID: Not enlarged. Nontender. No nodules. LUNGS: Respiratory effort, unlabored. CHEST: Normal curvature. No thoracic deformity. No chest wall tenderness. Percussion, resonant. Auscultation, clear. No wheezes, no rales, no rhonchi. CARDIOVASCULAR: Precordial exam, nondisplaced. No heaves or pericardial thrills. Rate and rhythm, regular. Heart sounds, normal S1, normal S2. No S3, no gallop, no rub. Systolic murmur, not heard. Diastolic murmur, not heard. EXTREMITIES: No cyanosis, no edema. Peripheral pulses, full and equal in all extremities, except as noted. No bruits appreciated. ABDOMEN: Soft, nondistended. Normal aorta. No bruit. Nontender. No masses. Liver, nontender, no hepatomegaly. Spleen, nontender, no splenomegaly. MUSCULOSKELETAL: No joint tenderness. No joint swelling. No erythema. NEUROLOGICAL: Normal gait, normal strength, normal tone. SKIN: Warm and dry. OVERALL IMPRESSION: EKG compatible with an acute inferior myocardial infarction in a patient with a past history of multivessel coronary artery disease. We will proceed with emergent coronary angiography. Further care depends upon findings of the angiography. TRANSINT:[id number] Voice Confirmation ID: [id number] DOCUMENT ID: [id number] CONSULT REPORT [id number] LETA CARBAJAL JR, JEFFREY MD at 1457 CC: [id number] DICTATION DATE: 08/13/18 1106 STUD BEEF CATTLE FARMER: 08/13/18 1111 DIS IN 08/15/18 [id number] [place] [address]
[~2018-08-13 10:38] MED LIST changes: +AUGMENTIN 875-11 TAB PO; +PHENERGAN DM SYR5 ML PO
[2018-08-13 11:16] LABS: HEMATOCRIT 43.2 % (42.0-54.0); HEMOGLOBIN 14.2 g/dL (13.5-17.5); INR 1.02 (0.85-1.17); MCH 31.1 pg (26.0-34.0); MCHC 32.9 g/dL (31.0-37.0); MCV 94.5 fL (80.0-100.0); MEAN PLATELET VOLUME 10.3 fL (7.4-10.4); PLATELET COUNT 275 10x3/uL (130-400); PROTIME 12.9 SECONDS (11.6-15.0); RBC 4.57 10x6/uL (4.20-6.10); RDW 12.8 % (11.5-14.5); WBC 25.8 10x3/uL (4.8-10.8)
[2018-08-13 11:38] LABS: ALKALINE PHOSPHATASE 64 U/L (46-116); ALT (SGPT) 78 U/L (10-68); BILIRUBIN - TOTAL 0.22 mg/dL (0.2-1.3); CALCIUM 9.6 mg/dL (8.5-10.1); CARBON DIOXIDE 15.4 mmol/L (21.0-32.0); CHLORIDE - SERUM 94 mmol/L (98-107); CKMB 2.6 U/L (0.0-3.6); CREATINE KINASE 165 UL (21-232); CREATININE - SERUM 1.5 mg/dL (0.6-1.3); POTASSIUM - SERUM 4.3 mmol/L (3.5-5.1); PROTEIN - SERUM 8.5 g/dL (6.4-8.2); SODIUM 134 mmol/L (136-145); UREA NITROGEN 17 mg/dL (7-18); VALPROIC ACID (DEPAKOTE) 10.7 ug/mL (50.0-100.0); eGFR NON AFRICAN AMERICAN 52 mL/min (90-120)
[2018-08-13 11:40] LABS: CALC OSMOLALITY 289 mosm/kg (275-300)
[2018-08-13 11:41] LABS: GLUCOSE 460 mg/dL (74-106); TROPONIN-I 0.353 ng/mL (0.000-0.060)
[2018-08-13 11:54] LABS: BASOPHILS 1 % (0-2); EOSINOPHILS 1 % (0-7); LYMPHOCYTES 18 % (15-50); MONOCYTES 13 % (2-11); NEUTROPHILS 59 % (40-80)
[2018-08-13 11:55] LABS: PLATELET ESTIMATE NORMAL
[2018-08-13 16:53] LABS: HEMATOCRIT 35.9 % (42.0-54.0); HEMOGLOBIN 12.4 g/dL (13.5-17.5)
[2018-08-13 20:17] LABS: HEMATOCRIT 36.1 % (42.0-54.0); HEMOGLOBIN 12.4 g/dL (13.5-17.5)
[2018-08-14] VITALS (21 sets, daily range): BP systolic 108–140; BP diastolic 61–85; Ht 172.7 cm; Wt 93.7 kg
[2018-08-14 04:15] LABS: BASOPHILS 0.3 % (0-2); EOSINOPHILS 1.2 % (0-7); HEMATOCRIT 35.6 % (42.0-54.0); HEMOGLOBIN 11.9 g/dL (13.5-17.5); IMMATURE GRANULOCYTES 0.4 % (0-5); LYMPHOCYTES 25.7 % (15-50); MCH 30.5 pg (26.0-34.0); MCHC 33.4 g/dL (31.0-37.0); MEAN PLATELET VOLUME 9.9 fL (7.4-10.4); MONOCYTES 9.2 % (2-11); NEUTROPHILS 63.2 % (40-80); RDW 13.1 % (11.5-14.5)
[2018-08-14 04:22] LABS: MCV 91.3 fL (80.0-100.0); PLATELET COUNT 216 10x3/uL (130-400); WBC 11.6 10x3/uL (4.8-10.8)
[2018-08-14 04:42] LABS: ALKALINE PHOSPHATASE 45 U/L (46-116); ALT (SGPT) 61 U/L (10-68); BILIRUBIN - TOTAL 0.22 mg/dL (0.2-1.3); CALC OSMOLALITY 285 mosm/kg (275-300); CALCIUM 8.1 mg/dL (8.5-10.1); CARBON DIOXIDE 22.8 mmol/L (21.0-32.0); CHLORIDE - SERUM 104 mmol/L (98-107); GLUCOSE 206 mg/dL (74-106); POTASSIUM - SERUM 3.9 mmol/L (3.5-5.1); PROTEIN - SERUM 6.7 g/dL (6.4-8.2); SODIUM 140 mmol/L (136-145); UREA NITROGEN 15 mg/dL (7-18); eGFR NON AFRICAN AMERICAN 83 mL/min (90-120)
[2018-08-15] VITALS (10 sets, daily range): BP systolic 107–155; BP diastolic 72–87
== END 2018-08-15 15:20 | disposition home or self-care (01) | DRG 248 ==
LOC: D.ER 10:38 → D.CVICU 10:38 → D.CATH 10:38 → EDSTATUS 11:35 → D.CVICU 12:09 → D.CATH 12:10 → D.CVICU 12:11
PROVIDERS: Family Medicine; Internal Medicine Gastroenterology; Internal Medicine Interventional Cardiology
PROC: B2151ZZ Fluoroscopy of Left Heart using Low Osmolar Contrast (ICD-10-PCS; 2018-08-13)
PROC: 4A023N7 Measurement of Cardiac Sampling and Pressure, Left Heart, Percutaneous Approach (ICD-10-PCS; 2018-08-13)
PROC: 5A1935Z Respiratory Ventilation, Less than 24 Consecutive Hours (ICD-10-PCS; 2018-08-13)
PROC: 0BH17EZ Insertion of Endotracheal Airway into Trachea, Via Natural or Artificial Opening (ICD-10-PCS; 2018-08-13)
PROC: 02703DZ Dilation of Coronary Artery, One Artery with Intraluminal Device, Percutaneous Approach (ICD-10-PCS; principal; 2018-08-13 11:10)
PROC: B2111ZZ Fluoroscopy of Multiple Coronary Arteries using Low Osmolar Contrast (ICD-10-PCS; 2018-08-13 11:10)
DX: I21.9 Acute myocardial infarction, unspecified (principal); J18.9 Pneumonia, unspecified organism; J96.00 Acute respiratory failure, unspecified whether with hypoxia or hypercapnia; J44.1 Chronic obstructive pulmonary disease with (acute) exacerbation; F17.200 Nicotine dependence, unspecified, uncomplicated; I48.91 Unspecified atrial fibrillation; I25.10 Atherosclerotic heart disease of native coronary artery without angina pectoris; E11.9 Type 2 diabetes mellitus without complications; F10.20 Alcohol dependence, uncomplicated; G40.909 Epilepsy, unspecified, not intractable, without status epilepticus; Z95.5 Presence of coronary angioplasty implant and graft; D64.9 Anemia, unspecified; W19.XXXA Unspecified fall, initial encounter; S92.902A Unspecified fracture of left foot, initial encounter for closed fracture; I10 Essential (primary) hypertension; E78.5 Hyperlipidemia, unspecified

== ENCOUNTER 2018-09-14 09:23 | Outpatient (CLI) | payer MEDICAID ==
[~2018-09-14] VITALS: Ht 172.7 cm; Wt 97.7 kg
--- NOTE | ~2018-09-14 | HEMODYNAMI ---
PATIENT:LETA GARCIA JR MEDICAL RECORD: [id number] : 65 LOCATION:D.[facility] ADMISSION DATE: 09/14/18 Generatedon:09/14/201812:58 Patient name: LETA GARCIA Patient #: [id number] SSN: : 1965 Date of study: 09/14/2018 Page: Of Hemodynamic Procedure Report Patient Data Patient Demographics Procedure consent was obtained First Name: LETA Gender: Male Last Name: RADHA Suffix: Jr Ruano Initial: ANGELINA : 1965 Patient #: [id number] Age: 53 year(s) Race: Additional ID: [id number] Contact details Address: [address] [address] State: [place] City: [place] Zip code: [address] Past Medical History Allergies: No known allergies Admission Admission Data Admission Date: 09/14/2018 Admission Time: 9:23 Admit Source: Other Lab Results Lab Result Date: 09/14/2018 Lab Result Time: 0:00 Biochemistry Name Units Result Min Max BUN mg/dl 20 --(----)*- 7 18 Creatinine mg/dl 1 --(--*-)-- 0.6 1.3 CBC Name Units Result Min Max Hemoglobin g/dl 13.1 -*(----)-- 13.5 17.5 Procedure Procedure Types Cath Procedure Diagnostic Procedure [facility] w/Coronaries PCI Procedure Coronary Stent Coronary Stent Initial x2 PTCA PTCA Initial Procedure Description Procedure Date Procedure Date: 09/14/2018 Procedure Start Time: 12:35 Procedure End Time: 12:54 Procedure Staff Name Function Benson Davila MD Performing Physician Rafa Ruggiero RT Monitor Helder Christensen RT Scrub Sondra Dasilva RN Nurse Isaac Bailey MD Additional personnel Procedure Data Cath Procedure Fluoroscopy Diagnostic fluoroscopy Total fluoroscopy Time: 4.4 time: 4.4 min min Diagnostic fluoroscopy Total fluoroscopy dose: 381 dose: 381 mGy mGy Contrast Material Contrast Material Type Amount (ml) Isovue 300 101 Entry Location Entry Primary Successful Side Size Upsize Upsize Entry Closure Succes sful Closure Location (Fr) 1 (Fr) 2 (Fr) Remarks Device Remarks Femoral Right 6 Fr Exoseal artery Short Diagnostic catheters Device Type Used For End Catheter Placement MULTIPACK Pigtail 5 Fr LV Angiography catheter MULTIPACK JL 4.0 5Fr Left Coronary catheter Angiography MULTIPACK 3DRC 5Fr Right Coronary catheter Angiography Procedure Complications No complications Procedure Medications Medication Administration Route Dosage 0.9% NaCl I.V. 100 ml/hr Oxygen etCO2 Nasal cannula 2 l/min Lidocaine 2% added to field 20 Heparin Flush Bag added to field 2 bags (1000units/500ml NS) Refer to Anesthesia Notes for Sedation Medications Heparin Bolus I.V. 4000 units Hemodynamics Rest HGB: 13.1 (g/dl) Heart Rate: 59 (bpm) Snapshots Pre Cath Intra NCS Post Cath Vital Signs Time Heart Resp SPO2 etCO2 NIBP (mmHg) Rhythm Pain Sedation Rate (ipm) (%) (mmHg) Status Level (bpm) 12:07:10 59 14 100 15.9 122/76(100) NSR 0 (11) 10(A) , No pain 12:11:33 59 13 99 15.1 121/69(101) NSR 0 (11) 10(A) , No pain 12:15:52 60 12 99 15.1 122/72(98) NSR 0 (11) 10(A) , No pain 12:20:13 59 15 100 15.1 109/76(96) NSR 0 (11) 10(A) , No pain 12:24:37 60 12 99 13.7 125/55(100) NSR 0 (11) 10(A) , No pain 12:28:57 60 12 100 19 125/71(97) NSR 0 (11) 10(A) , No pain 12:33:19 59 10 100 21.5 125/73(91) NSR 0 (11) 5(A) , No pain 12:38:24 64 11 97 10.6 111/71(95) NSR 0 (11) 5(A) , No pain 12:42:42 66 19 98 20 124/70(97) NSR 0 (11) 5(A) , No pain 12:47:07 68 21 97 12.1 123/69(95) NSR 0 (11) 5(A) , No pain 12:51:21 68 16 99 4.5 121/70(93) NSR 0 (11) 5(A) , No pain Medications Time Medication Route Dose Verified Delivered Reason Notes Effectiveness by by 12:13:43 0.9% NaCl I.V. 100 Benson Sondra used for ml/hr Giovanni Dasilva battery installer 12:13:51 Oxygen etCO2 2 Benson Sondra used for Nasal l/min Giovanni Dasilva procedure cannula RN 12:13:57 Lidocaine 2% added 20ml Bensonmaricruz Knowles for local to vial Giovanni Davila MD anesthetic field 12:14:02 Heparin Flush added 2 Benson Benson used for Bag to bags Giovanni Davila MD procedure (1000units/500ml field NS) 12:14:07 Refer to Benson Knowles Anesthesia Notes Giovanni Davila MD for Sedation Medications 12:41:53 Heparin Bolus I.V. 4000 Benson Laurentyla for verif ied units Giovanni Dasilva anticoagulation with Dr. ILSA Davila Procedure Log Time Note 11:58:25 Admit Source: Other 11:58:45 Diagnostic Cath status Elective 11:58:47 Sondra Dasilva RN sent for patient. Start room use. 11:58:49 Time tracking: Regular hours (M-F 7:00 - 5:00) 11:58:53 Plan of Care:Hemodynamics will remain stable., Cardiac rhythm will remain stable., Comfort level will be maintained., Respiratory function will remain adequate., Patient/ family verbilizes understanding of procedure., Procedure tolerated without complication., Recovers from procedure without complications.. 11:58:59 Patient received from Pre/Post Procedure Room to CCL 3 Alert and oriented. Tansferred to table in Supine position. 11:59:00 Warm blankets applied, and yolanda hugger turned on for patient comfort. 11:59:00 Correct patient and procedure confirmed by team. 11:59:01 Signed procedure consent form obtained from patient. 12:02:01 ECG and BP/O2 sat monitors applied to patient. 12:05:56 Vital chart was started 12:12:29 Baseline sample Acquired. 12:12:32 Rhythm: sinus rhythm 12:12:33 Full Disclosure recording started 12:12:50 H&P Date Dictated: 09/13/2018 Within 30 days and on chart.. 12:12:51 Pre-procedure instructions explained to patient. 12:12:51 Pre-op teaching completed and patient verbalized understanding. 12:12:53 Family in waiting room. 12:12:56 Patient NPO since Midnight. 12:13:01 Is the patient allergic to Iodine/contrast media? No. 12:13:15 Is patient on blood thinner?Yes 12:13:26 ACC The patient was administered the following blood thiners within the last 24 hours: ACCPlavix 12:13:43 0.9% NaCl 100 ml/hr I.V. was administered by Sondra Dasilva RN; used for procedure; 12:13:51 Oxygen 2 l/min etCO2 Nasal cannula was administered by Sondra Dasilva RN; used for procedure; 12:13:57 Lidocaine 2% 20ml vial added to field was administered by Benson Davila MD; for local anesthetic; 12:14:02 Heparin Flush Bag (1000units/500ml NS) 2 bags added to field was administered by Benson Davila MD; used for procedure; 12:14:07 Refer to Anesthesia Notes for Sedation Medications was administered by Benson Davila MD; ; 12:15:03 Patient diabetic? No. 12:15:05 ----Pre-sedation anethsthesia assessment.---- 12:15:07 Previous problem with sedation/anesthesia? No ? 12:15:30 Snore? Yes 12:15:32 Sleep apnea? No 12:15:34 Deviated septum? Yes 12:15:35 Opens mouth fully? Yes 12:15:36 Sticks out tongue? Yes 12:15:39 Airway obstruction? No ? 12:17:26 Dentures? Yes in tight 12:17:32 Pre procedure: right dorsailis pedis pulse 2+ Normal; easily identifiable; not easily obliterated 12:17:37 Patient pain scale 0/10 ?. 12:17:42 IV patent on arrival in right antecubital with 0.9% NaCl at 10ml/hr. 12:26:30 Lab Result : BUN 20 mg/dl 12:26:30 Lab Result : Creatinine 1 mg/dl 12:26:30 Lab Result : Hemoglobin 13.1 g/dl 12::49 Lab results completed and on chart. 12::51 Right groin area was prepped with chlora-prep and draped in sterile fashion 12::52 Alarms reviewed by R. N. 12::53 Sharps counted by scrub and verified by R.N. 12:33:37 Physician arrived 12:33:43 --------ALL STOP TIME OUT------ 12:33:44 Final Timeout: patient, procedure, and site verified with staff and physician. All members of the team are in agreement. 12:33:45 Right groin site verified by team. 12:33:50 Physical assessment completed. ASA score P 3 - A patient with severe systemic disease as per Benson Davila MD. 12:33:55 Sedation plan: TIVA Medication:Propofol 12:33:59 Isaac Bailey MD present and monitoring patient for TIVA. 12:34:03 Use device set Femoral Dx 12:34:04 ACIST Syringe (89594) opened to sterile field. 12:34:04 Bag Decanter (2002S) opened to sterile field. 12:34:04 Medline Cath Pack ([id number]) opened to sterile field. 12:34:05 DIAGNOSTIC WIRE .035 260cm J wire (875496) opened to sterile field. 12:34:06 ACIST Hand Control (65711) opened to sterile field. 12:34:06 ACIST Manifold (38347) opened to sterile field. 12:34:07 DIAGNOSTIC Multipack 5Fr catheter set (DI5205) opened to sterile field. 12:34:07 Tegaderm 4 x 4 (1626W) opened to sterile field. 12:34:09 SHEATH 5FR [place] (XLZ455) opened to sterile field. 12:34:12 Procedure started. 12:35:30 SHEATH 6FR [place] (WMM330) opened to sterile field. 12:35:38 Local anesthetic to right femoral artery with Lidocaine 2% by Benson Davila MD.INITIAL ACCESS ONLY 12:35:46 A 6 Fr Short sheath was inserted into the Right Femoral artery 12:35:48 Zero performed for pressure channel P1 12:37:49 A MULTIPACK Pigtail 5 Fr catheter was advanced over the wire and used for LV Angiography. 12:37:52 LV angiography performed. 12:37:54 LV gram done using PEREZ 12:38:04 EF : 50 % 12:38:07 Catheter removed. 12:38:35 A MULTIPACK JL 4.0 5Fr catheter was advanced over the wire and used for Left Coronary Angiography. 12:38:39 LCA angiography performed. 12:39:12 CHOICE PT Extra Support 182cm wire ([id number]) opened to sterile field. 12:39:12 INFLATOR Merit BasixCompak (KG8663) opened to sterile field. 12:39:21 Catheter removed. 12:39:26 A MULTIPACK 3DRC 5Fr catheter was advanced over the wire and used for Right Coronary Angiography. 12:39:30 RCA angiography performed. 12:41:53 Heparin Bolus 4000 units I.V. was administered by Sondra Dasilva RN; for anticoagulation; verified with Dr. Davila 12:42:27 CHOICE PT Extra Support 182cm wire ([id number]) opened to sterile field. 12:42:35 GUIDE 6FR XBLAD 4.0 catheter ([id number]) opened to sterile field. 12:42:41 Catheter removed. 12:42:50 6 Fr XBLAD 4 guide catheter was inserted over the wire 12:42:54 CPTES wire advanced. 12:44:37 Place stent Inflation Number: 1 A ZAID RX 2.5 x 18 stent ([id number]) was prepped and advanced across the Mid LAD. The stent was deployed at 21 ALEXANDRE for 0:14 (min:sec). 12:44:47 Stent catheter was removed intact over wire. 12:44:54 CPTES wire advanced. 12:44:59 CX 12:47:27 Procedure type changed to Cath procedure, Diagnostic procedure, LHC, LHC w/Coronaries, PCI procedure, Coronary Stent, Coronary Stent Initial x2, PTCA, PTCA Initial 12:47:56 Place stent Inflation Number: 1 A ZAID RX 4.0 x 08 stent ([id number]) was prepped and advanced across the Prox CX. The stent was deployed at 21 ALEXANDRE for 0:12 (min:sec). 12:48:19 Stent catheter was removed intact over wire. 12:48:20 Wire removed. 12:48:24 CX 12:50:36 Inflation number: 1 The stent balloon was then re-inflated across the LMCA to 21 ALEXANDRE for 0:08 (min:sec). 12:51:26 Stent catheter was removed intact over wire. 12:51:27 Wire removed. 12:51:27 Guide catheter removed. 12:51:50 EXOSEAL 6Fr (EX600) opened to sterile field. 12:52:01 Sheath removed intact; hemostasis achieved with Exoseal to the Right Femoral artery. 12:52:03 Procedure ended.(Physican Out) 12:52:50 Fluoroscopy dose: 381 mGy 12:52:50 Flurop Dose total: 381 12:53:04 Contrast amount:Isovue 300 101ml. 12:53:11 Fluoroscopy time 04.40 minutes. 12:53:13 Sharps counted by scrub and verified by R.N. 12:53:15 Insertion/operative site no bleeding no hematoma. 12:53:18 Post-op/insertion site Right Femoral artery dressed using a 4 x 4 and Tegaderm. 12:53:21 Post right femoral artery:stable 12:53:23 Post Procedure Pulses reassessed and unchanged 12:53:25 Post procedure: right dorsailis pedis pulse 2+ Normal; easily identifiable; not easily obliterated. 12:53:37 Post procedure rhythm: sinus rhythm 12:53:39 Post procedure instruction explained to patient.Patient verbalizes understanding. 12:53:40 Procedure and supply charges have been captured, reviewed, submitted and are correct. 12:54:09 Procedure Complication : No complications 12:54:11 Vital chart was stopped 12:54:11 See physician's report for complete and final results. 12:54:14 Report given to Pre/Post Procedure Room. 12:54:19 Patient transfered to Pre/Post Procedure Room with Stretcher. 12:54:22 Procedure ended. 12:54:22 Full Disclosure recording stopped 12:54:29 End room use (Document Last) Intervention Summary Intervention Notes Time ActionType Lesion and Equipment Used Action# Pressure Duration Attributes 12:44:37 Place stent Mid LAD ZAID RX 2.5 x 1 21 00:14 18 stent ([id number]) 12:47:56 Place stent Prox CX ZAID RX 4.0 x 1 21 00:12 08 stent ([id number]) 12:50:36 Reinflate LMCA ZAID RX 2.5 x 1 21 00:08 stent 18 stent balloon ([id number]) Device Usage Item Name Manufacture Quantity Catalog Number Hospital Part Current M inimal Lot# / Charge Number Stock Stock Serial# Code ACIST Syringe Acist 1 34845 899127 151201 108935 2 0 (33725) Medical Systems Inc Bag Decanter Microtek 1 584029 62129 802101 5 () Medical Inc. Medline Cath Medline 1 [id number] 835156 35589 514327 5 Pack ([id number]) DIAGNOSTIC St Rd 1 745411 710713 553785 412647 3 0 WIRE .035 260cm J wire (816249) ACIST Hand Acist 1 07760 966084 625900 657286 5 Control Medical (44966) Systems Inc ACIST Manifold Acist 1 38375 100134 766008 332138 5 (69024) Medical Systems Inc DIAGNOSTIC Cardinal 1 JF8480 019244 01639 721201 3 0 Multipack 5Fr Health catheter set (NI7099) Tegaderm 4 x 4 3M 1 1626W 522584 376170 255197 5 (1626W) SHEATH 5FR Terumo 1 OID031 878948 292282 245587 5 [place] (NHV468) SHEATH 6FR Terumo 1 YCC430 763846 117394 591906 4 0 [place] (XQL187) MULTIPACK Cardinal 1 607047 5 Pigtail 5 Fr Health catheter MULTIPACK JL Cardinal 1 325483 5 4.0 5Fr Health catheter CHOICE PT [place] 2 [id number] 596466 704573 773390 5 Extra Support Scientific 182cm wire ([id number]) INFLATOR Merit Merit 1 MO1438 670712 914194 308793 1 5 [place] Free Classifieds (GH0023) MULTIPACK 3DRC Cardinal 1 483234 5 5Fr catheter Health GUIDE 6FR Cardinal 1 [id number] 566164 066357 247550 3 XBLAD 4.0 Health catheter ([id number]) ZAID RX 2.5 x Medtronic 1 [id number] 332611 0216519 519710 5 [id number] 18 stent ([id number]) ZAID RX 4.0 x Medtronic 1 [id number] 278726 9494854 624755 5 [id number] 08 stent ([id number]) EXOSEAL 6Fr Cardinal 1 EX600 103503 831688 094638 1 0 (EX600) Health Signature Audit [place] Stage Time Signature Unsigned Intra-Procedure 09/14/2018 Rafa Ruggiero RT(R) 12:58:43 PM Signatures Monitor : Rafa Ruggiero RT Signature : Date : Time : [address] [place] [address]
[2018-09-14 09:53] VITALS: BP 127/72; Ht 172.7 cm; Wt 97.7 kg
[2018-09-14 10:00] LABS: BASOPHILS 0.5 % (0-2); EOSINOPHILS 6.2 % (0-7); HEMOGLOBIN 13.1 g/dL (13.5-17.5); IMMATURE GRANULOCYTES 1.2 % (0-5); LYMPHOCYTES 35.2 % (15-50); MCH 30.7 pg (26.0-34.0); MCHC 33.6 g/dL (31.0-37.0); MCV 91.3 fL (80.0-100.0); MEAN PLATELET VOLUME 10.3 fL (7.4-10.4); MONOCYTES 7.2 % (2-11); NEUTROPHILS 49.7 % (40-80); PLATELET COUNT 213 10x3/uL (130-400); RBC 4.27 10x6/uL (4.20-6.10)
[2018-09-14 10:09] LABS: CALC OSMOLALITY 281 mosm/kg (275-300); CALCIUM 9.2 mg/dL (8.5-10.1); CARBON DIOXIDE 27.2 mmol/L (21.0-32.0); CHLORIDE - SERUM 98 mmol/L (98-107); POTASSIUM - SERUM 5.3 mmol/L (3.5-5.1); SODIUM 134 mmol/L (136-145); UREA NITROGEN 20 mg/dL (7-18); eGFR NON AFRICAN AMERICAN 83 mL/min (90-120)
[2018-09-14 10:12] LABS: GLUCOSE 291 mg/dL (74-106)
--- NOTE | 2018-09-14 13:25 | NUR ---
PATIENT EATING SANDWICH. VSS ON 2L NASAL CANNULA. RIGHT GROIN DRESSING IS CDI, NO S/S OF BLEEDING OR HEMATOMA. NO N/V. PRN PAIN MEDICATION GIVEN PER PATIENT REQUEST.
--- NOTE | 2018-09-14 13:55 | NUR ---
PATIENT AWAKE, VSS ON ROOM AIR. RIGHT GROIN DRESSING IS CDI, NO S/S OF BLEEDING OR HEMATOMA. PATIENT STATES THAT PAIN IS A 4 NOW, COMPARED TO A 6 EARLIER.
--- NOTE | 2018-09-14 14:25 | NUR ---
PATIENT RESTING. VSS ON ROOM AIR. RIGHT GROIN DRESSING IS CDI, NO S/S OF BLEEDING OR HEMATOMA. NO C/O PAIN, NUMBNESS, OR TINGLING. NO N/V.
--- NOTE | 2018-09-14 14:40 | NUR ---
PATIENT TRANSPORTED VIA WHEELCHAIR TO CAR WITH SPOUSE DRIVING, ALL BELONGINGS WITH PATIENT.
--- NOTE | 2018-09-14 14:55 | NUR ---
PATIENT INTERMITTENTLY RESTING. VSS ON ROOM AIR. RIGHT GROIN DRESSING IS CDI, NO S/S OF BLEEDING OR HEMATOMA. NO C/O PAIN, NUMBNESS, OR TINGLING.
--- NOTE | 2018-09-14 15:55 | NUR ---
PATIENT AWAKE, HEAD OF BED ELEVATED TO 30 DEGREES. RIGHT GROIN DRESSING IS CDI, NO S/S OF BLEEDING OR HEMATOMA.
--- NOTE | 2018-09-14 16:25 | NUR ---
HEAD OF BED ELEVATED TO 90 DEGREES. RIGHT GROIN DRESSING IS CDI, NO S/S OF BLEEDING OR HEMATOMA. IV REMOVED. EDUCATION GIVEN TO PATIENT REGARDING DISCHARGE INSTRUCTIONS AND MEDICATIONS, ALL QUESTIONS ANSWERED. VSS ON ROOM AIR.
--- NOTE | 2018-09-14 16:50 | NUR ---
PATIENT TRANSPORTED VIA WHEELCHAIR TO CAR WITH SPOUSE DRIVING, ALL BELONGINGS WITH PATIENT.
--- NOTE | 2018-09-21 12:11 | OP ---
PATIENT NAME: LETA GARCIA JR MEDICAL RECORD: [id number] :65 LOCATION:D.[facility] ADMISSION DATE: SURGEON: JANELL PETTIT MD DATE OF OPERATION: 09/14/2018 PROCEDURES: 1. PTCA stent LAD. 2. PTCA stent left circumflex. 3. PTCA left main. 4. Left heart catheterization. 5. Selective coronary angiography. 6. Left ventriculogram. INDICATION: Angina and coronary artery disease. PROCEDURE IN DETAIL: After informed consent was obtained and after a detailed description of risks, benefits as well as alternative therapies, the patient elected to proceed with angiogram and angioplasty. The right femoral area was prepped and draped in normal sterile fashion. Right femoral artery was cannulated via modified Seldinger technique with placement of 6-Setswana sheath. All catheters exchanged through this sheath. FINDINGS: The left ventriculogram was performed in standard 30-degree PEREZ view, reveals good cardiac wall motion throughout all segments. Overall ejection fraction estimated at 60%. SELECTIVE CORONARY ANGIOGRAPHY: 1. Left main is with no significant angiographic disease. 2. Left anterior descending has previously placed stents with 95% in-stent restenosis in the mid vessel. 3. Left circumflex has previously placed stents with 80% restenosis at the ostium. 4. The right coronary has previously placed stents, these are widely patent with no significant restenosis. No disease elsewise of the RCA or its branches. PTCA STENT OF THE LAD: The stent used 2.5 x 18 mm Zack. Result was 0% residual stenosis. PTCA STENT OF THE LEFT CIRCUMFLEX: The stent used was a 4.0 x [address] [place]. This caused a plaque shift into the left main. Left main was ballooned with a 2.5 mm balloon. Result was 0% residual throughout. OVERALL IMPRESSION: Successful percutaneous transluminal coronary angioplasty stent of the left anterior descending and circumflex, both going from 80% to 95% initial stenosis to 0% residual. TRANSINT:[id number] Voice Confirmation ID: [id number] DOCUMENT ID: [id number] OPERATIVE REPORT [id number] LETA GARCIA JR, JEFFREY MD at 1211 CC: [id number] DICTATION DATE: 09/14/18 1257 HOSIERY REPAIRER: 09/14/18 1451 DEP CLI 09/14/18 [facility] [address] [place] [address]
== END 2018-09-14 16:50 | disposition home or self-care (01) ==
LOC: D.CATH 09:23
PROVIDERS: Internal Medicine Interventional Cardiology
DX: I25.110 Atherosclerotic heart disease of native coronary artery with unstable angina pectoris (principal)

== ENCOUNTER → 2018-12-24 08:27 | Outpatient (CLI) | payer MEDICAID ==
[2018-09-14 09:53] VITALS: BMI 32.7
== END | disposition home or self-care (01) ==
LOC: D.MRI 11-21 10:30
PROVIDERS: ATTEND Clinical Nurse Specialist Family Health
DX: M79.672 Pain in left foot (principal)

== ENCOUNTER → 2019-04-12 13:01 | Outpatient (CLI) | payer MEDICAID ==
[2018-09-14 09:53] VITALS: BMI 32.7
[~2019-04-12 13:01] MED LIST changes: +KEFLEX500 MG PO; +TYLENOL W/CODEI1 TAB PO
== END | disposition home or self-care (01) ==
LOC: D.US 13:01
PROVIDERS: ATTEND Orthopaedic Surgery
DX: I73.9 Peripheral vascular disease, unspecified (principal)

== ENCOUNTER → 2019-04-16 13:08 | Outpatient (CLI) | payer MEDICAID ==
[2018-09-14 09:53] VITALS: BMI 32.7
== END | disposition home or self-care (01) ==
LOC: D.MRI 13:08
PROVIDERS: ATTEND Orthopaedic Surgery
DX: M54.16 Radiculopathy, lumbar region (principal)

== ENCOUNTER 2019-04-22 21:13 | Emergency (ER) | payer MEDICAID ==
[~2019-04-22] VITALS: Ht 172.7 cm; Wt 90.9 kg
[~2019-04-22 21:13] MED LIST changes: -KEFLEX500 MG PO; -TYLENOL W/CODEI1 TAB PO
[2019-04-22 21:21] VITALS: Ht 172.7 cm; Wt 90.9 kg
[2019-04-22] MEDS ORDERED: TYLENOL W/CODEI1 TAB PO (22:11)
[2019-04-22] MEDS ORDERED: KEFLEX500 MG PO (22:11)
[2019-04-22 23:04] VITALS: BP 141/98
== END 2019-04-22 23:09 | disposition home or self-care (01) ==
LOC: D.ER 21:13
DX: S91.202A Unspecified open wound of left great toe with damage to nail, initial encounter (principal); X58.XXXA Exposure to other specified factors, initial encounter; Y93.89 Activity, other specified; Y92.89 Other specified places as the place of occurrence of the external cause; S90.112A Contusion of left great toe without damage to nail, initial encounter

== ENCOUNTER 2019-05-01 10:31 | Emergency (ER) | payer MEDICAID ==
[~2019-05-01] VITALS: Ht 172.7 cm; Wt 90.9 kg
[~2019-05-01 10:31] MED LIST changes: +KEFLEX500 MG PO; +TYLENOL W/CODEI1 TAB PO
[2019-05-01 10:40] VITALS: Ht 172.7 cm; Wt 90.9 kg
[2019-05-01 13:15] VITALS: BP 120/86
== END 2019-05-01 13:15 | disposition home or self-care (01) ==
LOC: D.ER 10:31
DX: S93.401A Sprain of unspecified ligament of right ankle, initial encounter (principal); X58.XXXA Exposure to other specified factors, initial encounter

== ENCOUNTER 2019-06-09 05:31 | Observation (INO) | payer MEDICAID ==
[~2019-06-09] VITALS: Ht 172.7 cm; Wt 90.9 kg
--- NOTE | ~2019-06-09 | HEMODYNAMI ---
PATIENT:LETA GARCIA JR MEDICAL RECORD: [id number] : 65 LOCATION:[facility] D2120 ADMISSION DATE: 06/09/19 Generatedon:06/10/201912:57 Patient name: LETA GARCIA Patient #: [id number] SSN: [id number] : 1965 Date of study: 06/10/2019 Page: Of Hemodynamic Procedure Report Patient Data Patient Demographics Procedure consent was obtained First Name: LETA Gender: Male Last Name: RADHA Suffix: Jr Ruano Initial: ANGELINA : 1965 Patient #: [id number] Age: 54 year(s) Race: SSN: [id number] Additional ID: [id number] Contact details Address: [place] [address] State: [place] City: [place] Zip code: [address] Past Medical History Allergies: No known allergies Admission Admission Data Admission Date: 06/09/2019 Admission Time: 6:59 Arrival Date: 06/10/2019 Arrival Time: 0:00 Room #: D.2120 Insurance Payor: Medicaid [facility] #: [id number] Height (in.): 68 BSA: 2.04 (m2) Height (cm.): 172.72 BMI: 30.41 (kg/m2) Weight (lbs.): 200 Weight (kg.): 90.72 Lab Results Lab Result Date: 06/10/2019 Lab Result Time: 0:00 Biochemistry Name Units Result Min Max BUN mg/dl 18 --(---*)-- 7 18 Creatinine mg/dl 1 --(--*-)-- 0.6 1.3 eGFR ml/min 82.43218 -*(----)-- 90 120 NONAFRICAN CBC Name Units Result Min Max Hemoglobin g/dl 10.3 *-(----)-- 13.5 17.5 Procedure Procedure Types Cath Procedure Diagnostic Procedure LHC LHC w/Coronaries PCI Procedure Coronary Stent Coronary Stent Initial Procedure Description Procedure Date Procedure Date: 06/10/2019 Procedure Start Time: 12:34 Procedure End Time: 12:48 Procedure Staff Name Function Angelina Perez TRACI Additional personnel Benson Davila MD Performing Physician Alayna Cowart RT Monitor Yareli Lau RT Monitor Sondra Dasilva RN Nurse Faiza Matias RT Scrub Procedure Data Cath Procedure Fluoroscopy Diagnostic fluoroscopy Total fluoroscopy Time: 2.4 time: 2.4 min min Diagnostic fluoroscopy Total fluoroscopy dose: 600 dose: 600 mGy mGy Contrast Material Contrast Material Type Amount (ml) Isovue 300 76 Entry Location Entry Primary Successful Side Size Upsize Upsize Entry Closure Succes sful Closure Location (Fr) 1 (Fr) 2 (Fr) Remarks Device Remarks Femoral Right 5 Fr 6 Fr Exoseal artery Short Estimated blood loss: 10 ml Diagnostic catheters Device Type Used For End Catheter Placement MULTIPACK Pigtail 5 Fr LV Angiography catheter MULTIPACK JL 4.0 5Fr Left Coronary catheter Angiography MULTIPACK 3DRC 5Fr Right Coronary catheter Angiography Procedure Complications No complications Procedure Medications Medication Administration Route Dosage 0.9% NaCl I.V. 100 ml/hr Oxygen etCO2 Nasal cannula 2 l/min Lidocaine 2% added to field 20 Heparin Flush Bag added to field 2 bags (1000units/500ml NS) Heparin Bolus I.V. 4000 units Refer to Anesthesia Notes for Sedation Medications Plavix P.O. 75 mg Hemodynamics Rest BSA: 2.04 (m2) HGB: 10.3 (g/dl) O2 Consumption: Estimated: 243.25 (ml/min) O2 Co nsumption indexed: Estimated:119.24 (ml/min/m) Heart Rate: 71 (bpm) Snapshots Pre Cath Intra NCS Post Cath Vital Signs Time Heart Resp SPO2 etCO2 NIBP (mmHg) Rhythm Pain Sedation Rate (ipm) (%) (mmHg) Status Level (bpm) 12:17:14 69 12 100 39.4 134/84(98) NSR 0 (11) 10(A) , No pain 12:21:29 68 20 100 41.7 140/87(100) NSR 0 (11) 10(A) , No pain 12:25:51 67 18 100 37.2 130/74(96) NSR 0 (11) 10(A) , No pain 12:30:04 71 13 100 38 131/76(105) NSR 0 (11) 10(A) , No pain 12:34:19 71 14 100 34.2 130/80(105) NSR 0 (11) 5(A) , No pain 12:38:22 72 16 99 38 116/87(112) NSR 0 (11) 5(A) , No pain 12:43:17 74 18 97 40.2 132/77(107) NSR 0 (11) 5(A) , No pain 12:47:29 75 18 98 38.7 124/79(101) NSR 0 (11) 10(A) , No pain Medications Time Medication Route Dose Verified Delivered Reason Notes Effectiveness by by 12:16:16 0.9% NaCl I.V. 100 Benson Sondra used for ml/hr Giovanni Dasilva drying machine operator package yarns 12:16:22 Oxygen etCO2 2 Benson Sondra used for Nasal l/min Giovanni Dasilva procedure cannula RN 12:16:28 Refer to Benson Knowles for sedation Anesthesia Notes Giovanni Davila MD for Sedation Medications 12:16:29 Lidocaine 2% added 20ml Benson Knowles for local to vial Giovanni Davila MD anesthetic field 12:16:32 Heparin Flush added 2 Benson Knowles used for Bag to bags Giovanni Davila MD procedure (1000units/500ml field NS) 12:39:03 Heparin Bolus I.V. 4000 Benson Knowles for verif ied units Giovanni Davila MD anticoagulation with Dr. Davila 12:41:01 Plavix P.O. 75 mg Benson Amaro for Giovanni Dasilva antiplatelet RN therapy Procedure Log Time Note 12:04:16 Informed consent obtained and on chart 12:04:52 Diagnostic Cath Status : Urgent 12:05:10 Procedure Status Urgent Heart Cath (IP). 12:05:15 Yareli Lau RT(R) sent for patient. Start room use. 12:05:18 Time tracking: Regular hours (M-F 7:00 - 5:00) 12:05:25 Plan of Care:Hemodynamics will remain stable., Cardiac rhythm will remain stable., Comfort level will be maintained., Respiratory function will remain adequate., Patient/ family verbilizes understanding of procedure., Procedure tolerated without complication., Recovers from procedure without complications.. 12:05:52 ACC Patient presents with Unstable Angina CCS Anginal Class 4--Inability to carry out any physical activity w/o angina. Angina may occur at rest. 12:06:27 ACCPatient has been prescribed/administered the following anti-anginal medication within the last 2 weeks: Beta Randi, JOHN-Inhibitor 12:06:49 Arrival Date: 06/10/2019 12:00:00 AM 12:07:04 Insurance Payor : Medicaid 12:07:52 Patient Height : 68 inches 12:08:00 Patient Weight : 200 lbs 12:08:42 Lab Result : eGFR NONAFRICAN 82.69291 ml/min 12:08:42 Lab Result : Hemoglobin 10.3 g/dl 12::42 Lab Result : BUN 18 mg/dl 12:08:42 Lab Result : Creatinine 1 mg/dl 12:12:45 Patient received from Med II to CCL 1 Alert and oriented. Tansferred to table in Supine position. 12:12:47 Correct patient and procedure confirmed by team. 12:12:47 Warm blankets applied, and yolanda hugger turned on for patient comfort. 12:16:07 Vital chart was started 12:16:16 0.9% NaCl 100 ml/hr I.V. was administered by Sondra Dasilva RN; used for procedure; Verbal order read back and verified. 12:16:22 Oxygen 2 l/min etCO2 Nasal cannula was administered by Sondra Dasilva RN ; used for procedure; Verbal order read back and verified. 12:16:28 Refer to Anesthesia Notes for Sedation Medications was administered by Benson Davila MD; for sedation; Verbal order read back and verified. 12:16:29 Lidocaine 2% 20ml vial added to field was administered by Benson Davila MD; for local anesthetic; Verbal order read back and verified. 12:16:32 Heparin Flush Bag (1000units/500ml NS) 2 bags added to field was administered by Benson Davila MD; used for procedure; Verbal order read back and verified. 12:17:57 ECG and BP/O2 sat monitors applied to patient. 12:18:05 Baseline sample Acquired. 12:18:11 Rhythm: sinus rhythm 12:18:14 Full Disclosure recording started 12:18:15 - 12:18:22 H&P Date Dictated: 06/10/2019 Within 30 days and on chart.. 12:18:24 Pre-procedure instructions explained to patient. 12:18:25 Pre-op teaching completed and patient verbalized understanding. 12:18:31 Family in patients room. 12:18:34 Patient NPO since Midnight. 12:18:46 Patient allergic to No known allergies 12:19:08 Is the patient allergic to Iodine/contrast media? No. 12:19:12 Was the patient premedicated? Yes 12:19:14 Is patient on blood thinner?Yes 12:19:18 Patient diabetic? Yes. 12:19:21 If diabetic: On Metformin? Yes 12:19:29 If on Metformin: Last Dose? 06/08/2019 12:19:33 ----Pre-sedation anethsthesia assessment.---- 12:19:38 Previous problem with sedation/anesthesia? No ? 12:19:40 Snore? Yes 12:19:42 Sleep apnea? No 12:19:44 Deviated septum? No 12:19:46 Opens mouth fully? Yes 12:19:48 Sticks out tongue? Yes 12:19:54 Airway obstruction? Yes asthma 12:20:07 Dentures? Yes in tight 12:20:15 Pre procedure: right dorsailis pedis pulse 2+ Normal; easily identifiable; not easily obliterated 12:20:19 Pre procedure: left dorsailis pedis pulse 2+ Normal; easily identifiable; not easily obliterated 12:20:28 Patient pain scale 0/10 ?. 12:20:34 Angelina Perez CRNA present and monitoring patient for TIVA. 12:20:54 IV patent on arrival in right antecubital with 0.9% NaCl at [facility]. 12:21:05 Lab results completed and on chart. 12:21:12 Risk of Mortality: 1.3 12:21:17 Risk of blood transfusion: 3.1 12:21:22 Risk of JENNIFER: 1.2 12:21:27 Right groin area was prepped with chlora-prep and draped in sterile fashion 12:21:30 Sharps counted by scrub and verified by SandyN. 12:21:30 Alarms reviewed by R. N. 12:21:35 Use device set Femoral Dx 12:21:38 Bag Decanter (2002S) opened to sterile field. 12:21:38 ACIST Syringe (31746) opened to sterile field. 12:21:39 Medline Cath Pack ([id number]) opened to sterile field. 12:21:41 ACIST Hand Control (80232) opened to sterile field. 12:21:42 ACIST Manifold (08811) opened to sterile field. 12:21:43 DIAGNOSTIC Multipack 5Fr catheter set (DL0992) opened to sterile field. 12:21:44 Tegaderm 4 x 4 (1626W) opened to sterile field. 12:21:49 SHEATH 5FR Rocklin (LOI407) opened to sterile field. 12:21:50 EMERALD Guide Wire (487-377) opened to sterile field. 12:32:19 Physician arrived 12:32:21 --------ALL STOP TIME OUT------ 12:32:22 Final Timeout: patient, procedure, and site verified with staff and physician. All members of the team are in agreement. 12:32:25 Right groin site verified by team. 12:32:31 Fire Safety Assessment: A--An alcohol-based skin anteseptic being used preoperatively., C--Open oxygen or nitrous oxide is being used., D--An ESU, laser, or fiber-optic light is being used. 12:32:53 Physical assessment completed. ASA score P 3 - A patient with severe systemic disease as per Benson Davila MD. 12:33:00 2) 60-89 Mildly reduced kidney function, and other findings (as for stage 1) point to kidney disease. 12:33:06 Maximum allowable contrast dose (3.7 X eGFR X 0.75)230 ml. 12:34:00 Sedation plan: TIVA Medication:Propofol 12:34:09 Procedure started. 12:34:14 Local anesthetic to right femoral artery with Lidocaine 2% by Benson Davila MD.INITIAL ACCESS ONLY 12:34:54 A 5 Fr sheath was inserted into the Right Femoral artery 12:34:59 Zero performed for pressure channel P1 12:35:30 A MULTIPACK Pigtail 5 Fr catheter was advanced over the wire and used for LV Angiography. 12:35:33 LV gram done using PEREZ 12:35:39 Injector settings: Ml/sec: 10, Volume: 20, 12:35:50 EF : 60 % 12:35:54 Catheter removed. 12:36:02 A MULTIPACK JL 4.0 5Fr catheter was advanced over the wire and used for Left Coronary Angiography. 12:36:12 LCA angiography performed. 12:37:07 Catheter removed. 12:37:23 INFLATOR Merit BasixCompak (SG6808) opened to sterile field. 12:37:32 CHOICE PT Extra Support 182cm wire ([id number]) opened to sterile field. 12:37:40 SHEATH 6FR Rocklin (STG422) opened to sterile field. 12:38:00 Sheath upsized to a 6 Fr Short. 12:38:22 A MULTIPACK 3DRC 5Fr catheter was advanced over the wire and used for Right Coronary Angiography. 12:38:29 RCA angiography performed. 12:38:38 ACCDominant side:Left 12:38:42 Catheter removed. 12:38:54 GUIDE 6FR XBLAD 3.5 catheter ([id number]) opened to sterile field. 12:39:03 Proceeding to intervention. 12:39:03 Heparin Bolus 4000 units I.V. was administered by Benson Davila MD; for anticoagulation; verified with Dr. Davila Verbal order read back and verified. 12:39:15 6 Fr xblad3.5 guide catheter was inserted over the wire 12:39:30 Pre PCI Site: [place] pCirc has 90% stenosis. 12:40:09 choice pt wire advanced. 12:40:52 Wire advanced across lesion. 12:41:01 Plavix 75 mg P.O. was administered by Sondra Dasilva RN; for antiplatele t therapy; Verbal order read back and verified. 12:41:06 ACT drawn and resulted at 255 seconds. (normal therapeutic range 180-24 0 seconds). 12:41:33 Place stent Inflation Number: 1 A ZAID RX 3.5 x 08 stent ([id number]) was prepped and advanced across the Prox CX . The stent was deployed at 23 ALEXANDRE for 0:10 (min:sec) . 12:41:52 Stent catheter was removed intact over wire. 12:41:57 Wire removed. 12:41:58 Guide catheter removed. 12:42:12 EXOSEAL 6Fr (EX600) opened to sterile field. 12:42:33 Sheath removed intact; hemostasis achieved with Exoseal to the Right Femoral artery. 12:42:57 Post PCI Site: [place] pCirc has 0% stenosis. 12:43:02 Procedure ended.(Physican Out) 12:43:29 Fluoroscopy time 02.40 minutes. 12:43:35 Fluoroscopy dose: 600 mGy 12:43:35 Flurop Dose total: 600 12:43:49 Dose Area Product 30549 mGy/cm. 12:44:02 Contrast amount:Isovue 300 76ml. 12:44:07 Maximum allowable dose exceeded? No. 12:44:24 Sharps counted by scrub and verified by R.N. 12:44:28 Insertion/operative site no bleeding no hematoma. 12:44:35 Post-op/insertion site Right Femoral artery dressed using a 4 x 4 and Tegaderm. 12:44:41 Post right femoral artery:stable 12:44:44 Post Procedure Pulses reassessed and unchanged 12:45:14 Post-procedure physical assessment completed. ASA score P 3 - A patient with severe systemic disease as per Benson Davila MD. 12:45:19 Post procedure rhythm: unchanged. 12:45:23 Estimated blood loss: 10 ml 12:45:26 Post procedure instruction explained to patient.Patient verbalizes understanding. 12:45:27 Patient needs reinforcement of post procedure teaching. 12:45:56 Procedure type changed to Cath procedure, Diagnostic procedure, C, C w/Coronaries, PCI procedure, Coronary Stent, Coronary Stent Initial 12:46:00 Procedure and supply charges have been captured, reviewed, submitted an d are correct. 12:47:49 Procedure Complication : No complications 12:48:20 Vital chart was stopped 12:48:24 [facility] Findings: MVD- PCI performed (see procedure note) 12:48:33 Operative report dictated upon procedure completion. 12:48:34 Operative report dictated upon procedure completion. 12:48:35 See physician's report for complete and final results. 12:48:38 Report given to [facility] II. 12:48:43 Patient transfered to [facility] with Bed. 12:48:45 Full Disclosure recording stopped 12:48:45 Procedure ended. 12:48:53 ACC-PCI Only Patient was given prescriptions, or instructed by Benson Davila MD to start/continue the following medications upon discharge: Plavix 12:48:55 End room use (Document Last) Intervention Summary Intervention Notes Time ActionType Lesion and Equipment Used Action# Pressure Duration Attributes 12:41:33 Place stent Prox CX ZAID RX 3.5 x 1 23 00:10 08 stent ([id number]) Device Usage Item Name Manufacture Quantity Catalog Number Hospital Part Current M inimal Lot# / Charge Number Stock Stock Serial# Code ACIST Syringe Acist 1 58771 096176 954511 969536 2 0 (14903) Medical Systems Inc Bag Decanter Microtek 1 2001S 906156 71254 042606 5 () Medical Inc. Medline Cath Medline 1 [id number] 375855 83417 491238 5 Pack ([id number]) ACIST Hand Acist 1 87898 521516 806080 409019 5 Control Medical (15944) Systems Inc ACIST Manifold Acist 1 60488 757607 514572 361954 5 (73364) Medical Systems Inc DIAGNOSTIC Cardinal 1 IT8162 628327 58027 910407 3 0 Multipack 5Fr Health catheter set (WH5577) Tegaderm 4 x 4 3M 1 1626W 282222 474061 743557 5 (1626W) SHEATH 5FR Terumo 1 VOQ920 819408 580646 960553 5 Rocklin (ZIW142) EMERALD Guide Cardinal 1 502-455 857367 663387 980426 5 Wire (502-455) Health MULTIPACK Cardinal 1 034397 5 Pigtail 5 Fr Health catheter MULTIPACK JL Cardinal 1 371575 5 4.0 5Fr Health catheter INFLATOR Merit Merit 1 KH0741 446957 571837 657824 1 5 Onestop Internet (JA3323) CHOICE PT Riner 1 [id number] 784527 431251 892240 5 Extra Support Scientific 182cm wire ([id number]) SHEATH 6FR Terumo 1 WTT946 899377 445306 696832 4 0 Rocklin (NYB829) MULTIPACK 3DRC Cardinal 1 999798 5 5Fr catheter Health GUIDE 6FR Cardinal 1 [id number] 231432 936517 879343 1 0 XBLAD 3.5 Health catheter ([id number]) ZAID RX 3.5 x Medtronic 1 [id number] 713672 5507843 855385 5 [id number] 08 stent ([id number]) EXOSEAL 6Fr Cardinal 1 EX600 046460 044504 170823 1 0 (EX600) Health Signature Audit [place]der Stage Time Signature Unsigned Intra-Procedure 06/10/2019 Alayna 12:50:59 PM Supa RT(R) (CV) Intra-Procedure 06/10/2019 Sondra Dasilva 12:51:34 PM RN Intra-Procedure 06/10/2019 Benson Dasilva RN 12:52:06 PM 06/10/2019 12:55:33 PM Intra-Procedure 06/10/2019 Sondra Dasilva 12:57:03 PM RN Intra-Procedure 06/10/2019 Benson Davila 12:57:25 PM [id number] [place] [address]
[2019-06-09] MEDS ORDERED: NEURONTIN800 MG PO (05:38)
[2019-06-09 05:48] LABS: BASOPHILS 0.5 % (0-2); EOSINOPHILS 4.2 % (0-7); HEMATOCRIT 33.3 % (42.0-54.0); IMMATURE GRANULOCYTES 0.5 % (0-5); LYMPHOCYTES 39.9 % (15-50); MCV 93.8 fL (80.0-100.0); MEAN PLATELET VOLUME 10.1 fL (7.4-10.4); NEUTROPHILS 46.9 % (40-80); PLATELET COUNT 255 10x3/uL (130-400); RBC 3.55 10x6/uL (4.20-6.10); RDW 12.4 % (11.5-14.5); WBC 13.3 10x3/uL (4.8-10.8)
--- NOTE | 2019-06-09 06:00 | NUR ---
PT STATES THAT NITRO DID NOT HELP CHEST PAIN. INFORMED.
[2019-06-09 06:02] LABS: CALC OSMOLALITY 279 mosm/kg (275-300); CALCIUM 8.6 mg/dL (8.5-10.1); CARBON DIOXIDE 25.9 mmol/L (21.0-32.0); CHLORIDE - SERUM 98 mmol/L (98-107); CREATININE - SERUM 1.3 mg/dL (0.6-1.3); GLUCOSE 315 mg/dL (74-106); POTASSIUM - SERUM 4.3 mmol/L (3.5-5.1); SODIUM 132 mmol/L (136-145); UREA NITROGEN 22 mg/dL (7-18); eGFR NON AFRICAN AMERICAN 61 mL/min (90-120)
[2019-06-09 06:11] LABS: INR 0.92 (0.85-1.17); PROTIME 11.9 SECONDS (11.6-15.0)
[2019-06-09 06:19] LABS: ALBUMIN 3.4 g/dL (3.4-5.0); ALKALINE PHOSPHATASE 68 U/L (46-116); ALT (SGPT) 19 U/L (10-68); BILIRUBIN - TOTAL 0.17 mg/dL (0.2-1.3); CKMB 0.5 U/L (0.0-3.6); CREATINE KINASE 35 UL (21-232); MAGNESIUM - SERUM 1.4 mg/dL (1.8-2.4); PROTEIN - SERUM 7.4 g/dL (6.4-8.2); TROPONIN-I < 0.017 ng/mL (0.000-0.060)
--- NOTE | 2019-06-09 07:29 | NUR ---
RECEIVED PT TO ROOM 2119 VIA WHEELCHAIR, PT ABLE TO WALK FROM WHEELCHAIR TO BED USING A CANE. PT A/O X4, RESP EVEN AND NONLABORED ON RA. RT AC IV SL. ORIENTED PT TO ROOM AND CALL LIGHT, WILL ASSESS PT AND START PLAN OF CARE.
[2019-06-09] MEDS ORDERED: HYDROCODON-ACE1 EA10 PO (07:32)
[2019-06-09 07:52] VITALS: BP 144/78
[2019-06-09 07:59] VITALS: BP 144/78; BMI 30.4
--- NOTE | 2019-06-09 09:33 | NUR ---
AM MEDS GIVEN AT THIS TIME. ALSO GAVE NORCO FOR PAIN LEVEL OF 10/10. PT DENIES ANY OTHER NEEDS AT THIS TIME. CALL LIGHT IN REACH, NAD NOTED, WILL CONTINUET O MONITOR.
--- NOTE | 2019-06-09 10:26 | NUR ---
PT RESTING COMFORTABLY IN BED WITH EYES CLOSED,CALL LIGHT IN REACH, NAD NOTED.
[2019-06-09 10:36] VITALS: Ht 172.7 cm; Wt 90.9 kg
[2019-06-09 12:00] VITALS: BP 127/73
--- NOTE | 2019-06-09 13:19 | NUR ---
NORCO GIVEN FOR PAIN LEVEL OF 10/10. PT DENIES ANY OTHER NEEDS AT THIS TIME. CALL LIHGT IN REACH, FAMILY AT BEDSIDE, NAD NOTED, WILL CONTINUE TO MONITOR.
[2019-06-09 15:47] VITALS: BP 138/82
--- NOTE | 2019-06-09 16:46 | NUR ---
COMPLETE LINEN CHANGE DONE PER PT REQUEST, SPILLED SODA IN BED. PT UP AD DARSHAN IN ROOM,DENIES ANY OTHER NEEDS AT THIS TIME. CALL LIGHT IN REACH, NAD NOTED,W ILL CONTINUE TO MONITOR.
--- NOTE | 2019-06-09 17:39 | NUR ---
NORCO GIVEN FOR PAIN LEVEL OF 10/10. PT DENIES ANY OTHER NEEDS AT THIS TIME. CALL LIGHT IN REACH,NAD NOTED.
--- NOTE | 2019-06-09 19:32 | NUR ---
RECEIVED REPORT, WILL ASSUME CARE OF PT, DENIES ANY NEEDS AT THIS TIME, EXPLAIN WILL BE NPO AFTER MIDNIGHT FOR CATH IN AM, BED IS LOW, SRX2, CALL LIGHT IN REACH, WILL CONTINUE PLAN OF CARE
[2019-06-09 20:00] VITALS: BP 125/72
[2019-06-10] VITALS: BP 125/75
--- NOTE | 2019-06-10 04:01 | NUR ---
I have reviewed this patient and I concur with the Shift Assessment completed by the Licensed Practical Nurse today this shift.
[2019-06-10 05:53] LABS: BASOPHILS 0.6 % (0-2); EOSINOPHILS 5.1 % (0-7); HEMATOCRIT 31.5 % (42.0-54.0); HEMOGLOBIN 10.3 g/dL (13.5-17.5); IMMATURE GRANULOCYTES 0.6 % (0-5); LYMPHOCYTES 45.1 % (15-50); MCH 30.2 pg (26.0-34.0); MCHC 32.7 g/dL (31.0-37.0); MCV 92.4 fL (80.0-100.0); MEAN PLATELET VOLUME 10.2 fL (7.4-10.4); MONOCYTES 8.1 % (2-11); NEUTROPHILS 40.5 % (40-80); PLATELET COUNT 235 10x3/uL (130-400); RBC 3.41 10x6/uL (4.20-6.10); RDW 12.4 % (11.5-14.5); WBC 10.9 10x3/uL (4.8-10.8)
[2019-06-10 06:16] LABS: CALC OSMOLALITY 275 mosm/kg (275-300); CALCIUM 8.8 mg/dL (8.5-10.1); CARBON DIOXIDE 28.9 mmol/L (21.0-32.0); CHLORIDE - SERUM 98 mmol/L (98-107); GLUCOSE 200 mg/dL (74-106); POTASSIUM - SERUM 4.9 mmol/L (3.5-5.1); SODIUM 134 mmol/L (136-145); UREA NITROGEN 18 mg/dL (7-18); eGFR NON AFRICAN AMERICAN 83 mL/min (90-120)
--- NOTE | 2019-06-10 07:58 | NUR ---
ASSESSMENT DONE. DENIES NEEDS
[2019-06-10 09:04] VITALS: BP 111/64
--- NOTE | 2019-06-10 09:06 | NUR ---
I have reviewed this patient and I concur with the Shift Assessment completed by the Licensed Practical Nurse today this shift.
--- NOTE | 2019-06-10 12:11 | NUR ---
TO CIRCULAR SHEAR OPERATOR PER BED
--- NOTE | 2019-06-10 12:54 | NUR ---
DC HOME PER PERSONAL CAR
[2019-06-10] MEDS ORDERED: PLAVIX75 MG (13:29)
--- NOTE | 2019-06-10 13:29 | NUR ---
PER PATIENT REQUEST I CALLED PLAVIX IN TO [facility], 75MG #30 WITH 6 REFILLS.
--- NOTE | 2019-06-10 13:37 | NUR ---
RETURN FROM POWDER EXPERT PER BED, RT JACK SHIN C/D/I
--- NOTE | 2019-06-10 13:39 | NUR ---
CYNTHIAShanda HAS NOT HAD A FLU SHOT THIS YEAR, ORDERED.
[2019-06-10 15:55] VITALS: BP 113/71
--- NOTE | 2019-06-10 16:54 | MORECARE ---
CASE MANAGEMENT DISCHARGE SUMMARY PATIENT: LETA GARCIA JR UNIT: [id number] ADM DATE: 06/09/19 AGE: 54 : 65 SEX: M ROOM/BED: D.2120 AUTHOR: QUIN CRUZ PHYSICIAN: REFERRING PHYSICIAN: JANELL PETTIT MD DATE OF SERVICE: 06/10/19 Discharge Plan Patient Name: LETA GARCIA [facility] : 1965 Planned Disposition: Home Anticipated Discharge Date: 06/10/19 Discharge Date: Expected LOS: 1 Initial Reviewer: [email or web address] Initial Review Date: 06/10/2019 Generated: 06/10/19 5:53 pm Patient Name: LETA GARCIA Page [phone] at 1654 All edits/amendments must be made on the electronic document DICTATION DATE: 06/10/191652 IMAGERY ANALYST: KAYY 06/10/191652 RPT#: [id number] DC DATE: STATUS: ADM IN [facility] [address] [place] [address] END OF REPORT
--- NOTE | 2019-06-10 17:19 | NUR ---
DC GIVEN TO PT
--- NOTE | 2019-06-10 17:21 | NUR ---
DC HOME PER PERSONAL CAR
--- NOTE | 2019-06-18 11:40 | DS ---
PATIENT:LETA CARBAJAL JR :65 MEDICAL RECORD: [id number] DISCHARGE SUMMARY ADMISSION DATE: 06/09/19 DISCHARGE DATE: 06/10/19 DISCHARGE DIAGNOSES: 1. Unstable angina. 2. Coronary artery disease. 3. Percutaneous transluminal coronary angioplasty stent of left circumflex this admission. HOSPITAL COURSE: Mr. Carbajal presents with anginal symptomatology, found to have significant disease of the left circumflex, underwent successful PTCA stent of the left circumflex, discharged home with the addition of aspirin and Plavix to his medical regimen. Follow up with [facility] in 1 month. TRANSINT:[id number] Voice Confirmation ID: [id number] DOCUMENT ID: [id number] JANELL PETTIT MD at 1140 CC: [id number] DICTATION DATE: 06/10/19 1249 BLOOD TESTER FOWL: 06/11/19 0042 DIS IN 06/10/[address] [facility] [address] [place] [address]
--- NOTE | 2019-06-18 11:40 | OP ---
PATIENT NAME: LETA GARCIA JR MEDICAL RECORD: [id number] :65 LOCATION:D.M2 D.2120 ADMISSION DATE:06/09/19 SURGEON: JANELL PETTIT MD DATE OF OPERATION: 06/10/2019 PROCEDURES: 1. PTCA stent left circumflex. 2. Left heart catheterization. 3. Selective coronary angiography. 4. Left ventriculogram. INDICATION: Unstable angina and coronary artery disease. PROCEDURE PERFORMED: After informed consent was obtained and after a detailed description of risks, benefits as well as alternative therapies, the patient elected to proceed with angiogram and angioplasty. The right femoral area was prepped and draped in normal sterile fashion. Right femoral artery was cannulated via modified Seldinger technique with placement of 6-Argentine sheath. All catheters exchanged through this sheath. FINDINGS: Left ventriculogram was performed in standard 30-degree PEREZ view, reveals good cardiac wall motion, ejection fraction 65%. SELECTIVE CORONARY ANGIOGRAPHY: 1. Left main is with no significant angiographic disease. 2. Left anterior descending has previously placed stents with no significant restenosis. No significant disease elsewise throughout the LAD or its branches. 3. Left circumflex has previously placed stents with 90% in-stent restenosis at the ostium, otherwise only mild irregularities. 4. The right coronary artery has mild irregularities, but no flow-limiting stenosis. PTCA STENT OF THE LEFT CIRCUMFLEX: The stent used was a 3.5 x 8 mm [place] taken to 23 atmospheres. Result was 0% residual stenosis. OVERALL IMPRESSION: Successful percutaneous transluminal coronary angioplasty stent of the left circumflex going from 90% in-stent restenosis to 0% residual stenosis. TRANSINT:[id number] Voice Confirmation ID: [id number] DOCUMENT ID: [id number] JANELL PETTIT MD at 1140 CC: [id number] DICTATION DATE: 06/10/19 1248 SENIOR SALES ASSOCIATE: 06/10/19 1315 DIS IN 06/10/19 [place] [id number]
--- NOTE | 2019-06-18 11:40 | HP ---
PATIENT: LETA CARBAJAL JR MEDICAL RECORD: [id number] ACCOUNT: [id number] LOCATION:[address] : 65 ADMISSION DATE: 06/09/19 PCP: TONE Garcia HISTORY AND PHYSICAL EXAMINATION DIAGNOSES: 1. Unstable angina class IV. 2. Coronary artery disease. 3. Previous multivessel PTCA and stent. 4. Hypertension. 5. Hyperlipidemia. 6. Alc-btpkaza-ajroipaoh diabetes. HISTORY OF PRESENT ILLNESS: Mr. Carbajal is known to us with past history of 17 PTCA and stent events throughout his vessels. He has had 1 week of increasing episodes of chest pain, chest discomfort compatible with angina as well as shortness of breath. Over the past 2 days, it has worsened to class IV rest pain along with shortness of breath. He has had recurrent episodes of the chest pain. It is just like that of his previous angina. A pressure, dull, aching, heavy sensation with radiation to his neck and jaw. Last cardiac stent was in August. PHYSICAL EXAMINATION: CONSTITUTIONAL/GENERAL APPEARANCE: Well nourished, well developed, appears stated age. EYES: Lids and conjunctivae noninjected. No discharge. No pallor. ENT: Lips within normal limit. No cyanosis. No pallor. NECK: Carotid arteries, bilateral normal upstroke. No bruits. No thrills. No jugular venous pressure or distention. CERVICAL LYMPH NODES: Nontender. Nonenlarged. THYROID: Not enlarged. No nodules. CARDIOVASCULAR: Precordial exam, nondisplaced. No heaves or pericardial thrills. Rate and rhythm, regular. Heart sounds, normal S1, normal S2. No S3, no gallop, no rub. Systolic murmur, not heard. Diastolic murmur, not heard. RESPIRATORY: Respiratory effort, unlabored. Normal curvature. No thoracic deformity. No chest wall tenderness. Percussion, resonant. Auscultation, clear. No wheezes, no rales, no rhonchi. ABDOMEN: Soft, nondistended, nontender. No abdominal pain, no vomiting and normal appetite. MUSCULOSKELETAL: No joint tenderness, normal gait, normal tone. SKIN: Warm and dry. OVERALL IMPRESSION: Unstable anginal symptomatology. At this time, he is on an JOHN inhibitor and beta-brittney. We will add a long-acting nitrate. Proceed with coronary angiography in the a.m. if he continues to have anginal chest discomfort. TRANSINT:[id number] Voice Confirmation ID: [id number] DOCUMENT ID: [id number] HISTORY AND PHYSICAL [id number] LETA CARBAJAL JR, JEFFREY MD at 1140 CC: [id number] DICTATION DATE: 06/09/19 1038 GENERAL MAINTENANCE ENGINEER: 06/09/19 1118 DIS IN 06/10/19 [facility] [address] [place] [address]
== END 2019-06-10 17:22 | disposition home or self-care (01) ==
LOC: D.ER 05:31 → D.M2 06:59 → OBSVTIME 07:11 → D.M2 06-10 17:22
PROVIDERS: Family Medicine; ADMIT Internal Medicine Interventional Cardiology; ATTEND Internal Medicine Interventional Cardiology
DX: I25.110 Atherosclerotic heart disease of native coronary artery with unstable angina pectoris (principal); I10 Essential (primary) hypertension; E78.5 Hyperlipidemia, unspecified; E11.9 Type 2 diabetes mellitus without complications

== ENCOUNTER → 2019-07-29 11:48 | Outpatient (CLI) | payer MEDICAID ==
[2019-06-09 10:36] VITALS: BMI 30.4
[~2019-07-29 11:48] MED LIST changes: +HYDROCODON-ACE1 EA10 PO; +NEURONTIN800 MG PO; +PLAVIX75 MG
== END | disposition home or self-care (01) ==
LOC: D.NM 11:48
PROVIDERS: ATTEND Orthopaedic Surgery
DX: Z96.641 Presence of right artificial hip joint (principal)

== ENCOUNTER 2020-04-23 23:36 | Emergency (ER) | payer MEDICAID ==
[~2020-04-23] VITALS: Ht 172.7 cm; Wt 86.4 kg
[2020-04-23 23:38] VITALS: Ht 172.7 cm; Wt 86.4 kg
[2020-04-24 00:17] LABS: HEMATOCRIT 39.5 % (42.0-54.0); HEMOGLOBIN 13.4 g/dL (13.5-17.5); LYMPHOCYTES 30.6 % (15-50); MCH 31.3 pg (26.0-34.0); MCHC 33.9 g/dL (31.0-37.0); MCV 92.3 fL (80.0-100.0); MEAN PLATELET VOLUME 9.6 fL (7.4-10.4); NEUTROPHILS 59.6 % (40-80); PLATELET COUNT 237 10x3/uL (130-400); RBC 4.28 10x6/uL (4.20-6.10); WBC 11.6 10x3/uL (4.8-10.8)
[2020-04-24 00:28] LABS: CARBON DIOXIDE 26.5 mmol/L (21.0-32.0); CREATININE - SERUM 1.3 mg/dL (0.6-1.3); POTASSIUM - SERUM 3.5 mmol/L (3.5-5.1)
[2020-04-24 00:35] LABS: ALBUMIN 3.5 g/dL (3.4-5.0); BILIRUBIN - TOTAL 0.2 mg/dL (0.2-1.3); MAGNESIUM - SERUM 1.4 mg/dL (1.8-2.4); PROTEIN - SERUM 7.4 g/dL (6.4-8.2); VALPROIC ACID (DEPAKOTE) 25.6 ug/mL (50.0-100.0)
[2020-04-24 02:20] VITALS: BP 145/80
== END 2020-04-24 02:20 | disposition home or self-care (01) ==
LOC: D.ER 23:36
PROVIDERS: Family Medicine
DX: G40.909 Epilepsy, unspecified, not intractable, without status epilepticus (principal); E11.9 Type 2 diabetes mellitus without complications; Z79.84 Long term (current) use of oral hypoglycemic drugs; Z95.5 Presence of coronary angioplasty implant and graft; E78.5 Hyperlipidemia, unspecified; I10 Essential (primary) hypertension; I25.10 Atherosclerotic heart disease of native coronary artery without angina pectoris

== ENCOUNTER 2020-12-05 18:01 | Emergency (ER) | payer MEDICAID ==
[~2020-12-05] VITALS: Ht 172.7 cm; Wt 90.9 kg
[2020-12-05 18:08] VITALS: BP 182/88; Ht 172.7 cm; Wt 90.9 kg
[2020-12-05] MEDS ORDERED: TYLENOL W/CODEI1 TAB PO (19:06)
== END 2020-12-05 19:29 | disposition home or self-care (01) ==
LOC: D.ER 18:01
DX: S99.921A Unspecified injury of right foot, initial encounter (principal); M79.671 Pain in right foot; E11.9 Type 2 diabetes mellitus without complications; E78.5 Hyperlipidemia, unspecified; I10 Essential (primary) hypertension; Z72.0 Tobacco use; Z79.84 Long term (current) use of oral hypoglycemic drugs; W20.8XXA Other cause of strike by thrown, projected or falling object, initial encounter; Y93.9 Activity, unspecified; Y92.9 Unspecified place or not applicable

== ENCOUNTER 2021-02-15 16:20 | Inpatient (IN) | payer MEDICAID ==
[~2021-02-15] VITALS: Ht 172.7 cm; Wt 90.7 kg
--- NOTE | ~2021-02-15 | HEMODYNAMI ---
PATIENT:LETA GARCIA JR MEDICAL RECORD: [id number] : 65 LOCATION:[address] ADMISSION DATE: 02/15/21 Generatedon:110:15 Patient name: LETA GARCIA Patient #: [id number] SSN: [id number] : 1965 Date of study: 02/17/2021 Page: Of Hemodynamic Procedure Report Patient Data Patient Demographics Procedure consent was obtained First Name: LETA Gender: Male Last Name: RADHA Suffix: Jr Ruano Initial: ANGELINA : 1965 Patient #: [id number] Age: 55 year(s) Race: SSN: [id number] Additional ID: [id number] Contact details Address: [place] [address] State: [place] City: [place] Zip code: [address] Past Medical History Allergies: No known allergies Admission Admission Data Admission Date: 02/15/2021 Admission Time: 18:13 Room #: 2104 Procedure Procedure Types Cath Procedure Peripheral Cath Diagnostic Procedure Miscellaneous Procedure Description Procedure Date Procedure Date: 02/17/2021 Procedure Start Time: 9:50 Procedure Staff Name Function Leta King MD Performing Physician Robin Jay RT Monitor FELICITY NAQVI RT Scrub Lisa Sampson RN Nurse Brittanie Link RN Nurse Procedure Data Cath Procedure Fluoroscopy Diagnostic fluoroscopy Total fluoroscopy Time: 1.4 time: 1.4 min min Diagnostic fluoroscopy Total fluoroscopy dose: 453 dose: 453 mGy mGy Contrast Material Contrast Material Type Amount (ml) Isovue 300 90 Entry Location Entry Primary Successful Side Size Upsize Upsize Entry Closure Succes sful Closure Location (Fr) 1 (Fr) 2 (Fr) Remarks Device Remarks Femoral Right 5 Fr Exoseal artery Diagnostic catheters Device Type Used For End Catheter Placement Merit ULTRA BOLUS FLUSH Cervicocerebral 5Fr 90CM catheter (arch) aortogram ([id number]) Procedure Medications Medication Administration Route Dosage Lidocaine 1% added to field 20 Heparin Flush Bag added to field 2 bags (1000units/500ml NS) Fentanyl I.V. 50 mcg Versed I.V. 1 mg Versed I.V. 0.5 mg Fentanyl I.V. 25 mcg Hemodynamics Rest Heart Rate: 75 (bpm) Snapshots Pre Cath Intra NCS Post Cath Vital Signs Time Heart Resp SPO2 etCO2 NIBP (mmHg) Rhythm Pain Sedation Rate (ipm) (%) (mmHg) Status Level (bpm) 9:32:28 87 13 100 24.9 180/111(147) NSR 0 (11) 10(A) , No pain 9:37:27 15 100 33.2 Auto NIBP NSR 0 (11) 10(A) off , No pain 9:42:26 80 14 100 33.9 Auto NIBP NSR 0 (11) 10(A) off , No pain 9:42:30 79 14 100 33.9 160/95(132) NSR 0 (11) 10(A) , No pain 9:45:38 83 14 100 33.2 Auto NIBP NSR 0 (11) 10(A) off , No pain 9:49:54 87 14 100 22.6 169/98(124) NSR 0 (11) 10(A) , No pain 9:54:11 82 14 100 29.4 172/99(135) NSR 0 (11) 10(A) , No pain 9:58:30 86 13 99 31.7 181/100(137) NSR 0 (11) 10(A) , No pain 10:02:51 84 11 99 0 159/92(123) NSR 0 (11) 8(A) , No pain 10:07:07 85 11 99 40.7 170/95(143) NSR 0 (11) 8(A) , No pain 10:12:06 86 11 100 0 Measuring NSR 0 (11) 8(A) , No pain 10:12:18 86 11 99 39.2 157/92(126) NSR 0 (11) 8(A) , No pain Medications Time Medication Route Dose Verified Delivered Reason Notes Effect iveness by by 9:13:25 Lidocaine 1% added 20ml Leta Perez used for to vial Fernando King procedure field MD SIFUENTES 9:13:54 Heparin Flush added 2 Leta Perez used for Bag to bags Fernando King procedure (1000units/500ml field MD SIFUENTES NS) 9:53:54 Fentanyl I.V. 50 Leta Gonzalez for hailey Sampson sedation RN 9:54:10 Versed I.V. 1 mg Leta Gonzalez for Fernando davis MD RN 9:58:36 Versed I.V. 0.5 Leta Gonzalez for mg Fernando davis MD RN 9:58:43 Fentanyl I.V. 25 Leta Gonzalez for mcg Fernando davis MD cloth weaver Log Time Note 9:13:25 Lidocaine 1% 20ml vial added to field was administered by Leta scott MD; used for procedure; Verbal order read back and verified. 9:13:54 Heparin Flush Bag (1000units/500ml NS) 2 bags added to field was administered by Leta King MD; used for procedure; Verbal order read back and verified. 9:19:13 Robin Jay RT (R) (CV) sent for patient. Start room use. 9:19:31 Time tracking: Regular hours (M-F 7:00 - 5:00) 9:19:37 Plan of Care:Hemodynamics will remain stable., Cardiac rhythm will remain stable., Comfort level will be maintained., Respiratory function will remain adequate., Patient/ family verbilizes understanding of procedure., Procedure tolerated without complication., Recovers from procedure without complications.. 9:19:44 Patient received from Med II to IR Alert and oriented. Tansferred to table in Supine position. 9:19:49 Signed procedure consent form obtained from patient. 9:19:50 Correct patient and procedure confirmed by team. 9:19:54 Use device set IR Diagnostic 9:19:56 ACIST Syringe (40145) opened to sterile field. 9:19:56 ACIST Hand Control (12391) opened to sterile field. 9:19:57 ACIST Manifold (69241) opened to sterile field. 9:19:57 Bag Decanter () opened to sterile field. 9:19:58 Sterile Angiographic Pack opened to sterile field. 9:19:58 Tegaderm 4 x 4 (1626W) opened to sterile field. 9:20:44 ECG and BP/O2 sat monitors applied to patient. 9:20:45 Full Disclosure recording started 9:20:46 - 9:20:51 H&P Date Dictated: 02/17/2021 Within 30 days and on chart.. ::53 Pre-procedure instructions explained to patient. ::53 Pre-op teaching completed and patient verbalized understanding. 9:20:56 Patient NPO since Midnight. ::53 Maximum allowable contrast dose (3.7 X eGFR X 0.75)185.92 ml. 9:21:57 2) 60-89 Mildly reduced kidney function, and other findings (as for stage 1) point to kidney disease. 9:22:02 Sharps counted by scrub and verified by R.N. 9:22:03 Alarms reviewed by Sandy Huerta 9:22:07 Right groin area was prepped with chlora-prep and draped in sterile fashion 9:22:38 NO KNOWN DRUG ALLERGIES 9:22:42 Is the patient allergic to Iodine/contrast media? No. 9:22:46 Is patient on blood thinner?Yes 9::53 ACC The patient was administered the following blood thiners within the last 24 hours: ACCAspirin, ACCPlavix, ACCLovenox 9:22:57 Patient diabetic? Yes. 9:23:16 If diabetic: On Metformin? Yes 9:23:47 If on Metformin: Last Dose? 02/15/2021 9:23:48 - 9:25:43 IV patent on arrival in left antecubital with 0.9% NaCl at KVO. 9:25:51 ----Pre-sedation anethsthesia assessment.---- 9:25:54 Previous problem with sedation/anesthesia? No ? 9:25:58 Snore? Yes 9:26:00 Sleep apnea? No 9:26:01 Deviated septum? No 9:26:04 Opens mouth fully? Yes 9:26:06 Sticks out tongue? Yes 9:26:08 Airway obstruction? No ? 9:26:14 Dentures? No OUT 9:31:17 Vital chart was started 9:32:46 Baseline sample Acquired. 9:45:24 Vital chart was stopped 9:45:28 Vital chart was started 9:48:33 Physician arrived 9:48:33 --------ALL STOP TIME OUT------ 9:48:36 Final Timeout: patient, procedure, and site verified with staff and physician. All members of the team are in agreement. 9:48:38 Right groin site verified by team. 9:48:43 Fire Safety Assessment: A--An alcohol-based skin anteseptic being used preoperatively., C--Open oxygen or nitrous oxide is being used. 9:48:49 Sedation plan: IV Moderate Sedation Medication:Versed, Fentanyl 9:50:21 Procedure started. 9:50:24 Local anesthetic to right femoral artery with Lidocaine 1% by Leta King MD.INITIAL ACCESS ONLY 9:53:54 Fentanyl 50 mcg I.V. was administered by Lisa Sampson RN; for sedation; Verbal order read back and verified. 9:54:10 Versed 1 mg I.V. was administered by Lisa Sampson RN; for sedation; Verbal order read back and verified. 9:55:37 BENTSON 145cm wire ([id number]) opened to sterile field. 9:55:38 Micropuncture VSI 4FR kit opened to sterile field. 9:55:38 TUBING High Pressure Extension (IABP) opened to sterile field. 9:55:38 TUBING Contrast Injection High Pressure ([id number]) opened to sterile field. 9:55:39 SHEATH 5FR [facility] (XZW938) opened to sterile field. 9:55:44 AMPLATZ Super Stiff 75cm wire ([id number]) opened to sterile field. 9:58:36 Versed 0.5 mg I.V. was administered by Lisa Sampson RN; for sedation; Verbal order read back and verified. 9:58:41 Access obtained with 4Fr micropunture. 9:58:43 Fentanyl 25 mcg I.V. was administered by Lisa Sampson RN; for sedation; Verbal order read back and verified. 9:58:50 A 5 Fr sheath was inserted into the Right Femoral artery 9:59:42 A Seva Search ULTRA BOLUS FLUSH 5Fr 90CM catheter ([id number]) was advanced over the wire and used for Cervicocerebral (arch) aortogram. 10:11:03 EXOSEAL 5Fr (EX500) opened to sterile field. 10:11:18 Sheath removed intact; hemostasis achieved with Exoseal to the Right Femoral artery. 10:11:24 Procedure ended.(Physican Out) 10:11:36 Fluoroscopy time 01.40 minutes. 10:11:40 Fluoroscopy dose: 453 mGy 10:11:40 Flurop Dose total: 453 10:11:46 Contrast amount:Isovue 300 90ml. 10:11:48 Sharps counted by scrub and verified by R.N. 10:11:49 Insertion/operative site no bleeding no hematoma. 10:11:53 Post-op/insertion site Right Femoral artery dressed using a 4 x 4 and Tegaderm. 10:11:55 Post Procedure Pulses reassessed and unchanged 10:11:59 Procedure and supply charges have been captured, reviewed, submitted an d are correct. 10:12:00 Post procedure instruction explained to patient.Patient verbalizes understanding. 10:15:20 Report given to Med II. 10:15:23 Patient transfered to Med II with Stretcher. 10:15:52 Vital chart was stopped Device Usage Item Name Manufacture Quantity Catalog Number [facility] Lot# / Charge Number Stock Stock Serial# Code ACIST Syringe Acist 1 64607 896258 851770 [id number] 20 (41818) Medical Systems Inc ACIST Hand Acist 1 42855 166479 374883 452489 5 Control Medical (46452) Systems Inc ACIST Manifold Acist 1 44616 160779 165817 438035 5 (69253) Medical Systems Inc Bag Decanter Microtek 1 2001S 370144 35212 512575 5 () Medical Inc. Sterile Cardinal 1 [id number] 939756 301656 5 Angiographic Health Pack Tegaderm 4 x 4 3M 1 1626W 789267 073733 478842 5 (1626W) BENTSON 145cm Cook Medical 1 X75265 042800 110297 5 wire ([id number]) Micropuncture VSI VASCULAR 1 7266V 845140 862644 5 VSI 4FR kit SOLUTIONS TUBING High Merit 1 [id number] 652882 051119 024534 5 Pressure Medical Extension (IABP) TUBING Merit 1 [id number] 058893 151448 381483 5 Contrast Medical Injection High Pressure ([id number]) SHEATH 5FR Terumo 1 MHQ717 811219 818813 124635 5 [facility] (IEK042) Merit ULTRA Merit 1 [id number] 668873 303310 5 BOLUS FLUSH Medical 5Fr 90CM catheter ([id number]) AMPLATZ Super [place] 1 [id number] 082605 997748 382060 5 [id number] Stiff 75cm Scientific wire ([id number]) EXOSEAL 5Fr Cardinal 1 EX500 387620 516269 953761 10 [id number] (EX500) Health Signature Audit Ninole Stage Time Signature Unsigned Intra-Procedure 02/17/2021 Robin 10:15:48 AM Misty RT (R) (CV) [facility] [address] [place] [address]
[2021-02-15 18:07] LABS: APTT 30.7 SECONDS (22.8-39.4); INR 0.99 (0.85-1.17); PROTIME 12.1 SECONDS (11.6-15.0)
[2021-02-15 18:09] LABS: CALC OSMOLALITY 284 mosm/kg (275-300); CALCIUM 9.4 mg/dL (8.5-10.1); CARBON DIOXIDE 25.4 mmol/L (21.0-32.0); CHLORIDE - SERUM 98 mmol/L (98-107); CREATININE - SERUM 1.2 mg/dL (0.6-1.3); POTASSIUM - SERUM 4.6 mmol/L (3.5-5.1); SODIUM 136 mmol/L (136-145); UREA NITROGEN 19 mg/dL (7-18); eGFR NON AFRICAN AMERICAN 67 mL/min (90-120)
[2021-02-15 18:10] LABS: BASOPHILS 0.6 % (0-2); EOSINOPHILS 1.7 % (0-7); GLUCOSE 293 mg/dL (74-106); HEMATOCRIT 40.6 % (42.0-54.0); HEMOGLOBIN 13.5 g/dL (13.5-17.5); LYMPHOCYTES 35.1 % (15-50); MCHC 33.2 g/dL (31.0-37.0); MCV 87.2 fL (80.0-100.0); MEAN PLATELET VOLUME 8.3 fL (7.4-10.4); MONOCYTES 7.1 % (2-11); NEUTROPHILS 55.5 % (40-80); PLATELET COUNT 278 10x3/uL (130-400); RBC 4.65 10x6/uL (4.20-6.10); RDW 13.6 % (11.5-14.5); WBC 11.9 10x3/uL (4.8-10.8)
[2021-02-15 18:25] LABS: ALBUMIN 3.8 g/dL (3.4-5.0); ALKALINE PHOSPHATASE 55 U/L (30-120); ALT (SGPT) 30 U/L (10-68); BILIRUBIN - TOTAL 0.25 mg/dL (0.2-1.3); CKMB 1.8 U/L (0.0-3.6); CREATINE KINASE 121 UL (21-232); MAGNESIUM - SERUM 1.6 mg/dL (1.8-2.4); PROTEIN - SERUM 7.9 g/dL (6.4-8.2)
[2021-02-15 18:26] LABS: TROPONIN-I < 0.017 ng/mL (0.000-0.060)
[2021-02-15] MEDS ORDERED: LISINOPRIL-HCT1 EAC8 (18:57)
[2021-02-15] MEDS ORDERED: HYDROCODON-ACE1 EAC7 (18:58)
--- NOTE | 2021-02-15 19:39 | NUR ---
MRI HERE TO TAKE PT TO MRI, PT STATES HE THINKS HE FEELS RELAXED ENOUGH TO HAVE THE MRI NOW
--- NOTE | 2021-02-15 20:10 | NUR ---
PT BACK FROM MRI, TRIED TO GET VS FROM PT, PT REFUSED TO LET ME GET ANY VITAL SIGNS
--- NOTE | 2021-02-15 20:13 | NUR ---
WENT TO CHECK PYXIS FOR INSULIN, STILL NONE, CALLED PHARMACY TO REFILL
[2021-02-15 20:45] VITALS: BP 168/85
--- NOTE | 2021-02-15 21:00 | NUR ---
PT ASKING FOR NORCO PAIN MEDICATION, TOLD PT NONE WAS ORDERED - PT DIFFICULT TO WAKE UP AT THIS TIME AND DROOLING IN BED
[2021-02-15 21:17] LABS: ERYTHROCYTE SEDIMENTATION RATE 51 mm/hr (0-20)
--- NOTE | 2021-02-15 22:27 | NUR ---
PT ASKING FOR PAIN MEDICATION AGAIN AFTER SHAKING PT AND SAYING HIS NAME TO WAKE HIM UP, TRIED TO TALK WITH PT, PT UNABLE TO STAY AWAKE TO TALK WITH NURSE
[2021-02-16 02:07] VITALS: BP 185/96; BMI 30.4
--- NOTE | 2021-02-16 02:50 | NUR ---
REPORT RECEIVED. PT A&O W/ SLURRED SPEECH BUT EASILY AGGRAVATED AND ANGERED. PT WAS VERBALLY AGGRESSIVE WITH THIS NURSE AND ILSA CAVAZOS WHEN TRYING TO HELP HIM AMBULATE TO BATHROOM. IV TO L AC W/ SL AT 75. SR 88 ON TELE. BED LOCKED AND LOWERED, CL IN REACH. WILL CONT POC.
--- NOTE | 2021-02-16 03:56 | NUR ---
ENTERED PTS ROOM TO ADMINISTER INSULIN AND NOTED CIGARETTE SMELL. ASKED PT IF HE HAD BEEN SMOKING; HE DENIED ANY USE. THIS NURSE HAD TOLD PT UPON ADMISSION THAT HE NEEDED TO PUT HIS RED CARTON OF CIGARETTES AWAY AND THAT HE COULD NOT SMOKE IN THE HOSPITAL. PT STATED HE WOULD. SECURITY CAME TO SPEAK WITH PT ABOUT THE CIGARETTE SMELL. PT DENIES HAVING ANY; THIS NURSE SAW THE CIGARETTES UPON ADMISSION.
[2021-02-16 05:44] LABS: BASOPHILS 0.5 % (0-2); EOSINOPHILS 1.2 % (0-7); HEMATOCRIT 38.9 % (42.0-54.0); HEMOGLOBIN 13.2 g/dL (13.5-17.5); LYMPHOCYTES 34.3 % (15-50); MCH 29.9 pg (26.0-34.0); MCHC 33.9 g/dL (31.0-37.0); MCV 88.2 fL (80.0-100.0); MONOCYTES 8.2 % (2-11); NEUTROPHILS 55.8 % (40-80); PLATELET COUNT 261 10x3/uL (130-400); RBC 4.41 10x6/uL (4.20-6.10); RDW 13.7 % (11.5-14.5); WBC 10.7 10x3/uL (4.8-10.8)
[2021-02-16 05:59] LABS: ALBUMIN 3.9 g/dL (3.4-5.0); ALKALINE PHOSPHATASE 57 U/L (30-120); ALT (SGPT) 27 U/L (10-68); BILIRUBIN - TOTAL 0.15 mg/dL (0.2-1.3); CALCIUM 9.3 mg/dL (8.5-10.1); CARBON DIOXIDE 26.6 mmol/L (21.0-32.0); CHLORIDE - SERUM 95 mmol/L (98-107); CHOL - HDL RATIO 7.8 ratio (2.3-4.9); CHOLESTEROL, TOTAL 288 mg/dL (0-200); CREATININE - SERUM 1.4 mg/dL (0.6-1.3); HDL CHOLESTEROL 37 mg/dL (32-96); MAGNESIUM - SERUM 1.6 mg/dL (1.8-2.4); SODIUM 135 mmol/L (136-145); UREA NITROGEN 19 mg/dL (7-18); eGFR NON AFRICAN AMERICAN 56 mL/min (90-120)
[2021-02-16 06:04] VITALS: BP 207/112
[2021-02-16 06:13] LABS: CALC OSMOLALITY 287 mosm/kg (275-300); GLUCOSE 379 mg/dL (74-106); POTASSIUM - SERUM 3.6 mmol/L (3.5-5.1); TRIGLYCERIDE 709 mg/dL (30-200)
--- NOTE | 2021-02-16 08:31 | NUR ---
REHAB PRESCREEN ORDER RECEIVED. UNFORTUNATELY PATIENT IS TRADITIONAL MEDICAID AND WE ARE UNABLE TO TAKE THIS INSURANCE. THANK YOU FOR THE REFERRAL. ALIX AMADOR RN CLINICAL LIAISON, INPATIENT REHAB.
[2021-02-16 09:00] VITALS: BP 181/109
[2021-02-16 12:23] VITALS: BMI 30.4
[2021-02-16 13:41] LABS: UDS - AMPHET NEGATIVE QUAL (NEGATIVE); UDS - BARB NEGATIVE QUAL (NEGATIVE); UDS - BENZO NEGATIVE QUAL (NEGATIVE); UDS - COCAINE NEGATIVE QUAL (NEGATIVE); UDS - OPIATE NEGATIVE QUAL (NEGATIVE); UDS - PCP NEGATIVE QUAL (NEGATIVE); UDS - THC POSITIVE QUAL (NEGATIVE)
[2021-02-16 18:02] VITALS: Ht 172.7 cm; Wt 90.7 kg
[2021-02-16 20:00] VITALS: BP 153/72
--- NOTE | 2021-02-16 20:00 | NUR ---
REPORT RECEIVED. PT A&O, UP IN BED RESTING QUIETLY. NO S/S OF DISTRESS OBSERVED. RR EVEN & UNLABORED ON RA. SR 85 ON TELE. 20G IV TO RAC PATENT, SL. R FACIAL DROOP W/ R ARM WEAKNESS NOTED; UNCHANGED FROM PREVIOUS ASSESSMENTS. BED LOCKED AND LOWERED, CL IN REACH. WILL CONT POC.
[2021-02-16] MEDS ORDERED: NOVOLOG100 UNIT/1 SC (21:00)
[2021-02-17 02:03] VITALS: BP 130/78
[2021-02-17 06:39] LABS: PLT FUNCT.(P2Y12) PLAVIX 115 PRU (194-418)
[2021-02-17 06:50] VITALS: BP 154/83
[2021-02-17 06:52] LABS: BASOPHILS 0.6 % (0-2); EOSINOPHILS 3.1 % (0-7); HEMATOCRIT 34.8 % (42.0-54.0); HEMOGLOBIN 11.9 g/dL (13.5-17.5); LYMPHOCYTES 43.5 % (15-50); MCH 29.9 pg (26.0-34.0); MCHC 34.2 g/dL (31.0-37.0); MCV 87.3 fL (80.0-100.0); MEAN PLATELET VOLUME 8.3 fL (7.4-10.4); MONOCYTES 9.1 % (2-11); NEUTROPHILS 43.7 % (40-80); PLATELET COUNT 206 10x3/uL (130-400); RBC 3.98 10x6/uL (4.20-6.10); RDW 13.6 % (11.5-14.5); WBC 10.3 10x3/uL (4.8-10.8)
[2021-02-17 07:34] VITALS: BP 154/83
--- NOTE | 2021-02-17 08:55 | NUR ---
TRYING TO TREAT PATIENT WITH INSULIN BEFORE PROCEDURE REFUSES TO STAY IN ROOM AND GET READY. PUSHED ME OUT OF WAY AND SAID HE IS GOING TO MEET HIS DOWNSTAIRS. TOLD PATIENT THEY WERE COMING TO GET HIM FOR PROCEDURE AND HE COULD NOT LEAVE HE NEEDS TO GET IN A GOWN AND LIE DOWN. REFUSES. WALKS OUT.
[2021-02-17 08:56] LABS: ALBUMIN 3.5 g/dL (3.4-5.0); ANION GAP 14.5 mmol/L (8-16); BILIRUBIN - TOTAL 0.15 mg/dL (0.2-1.3); CALCIUM 8.6 mg/dL (8.5-10.1); CREATININE - SERUM 1.2 mg/dL (0.6-1.3); MAGNESIUM - SERUM 1.4 mg/dL (1.8-2.4); POTASSIUM - SERUM 3.5 mmol/L (3.5-5.1); PROTEIN - SERUM 6.7 g/dL (6.4-8.2)
[2021-02-17 09:00] VITALS: BP 151/77
[2021-02-17 09:00] LABS: APTT 33.2 SECONDS (22.8-39.4); INR 1.04 (0.85-1.17); PROTIME 12.6 SECONDS (11.6-15.0)
--- NOTE | 2021-02-17 09:15 | NUR ---
TREATED WITH 20 UNITS OF INSULIN. OFF FLOOR VIA BED FOR PROCEDURE.
--- NOTE | 2021-02-17 10:36 | NUR ---
BACK FROM PROCEDURE. DRESSING TO RIGHT GROIN, SOFT, NO BLEEDING. LAY FLAT FOR 4 HOURS. VS ON PAPER CHART.
--- NOTE | 2021-02-17 12:27 | NUR ---
OT NOTE: PT OUT FOR PROCEDURE.. WILL NEED TO LIE FLAT FOR 4 HRS AFTER RETURN FROM PROCEDURE.. WILL ATTEMPT TOMORROW. ZENON HOLLEY, OTR/L [phone]
[2021-02-17] MEDS ORDERED: BRILINTA90 MG PO (13:54)
[2021-02-17] MEDS ORDERED: LISINOPRIL40 MG PO (13:55)
[2021-02-17] MEDS ORDERED: LIPITOR20 MG PO (13:55)
--- NOTE | 2021-02-17 13:58 | NUR ---
PATIENT GONE FOR PROCEDURE, ON HOLD AFTER.
--- NOTE | 2021-02-17 16:26 | NUR ---
D/C LEFT AC IV, TIP INTACT. DISCHARGE INSTRUCTIONS GIVEN VERBALLY AND HANDOUTS PROVIDED. TAKEN DOWN TO ED ENTRANCE VIA WHEELCHAIR.
--- NOTE | 2021-02-18 08:29 | EC ---
PATIENT:LETA GARCIA JR DATE OF SERVICE: 02/15/21 SEX: M MEDICAL RECORD: [id number] DATE OF : [birth year] LOCATION:D.M2 D.210 AGE OF PATIENT: 55 ADMISSION DATE: 02/15/21 REFERRING PHYSICIAN: INTERPRETING PHYSICIAN: LANEY FOREMAN MD ECHOCARDIOGRAM REPORT ECHO CHARGES 4 ECHO COMPLETE Date: 02/16/21 CLINICAL DIAGNOSIS: CVA ECHOCARDIOGRAPHIC MEASUREMENTS (adult normal given) AC root (d.<3.7cm) 3.1 cm LV Septum d (<1.2 cm> 0.7 cm Valve Excursion 1.8 cm LV Septum (systole) 1.0 cm Left Atria (s.<4.0cm> 4.3 cm LVPW d(<1.2cm) 1.0 cm RV (d.<2.3cm) 3.5 cm LVPW (sytole) 1.2 cm LV diastole(<5.6CM) 6.4 cm MV E-F(>70mm/sec) cm LV systole 4.4 cm LVOT Diameter 1.7 cm MV exc.(>10mm) 1.6 cm Est.ejection fraction (50-75%) % DOPPLER: LVIT cm/sec A 39 cm/sec E 120 cm/sec LA cm/sec RVSP 27 mmHg LVOT 142 cm/sec AOP1/2T m/s Asc. Ao 147 cm/sec RVOT 107 cm/sec RA cm/sec PA 129 cm/sec AV Gradient Peak 8.7 mmHg AV Mean 4.3 mmHg AV Area 2.7 cm MV Gradient Peak 7.4 mmHg MV Mean 2.6 mmHg MV Area cm COMMENTS: Flight Line Mechanic: Monica GARLAND Metal Stamper: 3 Dr. Elizondo TAPE# Pericardial Effusion N DATE OF SERVICE: Adequate 2D, color-flow imaging, spectral Doppler, and M-Mode FINDINGS: No LVH. LV internal dimensions is normal. Wall motion is normal. EF is greater than or equal to 55%. Aortic valve is tricuspid. No evidence of stenosis by Doppler interrogation. Left atrium is mildly dilated at 4.3 cm. Mitral valve shows no prolapse. Trace MR. Right-sided chamber is grossly normal. Trace TR. ECHOCARDIOGRAM REPORT [id number] LETA GARCIA JR TRANSINT:[id number] Voice Confirmation ID: [id number] DOCUMENT ID: [id number] LANEY FOREMAN MD at 0829 CC: [id number] DICTATION DATE: 02/17/21930 UNIVERSITY PRESIDENT: 02/17/21 1004 DIS IN 02/17/21 [place] [id number] [place] [id number]
== END 2021-02-17 16:43 | disposition home or self-care (01) | DRG 65 ==
LOC: D.ER 16:20 → D.EDHOLD 18:13 → D.M2 18:13
PROVIDERS: Emergency Medicine; Radiology Diagnostic Radiology; Thoracic Surgery (Cardiothoracic Vascular Surgery); ADMIT Family Medicine; ATTEND Family Medicine
PROC: B3141ZZ Fluoroscopy of Left Common Carotid Artery using Low Osmolar Contrast (ICD-10-PCS; principal; 2021-02-17 09:35)
DX: I63.9 Cerebral infarction, unspecified (principal); F17.203 Nicotine dependence unspecified, with withdrawal; I69.351 Hemiplegia and hemiparesis following cerebral infarction affecting right dominant side; I10 Essential (primary) hypertension; Z79.84 Long term (current) use of oral hypoglycemic drugs; G40.909 Epilepsy, unspecified, not intractable, without status epilepticus; E11.65 Type 2 diabetes mellitus with hyperglycemia; D64.9 Anemia, unspecified; E83.42 Hypomagnesemia; E78.5 Hyperlipidemia, unspecified; I65.23 Occlusion and stenosis of bilateral carotid arteries; E78.2 Mixed hyperlipidemia; Z79.82 Long term (current) use of aspirin